=== PATIENT | male | born 1960 | race Caucasian/White ===

== ENCOUNTER → 2019-06-26 16:14 | Outpatient (CLI) | payer BC, SELFPAY ==
[2019-06-26 17:05] VITALS: BMI 50.0
== END ==
PROVIDERS: PCP Family Medicine; Visit Provider Family Medicine
DX: Z71.3 Dietary counseling and surveillance (principal)
CPT/HCPCS: 97802

== ENCOUNTER 2020-01-22 21:07 | Inpatient (IN) | payer BC, SELFPAY ==
--- NOTE | 2020-01-22 20:59 | ECG_ITS ---
APPROVED REPORT Exam: Resting ECG HR:110 bpm ECG Measurements Heart Rate 110 AXES CO 210 P 44 QRSd 88 QRS -19 QT 328 T 45 QTc 443 Conclusion Sinus tachycardia with 1st degree AV block with frequent and consecutive premature ventricular complexes Inferior infarct, age undetermined Anteroseptal infarct, age undetermined Abnormal ECG Electronically signed by : Camilo Lott, 01/24/2020 10:20:58
[2020-01-22 21:05] VITALS: BP 160/115; PULSE 101; PULSE 107; RESP 20; RESP 22; TEMP 37.2; O2SAT 88; O2SAT 92; BMI 47.5
--- NOTE | 2020-01-22 21:11 | XR_ITS ---
PROCEDURE: XR CHEST 2V CLINICAL HISTORY: cough, SOA COMPARISON: No exams were available for comparison FINDINGS: Cardiomegaly with pulmonary venous congestion interstitial edema and thickening of the right minor fissure consistent with congestive heart failure. Increased density in the right perihilar region which may be due to some pulmonary edema. Oxygen tubing overlying the upper chest and neck. No effusions. No acute bony anomalies. IMPRESSION: Congestive heart failure with interstitial and pulmonary edema Dictated by: Cecilio Mcdaniels MD 01/23/2020 05:24 Cecilio Mcdaniels MD in [facility] 01/23/2020 05:24
[2020-01-22 21:27] LABS: ABG HCO3 19.6 mmhg (22.0-26.0); ABG PCO2 31.6 mmhg (35.0-45.0); ABG PH 7.41 mmol/L (7.35-7.45); ABG PO2 58.9 mmhg (80-100)
[2020-01-22 21:30] LABS: Allen's Test Acceptable; Oxygen ROOM AIR %; Source Right Radial
[2020-01-22 21:31] LABS: ABG Base Excess -3.8 mmol/L (-2.4-2.3); ABG Oxygen Saturation 89 % (90-100)
[2020-01-22 21:35] VITALS: BP 139/76; PULSE 62; RESP 20; O2SAT 90
[2020-01-22 21:51] LABS: Lactic Acid 2.3 mmol/L (0.7-2.1)
[2020-01-22 22:28] LABS: Chloride 103 mmol/L (98-107); Sodium 139 mmol/L (136-145)
[2020-01-22 22:29] LABS: Basophils # 0.1 K/mm3 (0-0.2); Basophils % 0.4 % (0.1-2.0); Eosinophils # 0.4 K/mm3 (0.0-0.4); Eosinophils % 2.9 % (0.1-12.0); Hematocrit 49.7 % (42.0-52.0); Hemoglobin 16.5 g/dL (14.1-18.0); Lymphocytes # 2.9 K/mm3 (0.7-4.5); Mean Corpuscular HGB Conc 33.3 g/dL (31.8-35.4); Mean Corpuscular Hemoglobin 27.4 pg (27.0-31.2); Mean Corpuscular Volume 82.3 fl (80-94); Mean Platelet Volume 8.2 fl (7.4-10.4); Monocytes # 0.7 K/mm3 (0.1-1.0); Monocytes % 5.7 % (1.7-9.3); Neutrophils # 8.1 K/mm3 (1.8-7.8); Platelet Count 237 K/mm3 (142-424); Potassium 3.6 mmoL/L (3.5-5.1); Red Blood Count 6.04 M/mm3 (4.60-6.20); Red Cell Distribution Width 14.1 % (11.5-17.5); White Blood Count 12.1 K/mm3 (4.8-10.8)
[2020-01-22 22:30] VITALS: BP 142/93; PULSE 91; O2SAT 91
[2020-01-22 22:31] LABS: Alanine Aminotransferase 41 U/L (12-78); Albumin Level 4.4 g/dl (3.5-5.0); Alkaline Phosphatase 88 U/L (38-126); Anion Gap 15.6 mEq/L (5-15); Aspartate Amino Transferase 37 U/L (17-59); Bilirubin,Direct 0.2 mg/dl (0.0-0.4); Bilirubin,Indirect 0.3 mg/dL (0.0-0.9); Bilirubin,Total 0.5 mg/dl (0.2-1.3); Bilirubin,Unconjugated 0.3 mg/dL (0.0-1.1); Blood Urea Nitrogen 14 mg/dl (9-20); Calcium 9.7 mg/dl (8.4-10.2); Carbon Dioxide 24 mmol/L (22.0-30.0); Creatinine Clearance Estimated 109 mL/min (50-200); Estimated Glomerular Filt Rate 99 ml/min (>60); GFR (African American) 120 ML/MIN (>60); Glucose 206 mg/dl (74-100)
[2020-01-22 22:32] LABS: Total Protein,Serum 7.8 g/dl (6.3-8.2)
[2020-01-22 22:43] LABS: NT Pro Brain Natriuretic Pep. 491 pg/mL (0-125)
[2020-01-22 22:45] LABS: Troponin I 0.05 ng/ml (0.00-0.034)
[2020-01-22 22:50] LABS: Procalcitonin 0.082 ng/mL (0.0-2.0)
--- NOTE | 2020-01-22 22:53 | HMH.EDSOB ---
ED Disposition Clinical Impression: Non-STEMI (non-ST elevated myocardial infarction), Hyperlipidemia associated with type 2 diabetes mellitus Congestive heart failure Qualifiers: Heart failure type: unspecified Heart failure chronicity: acute Qualified Code(s): I50.9 - Heart failure, unspecified Obesity Qualifiers: Obesity type: due to excess calories Obesity classification: adult class 3 (BMI >= 40) Serious obesity comorbidity presence: without serious comorbidity Body mass index: BMI 45.0-49.9 Qualified Code(s): E66.01 - Morbid (severe) obesity due to excess calories Diabetes Qualifiers: Diabetes mellitus type: type 2 Diabetes mellitus jail insulin use: unspecified jail insulin use status Diabetes mellitus complication status: with other specified complication Qualified Code(s): E11.69 - Type 2 diabetes mellitus with other specified complication Disposition: Admitted As Inpatient Condition on Discharge: Good Referrals: Taz Patton MD [Primary Care Provider] - - Critical Care Critical Care Time: No Attestation: On 01/22/20, the high probability of a clinically significant, sudden or life threatening deterioration of the following system(s) required my full and direct attention, intervention and personal management. The time I documented below is in addition to time spent performing reported procedures but includes the following listed in this critical care notation. Medical Decision Making - Medical Records Medical records reviewed: Yes: I reviewed the patient's medical records. - Eliceo Inquiry Pt receiving controlled substance: No Vital Signs: 01/22/20 21:05 01/22/20 21:35 01/22/20 22:30 Temperature 99.0 F Temperature Source Oral Pulse Rate [Left Radial] 107 H 62 91 H Respiratory Rate 20 20 Blood Pressure [Right Arm] 160/115 H 139/76 142/93 H Blood Pressure Mean [Right Arm] 130 97 109 Blood Pressure Source [Right Arm] Automatic Cuff Automatic Cuff Automatic Cuff Blood Pressure Position [Right Arm] Sitting Sitting Supine 02 Sat by Pulse Oximetry 88 L 90 L 91 L Oxygen Delivery Method Room Air Nasal Cannula Nasal Cannula Oxygen Flow Rate (LPM) 2 2 01/22/20 23:00 01/22/20 23:30 01/23/20 00:00 Temperature Temperature Source Pulse Rate [Left Radial] 91 H 91 H 92 H Respiratory Rate Blood Pressure [Right Arm] 142/92 H 131/94 H 132/92 H Blood Pressure Mean [Right Arm] 108 106 105 Blood Pressure Source [Right Arm] Automatic Cuff Automatic Cuff Automatic Cuff Blood Pressure Position [Right Arm] Supine Supine Supine 02 Sat by Pulse Oximetry 91 L 93 L 94 L Oxygen Delivery Method Nasal Cannula Nasal Cannula Nasal Cannula Oxygen Flow Rate (LPM) 2 2 2 01/23/20 00:30 01/23/20 01:00 01/23/20 02:00 Temperature Temperature Source Pulse Rate [Left Radial] 98 H 85 Respiratory Rate 20 22 Blood Pressure [Right Arm] 132/92 H 136/96 H 137/92 H Blood Pressure Mean [Right Arm] 105 109 107 Blood Pressure Source [Right Arm] Automatic Cuff Automatic Cuff Automatic Cuff Blood Pressure Position [Right Arm] Supine Supine Supine 02 Sat by Pulse Oximetry 93 L 94 L Oxygen Delivery Method Nasal Cannula Nasal Cannula Oxygen Flow Rate (LPM) 2 2 01/23/20 02:30 01/23/20 03:00 01/23/20 04:00 Temperature Temperature Source Pulse Rate [Left Radial] 84 83 81 Respiratory Rate 22 Blood Pressure [Right Arm] 131/76 143/89 H 131/87 Blood Pressure Mean [Right Arm] 94 107 101 Blood Pressure Source [Right Arm] Automatic Cuff Automatic Cuff Automatic Cuff Blood Pressure Position [Right Arm] Supine Supine Supine 02 Sat by Pulse Oximetry 94 L 93 L 93 L Oxygen Delivery Method Nasal Cannula Nasal Cannula Nasal Cannula Oxygen Flow Rate (LPM) 2 2 2 01/23/20 05:00 Temperature Temperature Source Pulse Rate [Left Radial] 79 Respiratory Rate Blood Pressure [Right Arm] 125/86 Blood Pressure Mean [Right Arm] 99 Blood Pressure Source [Right Arm] Automatic Cuff Blood Pressure Position [Rig
[2020-01-22 23:00] VITALS: BP 142/92; PULSE 91; O2SAT 91
[2020-01-22 23:01] LABS: Coronavirus 19 IgG Antibody Negative (Negative); Coronavirus 19 IgM Antibody Negative (Negative)
[2020-01-22 23:30] VITALS: BP 131/94; PULSE 91; O2SAT 93
--- NOTE | 2020-01-22 23:49 | PC.NURSE ---
md on phone with dr sanon, covering for ami-discussing admission.
[2020-01-23] VITALS (34 sets, daily range): BP systolic 107–169; BP diastolic 50–96; PULSE 60–689; RESP 15–22; TEMP 36.7–37.2; O2SAT 84–98
--- NOTE | 2020-01-23 | IR_ITS ---
APPROVED REPORT Patient Location: Outpatient PROCEDURES Left heart catheterization Left ventriculogram Selective coronary angiogram INDICATION Flash pulmonary edema, Acute non-ST elevation myocardial infarction Informed consent was obtained prior to the procedure. COMPLICATIONS None Estimated Blood Loss: less than 10ml TECHNIQUE One percent lidocaine used to anesthetize the right anterior aspect of the wrist. The right radial artery was accessed via the Seldinger technique. A 6 Japanese sheath was placed in the right radial artery. 2.5 mg of verapamil, 800 mcg of nitroglycerin, 1mg Lidocaine and 5000 U Heparin were given through the arterial sheath. The trap catheter and 5 Japanese JL 5 catheter were also used to perform left heart catheterization, left ventriculogram and selective coronary angiogram. At the end of the procedure the sheath was removed good hemostasis was achieved using Traclet band, patient was transferred to the postop holding area in stable condition. ANGIOGRAPHIC RESULTS The left main artery Normal The left anterior descending artery Has smooth proximal 10 to 20% stenosis The circumflex artery Is a large-caliber vessel normal The right coronary artery Is a massively large dominant vessel with a mid vessel 30 to 40% concentric stenosis. The BARNEY ventriculogram reveals Severely dilated with severely reduced ejection fraction less than 35% The left ventricular end-diastolic pressure Critically elevated at 50 mmHg IMPRESSION Mild nonflow limiting coronary disease Severely dilated and severely reduced left ventricular function with critically elevated LVEDP PLAN 1. Standard therapy for systolic heart failure which should include Entresto carvedilol 2. Patient will require diuretics in order to decrease filling pressures. Start furosemide and spironolactone 3. Sleep study as soon as possible given sleep apnea as a possible etiology for patient's cardiac condition 4. Formal echocardiogram with possible LifeVest if patient is a body habitus candidate for such device 5. Medical management for coronary disease. 6. Patient's LV dysfunction is nonischemic Electronically signed by : Varinder Jerome, 01/23/2020 12:35:42
--- NOTE | 2020-01-23 00:10 | CT_ITS ---
PROCEDURE: CT ANGIO CHEST CLINCIAL INDICATION: shortness of air COMPARISON: No exams were available for comparison TECHNIQUE: IV Contrast: 70ML Isovue 370 Axial images obtained with sagittal and coronal reformats. All CT scans at the facility use one or more dose reduction, viz: automated exposure control, ma/kV adjustment per patient size (including targeted exams where dose is matched to indication, i.e. head), or iterative reconstruction technique. FINDINGS: HEART AND MEDIASTINAL STRUCTURES: There is cardiomegaly with multi chamber enlargement. No obvious aortic aneurysm. Pulmonary artery opacification is somewhat limited. No central pulmonary embolus is evident. Peripheral pulmonary arteries are not well demonstrated but no obvious embolus apparent. LUNGS AND PLEURAL SPACES: There are trace bilateral pleural effusions with diffuse ground-glass opacification of the lungs. There are also low lung volumes. There is fissural thickening greater on the right. Pulmonary vessels are engorged. There are low lung volumes. BONY STRUCTURES: No acute bony abnormalities apparent. UPPER ABDOMEN: Unremarkable. ADDITIONAL FINDINGS: Cholelithiasis. Splenomegaly at 16 cm. IMPRESSION: Cardiomegaly with diffuse interstitial edema, pulmonary venous engorgement, and trace bilateral effusions consistent with congestive heart failure. No obvious pulmonary embolus. Diffuse ground-glass attenuation of the lungs which may be due to interstitial edema. Pneumonitis is also considered. Cholelithiasis. Splenomegaly Dictated by: Cecilio Mcdaniels MD 01/23/2020 05:41 Cecilio Mcdaniels MD in [facility] 01/23/2020 05:41
[2020-01-23 00:53] LABS: Troponin I 0.28 ng/ml (0.00-0.034)
[2020-01-23 01:35] LABS: Adenovirus,PCR Not Detected (NotDetected); Bordetella Pertussis Not Detected (NotDetected); Chlamydophila Pneumoniae, PCR Not Detected (NotDetected); Coronavirus 19, PCR Not Detected (NotDetected); Coronavirus 229E Not Detected (NotDetected); Coronavirus NL63 Not Detected (NotDetected); Coronavirus OC43 Not Detected (NotDetected); Coronovirus HKU1,PCR Not Detected (NotDetected); Human Metapneumovirus Not Detected (NotDetected); Influenza A, PCR Not Detected (NotDetected); Influenza AH1, 2009 Not Detected (NotDetected); Influenza AH1, PCR Not Detected (NotDetected); Influenza AH3,PCR Not Detected (NotDetected); Influenza B, PCR Not Detected (NotDetected); Mycoplasma Pneumoniae, PCR Not Detected (NotDetected); Parainfluenza 1, PCR Not Detected (NotDetected); Parainfluenza 2, PCR Not Detected (NotDetected); Parainfluenza 3, PCR Not Detected (NotDetected); Parainfluenza 4, PCR Not Detected (NotDetected); Respiratory Syncytial Virus Not Detected (NotDetected); Rhinovirus/Enterovirus Not Detected (NotDetected)
[2020-01-23 01:37] LABS: Reflex Lactic Add Lactic Reflex
[2020-01-23 01:42] LABS: Chol/HDL Ratio 6.6 (1-3.5); Cholesterol 256 mg/dl (140-200); HDL Cholesterol 39 mg/dl (40-60); Triglycerides 274 mg/dl (30-150); VLDL Cholesterol 55 mg/dL (0-40)
--- NOTE | 2020-01-23 01:52 | PC.NURSE ---
Pt put into bariatric bed from the floor and placed on tele monitor in room 5. Pt has no complaints at this time. Urinal emptied.
[2020-01-23 01:53] LABS: Direct LDL Cholesterol 173.53 mg/dL (100-129)
[2020-01-23 02:39] LABS: Hemoglobin A1C 7.7 % (4.0-6.0)
[2020-01-23 02:39] LABS: Lactic Acid Follow Up (RFLX 1) 2.8 mmol/L (0.7-2.1)
--- NOTE | 2020-01-23 03:45 | PC.NURSE ---
notified of critical trop
[2020-01-23 04:09] LABS: Reflex Lactic (2 hrs) Add Lactic Reflex
[2020-01-23 04:22] LABS: Troponin I 0.75 ng/ml (0.00-0.034)
--- NOTE | 2020-01-23 05:38 | PC.NURSE ---
lab at bedside.
[2020-01-23 05:59] LABS: Lactic Acid Follow up (RFLX 2) 2.6 mmol/L (0.7-2.1)
--- NOTE | 2020-01-23 06:18 | CA_ITS ---
APPROVED REPORT EXAM: Comprehensive 2D, Doppler, and color-flow Echocardiogram Pre Sales Network Engineer: Deborah Courtney CRT Ht: 6 ft 0 in Wt: 350lbs BSA: 2.70 BP: 125/86 mmHg Indications: Diabetes, Obesity, Hyperlipidemia, Hypertension/HDD 2D Dimensions Aortic Root 3.53 cm LVOT 2.19 cm (M/F) 1.5-2.5 M-Mode Dimensions RVDd 3.58 cm (0.9-2.6) LA Diam 5.39 cm (1.9-4.0) LVDd 6.49 cm (3.5-5.7) Ao Diam 4.78 cm (2.0-3.7) LVDs 5.08 cm (3.5-5.7) IVSd 1.81 cm (0.6-1.1) PWd 0.96 cm (0.6-1.1) EF (Teich) 43.00% FS 21.70% EDV (Teich) 215.20 mL ESV (Teich) 122.70 mL LV Diastology E Decel Time 237.00 (160-240 msec) E/A Ratio 1.34 MED E' 3.70 (< 7 cm/sec) E'/MED E' Ratio 26.78 (>14) LAT E' 5.20 (<10 cm/sec) E/LAT E' Ratio 19.06 (>14) Aortic Valve AO Peak GR. 7.40 mmHg Mitral Valve MV A Velocity 74.00 (40-130 cm/s) E/A Ratio 1.34 MV Decel. Time 237.00 (160-240 ms) Pulmonary Valve PV Peak Velocity 67.00 (50-150 cm/s) Tricuspid Valve TR P. Velocity 186.00 cm/s RAP Estimate 10.00 mmHg RVSP 23.90 mmHg Left Ventricle Technically difficult study because of the patient factors and poor acoustic windows. Left atrium is mildly enlarged, left ventricle is mildly dilated, visually estimated ejection fraction approximately 45%, left ventricle appears to be mildly globally hypokinetic. Grade 1 diastolic dysfunction seen with tissue Doppler evidence of raise left atrial pressure. Right Ventricle Right atrium and right ventricle mildly enlarged with normal contractility. Aortic Valve Aortic valve is minimally thickened and fibrosed, there is no aortic stenosis or aortic insufficiency. Mitral Valve Mitral valve has mitral calcification, leaflets are minimally thickened with no mitral stenosis, there is mild mitral regurgitation. Tricuspid Valve Tricuspid valve is grossly normal, there is mild tricuspid regurgitation, tricuspid regurgitation jet velocity is inadequate for calculation of the right ventricular systolic pressure. Pulmonic Valve Pulmonic valve is poorly visualized. Great Vessels Aortic root is normal size. Pericardium No significant pericardial effusion noted. Conclusion 1. Biatrial enlargement, mildly dilated left ventricle, mild concentric left ventricular hypertrophy, visually estimated ejection fraction 45%, left ventricle is mildly globally hypokinetic, grade 1 diastolic dysfunction seen with tissue Doppler evidence of raise left atrial pressure. 2. Mildly enlarged right ventricle with normal contractility. 3. Mild mitral and tricuspid regurgitation. 4. No significant pericardial effusion noted. Electronically signed by : Mk Mcclure, 01/23/2020 13:12:24
--- NOTE | 2020-01-23 06:18 | PC.NURSE ---
Davonte Feliz at this time.
--- NOTE | 2020-01-23 06:18 | PC.NURSE ---
called and spoke with krysta, echo ordered
--- NOTE | 2020-01-23 06:19 | PC.NURSE ---
Graham speaking with at this time.
--- NOTE | 2020-01-23 07:21 | PC.NURSE ---
echo leaving bedside at this time.
--- NOTE | 2020-01-23 07:31 | PC.NURSE ---
Dr Stevenson speaking with Dr Patton at this time.
--- NOTE | 2020-01-23 07:46 | PC.NURSE ---
pt glucose 290 fsbs at this time
--- NOTE | 2020-01-23 07:51 | PC.NURSE ---
per low intensity scale order pt given 6 units humalog SQ at this time
[2020-01-23 08:44] LABS: POC Glucose,Bedside 290 (70-110)
--- NOTE | 2020-01-23 08:45 | PC.NURSE ---
Dr Patton at bedside
--- NOTE | 2020-01-23 09:43 | HMH.HP ---
*Admission Date: 01/23/20 <Phuong Dwyer 01/23/20 10:01> *Chief complaint: SOA, cough <Phuong Dwyer 01/23/20 10:01> *History of present illness: Mr. Mendez is a 59yo male with a hx of Type 2 DM, HLP, and HTN who has had 2-3 weeks of congestion and productive cough. He states after walking out of [employer] he had a coughing fit and became SOA. He denies nausea, vomiting, diarrhea, fever, dizziness, sore throat, and [place]. He has had no known covid exposure and denies tobacco use and COPD. He was evaluated in the emergency room and his white blood cell count was found to be slightly elevated. His initial troponin I was 0.05, but then increased to 0.28. His respiratory panel was normal. His lactic acid was also elevated at 2.8. His EKG showed nonspecific ST?T wave changes and sinus tachycardia. He was admitted with an NSTEMI as well as congestive heart failure due to an elevated BNP and a chest x-ray showing CHF with interstitial and pulmonary edema. He had a chest CTA showing cardiomegaly with diffuse interstitial edema. There were trace bilateral effusions consistent with congestive heart failure. There was diffuse groundglass attenuation of the lungs possibly due to interstitial edema or pneumonitis. <Phuong Dwyer 01/23/20 12:03> [facility] History Medical History: Reports:: Diabetes Mellitus Type 2, Hyperlipidemia, Hypertension <Phuong Dwyer 01/23/20 10:46> *Have you ever received a pneumonia vaccine?: No <Phuong Dwyer 01/23/20 10:01> *Have you received a flu vaccine this season?: No <Phuong Dwyer 01/23/20 10:01> Laterality Cases: Bilateral: Tonsillectomy <Phuong Dwyer 01/23/20 10:01> Other Surgeries: Yes: Appendectomy, Other (mole removed, dental procedure) <Phuong Dwyer 01/23/20 10:46> Amputation: No <Phuong Dwyer 01/23/20 10:01> Fractures: No <Phuong Dwyer 01/23/20 10:01> - *Social History Smoking Status: Never smoker <Phuong Dwyer 01/23/20 10:01> Alcohol Intake: current <JosephineTaz [email or web address] 01/23/20 12:26> current <Phuong Dwyer 01/23/20 10:01> Alcohol Intake Frequency:: holidays/special occasions only <Taz Patton 01/23/20 12:26> holidays/special occasions only <Phuong Dwyer 01/23/20 10:01> Substance Use Type: denies use <Taz Patton 01/23/20 12:26> denies use <Phuong Dwyer 01/23/20 10:01> *Occupational Status:: employed <Taz Patton 01/23/20 12:26> *Travel in the last 8 weeks: Inside the [place] <Taz Patton 01/23/20 12:26> Family Hx:: Cancer, Coronary Artery Disease, Heart Attack, Stroke, Other (Alzheimers) <Phuong Dwyer 01/23/20 12:03> Review of Systems - Constitutional Denies chills, Denies fever(s) <Taz Patton 01/23/20 12:22> - Eyes Denies blurry vision <Taz Patton 01/23/20 12:22> - ENT Reports dry mouth <Taz Patton 01/23/20 12:22> - *Respiratory Denies coughing up blood <Taz Patton 01/23/20 12:22> - *Gastrointestinal Denies abdominal pain <Taz Patton 01/23/20 12:22> - *Musculoskeletal Denies joint pain <Taz Patton 01/23/20 12:22> - Integumentary/Breasts Denies rash <Taz Patton 01/23/20 12:22> - *Neurologic Denies headache(s), Denies seizure-like activity <Phuong Dwyer 01/23/20 10:01> - Psychiatric Denies confusion <Taz Patton 01/23/20 12:22> Meds Home Medications Medication Instructions Recorded Confirmed Type lisinopril 10 1 tab PO ONCE 08/02/17 01/22/20 History mg-hydrochlorothiazide 12.5 mg tablet Metformin HCl [Metformin HCl ER] 500 mg PO BID 01/22/20 01/22/20 History <Taz Patton - 01/23/20 12:26> Allergies Allergy/AdvReac Type Severity Reaction Status Date / Time No Known Allergies Allergy Verified 08/21/17 09:34 <Taz Patton - 01/23/20 12:26> Exam Vital signs and Labs for Last 24 Hours: Temp Pu
--- NOTE | 2020-01-23 09:51 | PC.NURSE ---
dairy laboratory technician called about pt status and asked if he would be having a heart cath today. this nurse informed them that we havent been given an answer from cardiology if pt would be having a heart cath yet today and that the pt hasnt had any heart cath meds yet at this time.
--- NOTE | 2020-01-23 10:14 | PC.NURSE ---
cardiology at bedside
--- NOTE | 2020-01-23 10:31 | HMH.CNCARD ---
History of Present Illness Consult date: 01/23/20 Requesting physician: Ahmet Villalta Consult reason: chest pain, shortness of breath Chief complaint: chest pain and soa History of present illness: This is a 59-year-old white gentleman who presented to the emergency department with complaints of shortness of breath. He states that he was at [facility] yesterday and he began to be very short of breath. This was associated with tightness and pressure in his chest. He states that this got worse the more he walked around. He states that he came outside to get in the car but the shortness of breath was so bad that he was unable to sit in the car. He states that the shortness of breath was associated with a cough. He was also clammy and diaphoretic. He denies any nausea. He denies any fever, chills, nausea, vomiting or diarrhea. He states that there was no radiation of the chest pressure and tightness. Upon arrival to the emergency department he was found to have a troponin of 0.05 and his repeat troponin was 0.28 consistent with a non-ST elevation myocardial infarction. He also had a chest x-ray which showed pulmonary edema. He denies a previous history of CAD or an IN. He does have hypertension and diabetes. He denies hyperlipidemia. He denies any tobacco use. He states that his father had triple bypass and his mother had a history of coronary artery disease, IN and stroke. [facility] History I have reviewed the patient's past medical history: Yes Medical History: Reports:: Diabetes Mellitus Type 2, Hypertension *Have you ever received a pneumonia vaccine?: No *Have you received a flu vaccine this season?: No Laterality Cases: Bilateral: Tonsillectomy Other Surgeries: Yes: Appendectomy Amputation: No Fractures: No - *Social History Smoking Status: Never smoker Alcohol Intake: current Alcohol Intake Frequency:: holidays/special occasions only Substance Use Type: denies use *Occupational Status:: employed *Travel in the last 8 weeks: None Family Hx:: No significant family history Meds Home Medications Medication Instructions Recorded Confirmed Type lisinopril 10 1 tab PO ONCE 08/02/17 01/22/20 History mg-hydrochlorothiazide 12.5 mg tablet Metformin HCl [Metformin HCl ER] 500 mg PO BID 01/22/20 01/22/20 History Allergies Allergy/AdvReac Type Severity Reaction Status Date / Time No Known Allergies Allergy Verified 08/21/17 09:34 Exam Vital signs and Labs for Last 24 Hours: Temp Pulse Resp BP Pulse Ox 99.0 F 76 17 127/75 94 L 01/22/20 21:05 01/23/20 10:05 01/23/20 07:20 01/23/20 10:05 01/23/20 10:05 Laboratory Results - last 24 hr 01/22/20 21:00: WBC 12.1 H, RBC 6.04, Hgb 16.5, Hct 49.7, MCV 82.3, MCH 27.4, MCHC 33.3, RDW 14.1, Plt Count 237, MPV 8.2, Neut % (Auto) 67.0, Lymph % (Auto) 24.0, [place] % (Auto) 5.7, Eos % (Auto) 2.9, Baso % (Auto) 0.4, Neut # (Auto) 8.1 H, Lymph # (Auto) 2.9, [place] # (Auto) 0.7, Eos # (Auto) 0.4, Baso # (Auto) 0.1 01/22/20 21:00: Sodium 139, Potassium 3.6, Chloride 103, Carbon Dioxide 24, Anion Gap 15.6 H, BUN 14, Creatinine 0.80, Estimated Creat Clear 109, Estimated GFR 99, Est GFR ( Amer) 120, Glucose 206 H, Calcium 9.7, Total Bilirubin 0.5, Direct Bilirubin 0.2, Conjugated Bilirubin 0.0, Indirect Bilirubin 0.3, Unconjugated Bilirubin 0.3, AST 37, ALT 41, Alkaline Phosphatase 88, Troponin I 0.05 H, Total Protein 7.8, Albumin 4.4, Procalcitonin 0.082 01/22/20 21:00: NT-Pro-B Natriuret Pep 491 H 01/22/20 21:00: SARS-CoV-2 IgG Ab (Rapid) Negative, SARS-CoV-2 IgM Ab (Rapid) Negative 01/22/20 21:20: Lactate 2.3 H 01/22/20 21:23: Specimen Source Right radial, O2 % Room air, ABG pH 7.41, ABG pCO2 31.6 L, ABG pO2 58.9 L, ABG HCO3 19.6 L, ABG Total CO2 Not Reportable, ABG O2 Saturation 89 L, ABG Base Excess -3.8 L, Cecilio Test Acceptable 01/23/20 00:00: Troponin I 0.28 H 01/23/20 00:00: Hemoglobin A1c 7.7 H 01/23/20 00:00: Triglycerides 274 H, Cholesterol 256 H, LDL Cholesterol Di
--- NOTE | 2020-01-23 13:06 | HMH.PHAINT ---
home medication list confirmed using list from clinic pharmacy
--- NOTE | 2020-01-23 13:08 | P.CONPHA_ITS ---
[facility] Pharmacy VTE Monitoring - Patient Demographics Admission date: 01/23/20 Report Date: 01/23/20 Time: 13:08 Allergies/Adverse Reactions: Patient Allergies No Known Allergies Allergy (Verified 08/21/17 09:34) Height: 1.83 m Weight: 158.757 kg Patient Problems: Current Active Problems Congestive heart failure (Acute) Obesity (Chronic) Non-STEMI (non-ST elevated myocardial infarction) (Acute) Diabetes (Chronic) Hyperlipidemia associated with type 2 diabetes mellitus (Acute) SOB (shortness of breath) (Acute) Typical angina (Acute) HTN (hypertension) (Chronic) HLD (hyperlipidemia) (Chronic) Morbid obesity (Chronic) DM type 2 (diabetes mellitus, type 2) (Acute) - VTE Risk Labs: VTE Related Lab Results Hgb 16.5 g/dL (14.1-18.0) 01/22/20 21:00 Hct 49.7 % (42.0-52.0) 01/22/20 21:00 Plt Count 237 K/mm3 (142-424) 01/22/20 21:00 BUN 14 mg/dl (9-20) 01/22/20 21:00 Creatinine 0.80 mg/dl (0.66-1.25) 01/22/20 21:00 Estimated Creat Clear 109 mL/min (50-200) 01/22/20 21:00 Clinical Trial Participant: No - Prophylaxis VTE Prophylaxis Ordered?: Yes Types of VTE Prophylaxis: TEDS Knee High
[2020-01-23 17:14] LABS: POC Glucose,Bedside 244 (70-110)
[2020-01-23 22:42] LABS: POC Glucose,Bedside 163 (70-110)
[2020-01-24] VITALS: BP 143/81; PULSE 66; RESP 20; TEMP 36.6; O2SAT 96
[2020-01-24 03:58] VITALS: PULSE 60
[2020-01-24 04:00] VITALS: BP 128/59; PULSE 67; RESP 18; TEMP 36.4; O2SAT 95
--- NOTE | 2020-01-24 04:23 | PC.NURSE ---
Pt is alert and oriented x4. Tolerated RA well with no c/o SOA. Lungs noted clear t/o upon auscultation. RR noted even and unlabored. Pt rested well with eyes closed this shift. Ambulates independently to and from bathroom. Independent use of urinal. Adequate urine output noted. Urine clear and dark/bright yellow in color. +1 non-pitting edema noted to BLE. slasher operator noted NSR. Cath site noted C/D/I. No s/s of hematoma noted. VSS. Remains safe. Call light within reach. Spouse at bedside t/o shift. Will continue to monitor.
[2020-01-24 05:15] VITALS: BMI 46.7
[2020-01-24 05:49] LABS: POC Glucose,Bedside 170 (70-110)
--- NOTE | 2020-01-24 07:47 | HMH.PNCARD ---
Subjective Date: 01/24/20 Time: 07:47 Principal diagnosis: NSTEMI Interval history: 59-year-old white male in bed in no acute distress. Denies any chest pain, pressure or tightness overnight. Shortness of breath has improved. His weight has dropped at least 5 pounds due to diuretics. Exam Vital signs and Labs for Last 24 Hours: Temp Pulse Resp BP Pulse Ox 97.5 F L 67 18 128/59 L 95 01/24/20 04:00 01/24/20 04:00 01/24/20 04:00 01/24/20 04:00 01/24/20 04:00 Laboratory Results - last 24 hr 01/23/20 07:45: POC Glucose 290 H 01/23/20 16:59: POC Glucose 244 H 01/23/20 21:41: POC Glucose 163 H 01/24/20 05:22: POC Glucose 170 H I & O for Last 24 hours: Intake & Output 01/21/20 01/22/20 01/23/20 01/24/20 11:59 11:59 11:59 11:59 Intake Total 1139 / 1139 Output Total 2450 / 2450 1800 / 1800 Balance -2450 / -2450 -661 / -661 Weight 350 lb 345 lb 4 oz Microbiology Reports for the Last 24 Hours: Microbiology 01/22/20 21:07 Sputum - Expectorated Sputum Gram Stain - Final - Constitutional no acute distress, morbidly obese - *Routine Respiratory Exam Present: CTA bilaterally - *Routine Cardiovascular Exam Present: RRR - *Routine Abdominal Exam Present: soft, normoactive bowel sounds. Absent: tenderness - *Routine Extremities Exam Present: edema. Absent: cyanosis, clubbing - *Routine Neurological Exam Present: alert, oriented X3 Progress Note: A&P (1) Non-STEMI (non-ST elevated myocardial infarction) Status: Acute (2) Typical angina Status: Acute (3) SOB (shortness of breath) Status: Acute (4) Congestive heart failure Status: Acute (5) HLD (hyperlipidemia) Status: Chronic (6) HTN (hypertension) Status: Chronic (7) Morbid obesity Status: Chronic (8) DM type 2 (diabetes mellitus, type 2) Status: Acute Assessment and Plan for All Diagnoses:: 1. Non-ST elevation OR secondary to acute on chronic diastolic congestive heart failure with LVEDP of 50 mmHg on left heart catheterization. Patient has mild nonflow limiting coronary artery disease. Renal functions pending at this time. 2. Obstructive sleep apnea, patient has a BiPAP or CPAP machine at home but will need a part of it changed out due to recent malfunction 3. Morbid obesity 4. Diabetes mellitus 5. Mild cardiomyopathy, now on lisinopril and metoprolol along with Lasix and spironolactone. Home med recommendations Aspirin 81 mg daily Atorvastatin 80 mg daily Lisinopril 10 mg daily Metoprolol succinate XL 25 mg daily Lasix 40 mg twice daily Spironolactone 25 mg twice daily Okay for discharge from cardiology standpoint with follow-up in our office in 1 to 2 weeks.
[2020-01-24 07:50] LABS: Basophils # 0.1 K/mm3 (0-0.2); Basophils % 0.4 % (0.1-2.0); Eosinophils # 0.2 K/mm3 (0.0-0.4); Eosinophils % 1.2 % (0.1-12.0); Hematocrit 43.1 % (42.0-52.0); Hemoglobin 13.9 g/dL (14.1-18.0); Lymphocytes # 2.6 K/mm3 (0.7-4.5); Lymphocytes % 20.6 % (10-50); Mean Corpuscular HGB Conc 32.3 g/dL (31.8-35.4); Mean Corpuscular Hemoglobin 26.6 pg (27.0-31.2); Mean Corpuscular Volume 82.4 fl (80-94); Mean Platelet Volume 7.7 fl (7.4-10.4); Monocytes # 0.7 K/mm3 (0.1-1.0); Monocytes % 5.8 % (1.7-9.3); Neutrophils # 9.1 K/mm3 (1.8-7.8); Neutrophils % 72.1 % (37.0-80.0); Platelet Count 236 K/mm3 (142-424); Red Blood Count 5.23 M/mm3 (4.60-6.20); Red Cell Distribution Width 14.3 % (11.5-17.5); White Blood Count 12.6 K/mm3 (4.8-10.8)
[2020-01-24 07:54] LABS: Chloride 102 mmol/L (98-107); Potassium 3.8 mmoL/L (3.5-5.1); Sodium 137 mmol/L (136-145)
[2020-01-24 07:57] LABS: Anion Gap 10.8 mEq/L (5-15); Blood Urea Nitrogen 24 mg/dl (9-20); Carbon Dioxide 28 mmol/L (22.0-30.0); Creatinine Clearance Estimated 97 mL/min (50-200); Estimated Glomerular Filt Rate 86 ml/min (>60); GFR (African American) 105 ML/MIN (>60); Glucose 166 mg/dl (74-100)
[2020-01-24 08:00] VITALS: BP 137/78; PULSE 64; RESP 22; TEMP 36.4; O2SAT 95
--- NOTE | 2020-01-24 08:48 | HMH.ACPN2 ---
<Phuong Dwyer - Last Filed: 01/24/20 08:48> Internal Medicine - PN: Subj *Date: 01/24/20 *Time: 08:48 Interval history: Patient is feeling much better today. He denies any chest pain or shortness of breath this morning. He has been up moving around his room, slept well, and ate a good breakfast. He is anxious to go home. Exam Vital signs and Labs for Last 24 Hours: Temp Pulse Resp BP Pulse Ox 97.6 F 64 22 137/78 95 01/24/20 08:00 01/24/20 08:00 01/24/20 08:00 01/24/20 08:00 01/24/20 08:00 Laboratory Results - last 24 hr 01/23/20 16:59: POC Glucose 244 H 01/23/20 21:41: POC Glucose 163 H 01/24/20 05:22: POC Glucose 170 H 01/24/20 07:23: WBC 12.6 H, RBC 5.23, Hgb 13.9 L, Hct 43.1, MCV 82.4, MCH 26.6 L, MCHC 32.3, RDW 14.3, Plt Count 236, MPV 7.7, Neut % (Auto) 72.1, Lymph % (Auto) 20.6, Kane % (Auto) 5.8, Eos % (Auto) 1.2, Baso % (Auto) 0.4, Neut # (Auto) 9.1 H, Lymph # (Auto) 2.6, Kane # (Auto) 0.7, Eos # (Auto) 0.2, Baso # (Auto) 0.1 01/24/20 07:23: Sodium 137, Potassium 3.8, Chloride 102, Carbon Dioxide 28, Anion Gap 10.8, BUN 24 H D, Creatinine 0.90, Estimated Creat Clear 97, Estimated GFR 86, Est GFR ( Amer) 105, Glucose 166 H, Calcium 9.0 I & O for Last 24 hours: Intake & Output 01/21/20 01/22/20 01/23/20 01/24/20 11:59 11:59 11:59 11:59 Intake Total 1499 / 1499 Output Total 2450 / 2450 1800 / 1800 Balance -2450 / -2450 -301 / -301 Weight 350 lb 345 lb 4 oz Microbiology Reports for the Last 24 Hours: Microbiology 01/22/20 21:07 Sputum - Expectorated Sputum Gram Stain - Final Radiology Reports for the Last 24 Hours: Heart Cath IMPRESSION Mild nonflow limiting coronary disease Severely dilated and severely reduced left ventricular function with critically elevated LVEDP PLAN 1. Standard therapy for systolic heart failure which should include Entresto carvedilol 2. Patient will require diuretics in order to decrease filling pressures. Start furosemide and spironolactone 3. Sleep study as soon as possible given sleep apnea as a possible etiology for patient's cardiac condition 4. Formal echocardiogram with possible LifeVest if patient is a body habitus candidate for such device 5. Medical management for coronary disease. 6. Patient's LV dysfunction is nonischemic - Constitutional no acute distress - *Routine Respiratory Exam Present: CTA bilaterally - *Routine Cardiovascular Exam Present: RRR - *Routine Abdominal Exam Present: soft, normoactive bowel sounds. Absent: tenderness - *Routine Extremities Exam Present: edema. Absent: cyanosis, clubbing - *Routine Skin Exam Present: warm. Absent: rash - *Routine Neurological Exam Present: alert, oriented X3 Assessment and Plan (1) Non-STEMI (non-ST elevated myocardial infarction) Status: Acute Category: Medical Code(s): I21.4 - Non-ST elevation (NSTEMI) myocardial infarction (2) Typical angina Status: Acute Category: Medical Code(s): I20.9 - Angina pectoris, unspecified (3) SOB (shortness of breath) Status: Acute Category: Medical Code(s): R06.02 - Shortness of breath (4) Congestive heart failure Status: Acute Qualifiers: Heart failure type: unspecified Heart failure chronicity: acute Qualified Code(s): I50.9 - Heart failure, unspecified Category: Medical Code(s): I50.9 - Heart failure, unspecified (5) HLD (hyperlipidemia) Status: Chronic Qualifiers: Hyperlipidemia type: mixed hyperlipidemia Qualified Code(s): E78.2 - Mixed hyperlipidemia Category: Medical Code(s): E78.5 - Hyperlipidemia, unspecified (6) HTN (hypertension) Status: Chronic Qualifiers: Hypertension type: essential hypertension Qualified Code(s): I10 - Essential (primary) hypertension Category: Medical Code(s): I10 - Essential (primary) hypertension (7) Morbid obesity Status: Chronic Category: Medical Code(s): E66.01 - Morbid (severe) obes
--- NOTE | 2020-01-24 12:30 | HMH.DCSUM ---
General - General Admission date:: 01/23/20 <Taz Patton - 01/24/20 18:47> 01/23/20 <Phuong Dwyer - 01/24/20 12:32> Discharge date: 01/24/20 <ReymundoPhuong - 01/24/20 12:32> HPI HPI: Mr. Mendez is a 59yo male with a hx of Type 2 DM, HLP, and HTN who has had 2-3 weeks of congestion and productive cough. He states after walking out of [employer] he had a coughing fit and became SOA. He denies nausea, vomiting, diarrhea, fever, dizziness, sore throat, and COEL[place]. He has had no known covid exposure and denies tobacco use and COPD. He was evaluated in the emergency room and his white blood cell count was found to be slightly elevated. His initial troponin I was 0.05, but then increased to 0.28. His respiratory panel was normal. His lactic acid was also elevated at 2.8. His EKG showed nonspecific ST?T wave changes and sinus tachycardia. He was admitted with an NSTEMI as well as congestive heart failure due to an elevated BNP and a chest x-ray showing CHF with interstitial and pulmonary edema. He had a chest CTA showing cardiomegaly with diffuse interstitial edema. There were trace bilateral effusions consistent with congestive heart failure. There was diffuse groundglass attenuation of the lungs possibly due to interstitial edema or pneumonitis. <ReymundoPhuong - 01/24/20 12:32> Hospital Course Hospital Course: The patient was taken to the [facility]. His heart cath showed mild nonflow limiting coronary artery disease and a severely dilated and reduced left ventricular function with a critically elevated LVEDP. Cardiology recommended starting him on Lasix 40 mg IV twice daily as well as Aldactone 25 mg twice daily. The patient had an echo showing an EF of 45% and a grade 1 diastolic dysfunction with a raised left atrial pressure. By 01/24/2020, the patient was feeling much better. He denies any chest pain or tightness. His shortness of breath improved. He lost 5 pounds due to diuretics. He was stable to be discharged home on aspirin 81 mg, atorvastatin 80 mg, lisinopril 10 mg, metoprolol succinate 25 mg, Lasix 40 mg twice daily, and spironolactone 25 mg twice daily. He will follow-up with cardiology in 1 to 2 weeks. <Phuong Dwyer - 01/24/20 12:32> Objective Vital signs: Temp Pulse Resp BP Pulse Ox 97.6 F 64 22 137/78 95 01/24/20 08:00 01/24/20 08:00 01/24/20 08:00 01/24/20 08:00 01/24/20 08:00 <Taz Patton - 01/24/20 18:47> Temp Pulse Resp BP Pulse Ox 97.6 F 64 22 137/78 95 01/24/20 08:00 01/24/20 08:00 01/24/20 08:00 01/24/20 08:00 01/24/20 08:00 <Phuong Dwyer - 01/24/20 12:32> Narrative: - Constitutional no acute distress - *Routine Respiratory Exam Present: CTA bilaterally - *Routine Cardiovascular Exam Present: RRR - *Routine Abdominal Exam Present: soft, normoactive bowel sounds. Absent: tenderness - *Routine Extremities Exam Present: edema. Absent: cyanosis, clubbing - *Routine Skin Exam Present: warm. Absent: rash - *Routine Neurological Exam Present: alert, oriented X3 <Phuong Dwyer - 01/24/20 12:32> Results Labs on day of discharge: Labs from last 24 hours 01/24/20 01/24/20 01/24/20 07:23 07:23 05:22 WBC 12.6 H RBC 5.23 Hgb 13.9 L Hct 43.1 MCV 82.4 MCH 26.6 L MCHC 32.3 RDW 14.3 Plt Count 236 MPV 7.7 Neut % (Auto) 72.1 Lymph % (Auto) 20.6 [place] % (Auto) 5.8 Eos % (Auto) 1.2 Baso % (Auto) 0.4 Neut # (Auto) 9.1 H Lymph # (Auto) 2.6 [place] # (Auto) 0.7 Eos # (Auto) 0.2 Baso # (Auto) 0.1 Sodium 137 Potassium 3.8 Chloride 102 Carbon Dioxide 28 Anion Gap 10.8 BUN 24 H D Creatinine 0.90 Estimated Creat Clear 97 Estimated GFR 86 Est GFR ( Amer) 105 Glucose 166 H POC Glucose 170 H Calcium 9.0 01/23/20 21:41 WBC RBC Hgb Hct MCV MCH MCHC RDW Plt Count MPV Neut % (Auto)
== END 2020-01-24 10:55 | disposition home or self-care (01) | DRG 280 ==
LOC: ER 01-23 10:14 → CATHLAB 01-23 11:27 → 2ND 01-23 12:29
PROVIDERS: Internal Medicine; Admitting Provider Family Medicine; Emergency Provider Emergency Medicine; PCP Family Medicine; Visit Provider Family Medicine
PROC: 4A023N7 Measurement of Cardiac Sampling and Pressure, Left Heart, Percutaneous Approach (ICD-10-PCS; principal; 2020-01-23 11:15)
DX: I21.4 Non-ST elevation (NSTEMI) myocardial infarction (principal); I50.33 Acute on chronic diastolic (congestive) heart failure; Z68.42 Body mass index [BMI] 45.0-49.9, adult; I42.9 Cardiomyopathy, unspecified; I11.0 Hypertensive heart disease with heart failure; E66.01 Morbid (severe) obesity due to excess calories; I25.118 Atherosclerotic heart disease of native coronary artery with other forms of angina pectoris; E78.5 Hyperlipidemia, unspecified; E11.9 Type 2 diabetes mellitus without complications; Z79.84 Long term (current) use of oral hypoglycemic drugs; Z79.899 Other long term (current) drug therapy; Z82.49 Family history of ischemic heart disease and other diseases of the circulatory system
CPT/HCPCS: 36415; 71046; 71275; 80048; 80061; 80076; 82803; 82962; 83036; 83605; 83880; 84145; 84484; 85025; 86328; 87040; 87070; 87205; 87581; 87633; 87798; 93005; 93306; 93458; 96365; 96372; 99152; 99284; C1725; C1760; C1769; J1644; J1956; Q9967

== ENCOUNTER → 2020-02-04 10:40 | Outpatient (CLI) | payer BC, SELFPAY ==
[2020-02-04 11:51] LABS: Chloride 98 mmol/L (98-107); Potassium 4.6 mmoL/L (3.5-5.1); Sodium 136 mmol/L (136-145)
[2020-02-04 11:54] LABS: Anion Gap 13.6 mEq/L (5-15); Blood Urea Nitrogen 18 mg/dl (9-20); Carbon Dioxide 29 mmol/L (22.0-30.0); Estimated Glomerular Filt Rate 86 ml/min (>60); GFR (African American) 105 ML/MIN (>60)
[2020-02-04 11:55] LABS: Calcium 9.6 mg/dl (8.4-10.2); Glucose 206 mg/dl (74-100)
== END ==
PROVIDERS: Visit Provider Nurse Practitioner Family
DX: R06.02 Shortness of breath (principal); I20.9 Angina pectoris, unspecified; I42.8 Other cardiomyopathies; E11.69 Type 2 diabetes mellitus with other specified complication; E66.9 Obesity, unspecified; E78.5 Hyperlipidemia, unspecified; I10 Essential (primary) hypertension; I50.9 Heart failure, unspecified; Z79.84 Long term (current) use of oral hypoglycemic drugs
CPT/HCPCS: 36415; 80048

== ENCOUNTER → 2020-02-10 11:27 | Outpatient (CLI) | payer BC, SELFPAY | PROVIDERS: PCP Family Medicine; Visit Provider Nurse Practitioner Family | DX: G47.33 Obstructive sleep apnea (adult) (pediatric) (principal); R09.02 Hypoxemia; R06.02 Shortness of breath; I50.9 Heart failure, unspecified; E66.01 Morbid (severe) obesity due to excess calories | CPT/HCPCS: G0399 ==

== ENCOUNTER 2020-09-29 23:13 | Inpatient (IN) | payer BC, SELFPAY ==
[2020-09-29 23:50] VITALS: BP 130/82; PULSE 81; RESP 16; TEMP 36.5; O2SAT 98; BMI 46.0
[2020-09-30] VITALS (12 sets, daily range): BP systolic 113–151; BP diastolic 56–89; PULSE 60–81; RESP 16–18; TEMP 36.3–37.1; O2SAT 95–100; BMI 44.7; BMI 44.8
--- NOTE | 2020-09-30 00:04 | ECG_ITS ---
APPROVED REPORT Exam: Resting ECG HR:81 bpm ECG Measurements Heart Rate 81 AXES CO 218 P 35 QRSd 92 QRS -33 QT 372 T 49 QTc 432 Conclusion Sinus rhythm with 1st degree AV block with occasional premature ventricular complexes Left axis deviation Low voltage QRS Inferior infarct, age undetermined Cannot rule out Anterior infarct, age undetermined Abnormal ECG Electronically signed by : Camilo Lott MD 09/30/2020 08:36:35
--- NOTE | 2020-09-30 00:21 | CT_ITS ---
PROCEDURE INFORMATION: Exam: CT Abdomen And Pelvis Without Contrast Exam date and time: 09/30/2020 12:21 AM Age: 60 years old Clinical indication: Nausea and vomiting; Prior surgery; Surgery type: Appendix; Patient HX: N/v with abd pain above belly button TECHNIQUE: Imaging protocol: Computed tomography of the abdomen and pelvis without contrast. Total images: 383 Radiation optimization: All CT scans at this facility use at least one of these dose optimization techniques: automated exposure control; mA and/or kV adjustment per patient size (includes targeted exams where dose is matched to clinical indication); or iterative reconstruction. COMPARISON: CT ANGIO CHEST 01/23/2020 12:47 AM FINDINGS: Lungs: Patchy scarring or atelectasis in the lung bases. Granulomatous calcifications in the lung bases. Mediastinal space: The visualized distal esophagus is normal. Liver: Normal contour. No mass lesions. No intrahepatic biliary ductal dilatation. Granulomatous calcifications in the liver. Gallbladder and bile ducts: Multiple gallstones in the gallbladder measuring up to 2.9 cm. No gallbladder wall thickening or adjacent stranding to suggest cholecystitis. Nondilated bile ducts. Pancreas: Normal. No inflammatory changes or ductal dilation. Spleen: Splenomegaly measuring 16.6 cm. Scattered granulomatous calcifications in the spleen. Adrenal glands: Normal. No adrenal mass. Kidneys and ureters: Moderate-severe right hydronephrosis with a 2.1 by 1.1 x 1.4 cm right UPJ stone. Additional smaller stones measuring between 2 mm and 7 mm with intermixed calcific sludge/milk of calcium are also seen layering dependently in the right renal pelvis and calices. On the left there is moderate-severe hydronephrosis with a 12 x 7 x 10 mm left UPJ stone. Additional layering small stones versus calcific sludge in the lower pole calyx of the left kidney. No distal ureteral stones. Stomach and bowel: The stomach is unremarkable. Mildly dilated proximal small bowel in the upper abdomen measuring up to 3.5 cm diameter with associated mesenteric edema/stranding. This transitions to nondilated distal small bowel loops in the right lower quadrant and raises concern for early or partial small bowel obstruction. No evidence of perforation or abscess. Consider short-term imaging follow-up or small-bowel follow-through as clinically indicated. Mild diverticulosis involving the distal colon without evidence of acute diverticulitis. Appendix: The appendix is not identified. No secondary signs of appendicitis. Intraperitoneal space: Small volume reactive ascites in the pelvis. No free air. There is 6.4 x 5.3 by 4.9 cm fat density mass in the mid abdominal mesenteric fat most likely representing a lipoma, probably arising from the superficial margin of adjacent bowel loop just superior to this level. This does not appear to be the source of the small bowel obstruction. There is a single internal septation or vessel in the inferior aspect. Consider imaging follow-up in 6-12 months or as clinically indicated to confirm long-term stability Vasculature: Mild cardiomegaly.Mild coronary artery calcification. No acute process. No abdominal aortic aneurysm. Lymph nodes: No adenopathy. Urinary bladder: Unremarkable as visualized. Reproductive: Mildly enlarged prostate. Bones/joints: No acute osseous abnormalities. Soft tissues: Unremarkable. IMPRESSION: 1. There are findings concerning for early or partial small bowel obstruction. The precise transition point is not identified. No evidence of perforation or abscess. Consider short-term imaging follow-up or small-bowel follo
[2020-09-30 00:28] LABS: POC Glucose,Bedside 206 (70-110)
[2020-09-30 00:35] LABS: Basophils # 0.1 K/mm3 (0-0.2); Basophils % 0.6 % (0.1-2.0); Eosinophils # 0.3 K/mm3 (0.0-0.4); Eosinophils % 1.3 % (0.1-12.0); Hematocrit 38.5 % (42.0-52.0); Lymphocytes # 1.9 K/mm3 (0.7-4.5); Mean Corpuscular HGB Conc 33.7 g/dL (31.8-35.4); Mean Corpuscular Hemoglobin 27.6 pg (27.0-31.2); Mean Corpuscular Volume 82.1 fl (80-94); Monocytes # 0.7 K/mm3 (0.1-1.0); Monocytes % 3.6 % (1.7-9.3); Neutrophils % 84.5 % (37.0-80.0); Platelet Count 317 K/mm3 (142-424); Red Blood Count 4.69 M/mm3 (4.60-6.20); Red Cell Distribution Width 13.9 % (11.5-17.5); White Blood Count 18.9 K/mm3 (4.8-10.8)
--- NOTE | 2020-09-30 00:35 | HMH.EDNVD ---
ED Disposition Clinical Impression: SBO (small bowel obstruction), Hyperlipidemia associated with type 2 diabetes mellitus, DAVID (acute kidney injury), Calculus of kidney Obesity Qualifiers: Obesity type: due to excess calories Obesity classification: adult class 3 (BMI >= 40) Serious obesity comorbidity presence: with serious comorbidity Body mass index: BMI 45.0-49.9 Qualified Code(s): E66.01 - Morbid (severe) obesity due to excess calories; Z68.42 - Body mass index [BMI] 45.0-49.9, adult Cholelithiasis Qualifiers: Cholelithiasis location: gallbladder Cholecystitis presence: without cholecystitis Biliary obstruction: without biliary obstruction Qualified Code(s): K80.20 - Calculus of gallbladder without cholecystitis without obstruction Disposition: Admitted As Inpatient Condition on Discharge: Good Referrals: Taz Patton MD [Primary Care Provider] - - Critical Care Critical Care Time: No Attestation: On 09/29/20, the high probability of a clinically significant, sudden or life threatening deterioration of the following system(s) required my full and direct attention, intervention and personal management. The time I documented below is in addition to time spent performing reported procedures but includes the following listed in this critical care notation. Medical Decision Making - Medical Records Medical records reviewed: Yes: I reviewed the patient's medical records. - Eliceo Inquiry Pt receiving controlled substance: No Vital Signs: 09/29/20 23:50 09/30/20 00:25 09/30/20 01:01 Temperature 97.7 F Temperature Source Oral Pulse Rate 73 81 Pulse Rate [Right Brachial] 81 Respiratory Rate 16 Blood Pressure 137/75 129/56 L Blood Pressure [Right Arm] 130/82 Blood Pressure Mean [Right Arm] 98 Blood Pressure Source [Right Arm] Automatic Cuff Blood Pressure Position [Right Arm] Sitting 02 Sat by Pulse Oximetry 98 95 99 Oxygen Delivery Method Room Air 09/30/20 01:29 09/30/20 01:31 Temperature Temperature Source Pulse Rate 71 65 Pulse Rate [Right Brachial] Respiratory Rate Blood Pressure 132/72 130/56 L Blood Pressure [Right Arm] Blood Pressure Mean [Right Arm] Blood Pressure Source [Right Arm] Blood Pressure Position [Right Arm] 02 Sat by Pulse Oximetry 100 96 Oxygen Delivery Method - Lab Data Lab results reviewed: Yes: I reviewed the patient's lab results. Lab Results 09/30/20 00:21: POC Glucose 206 H 09/30/20 00:28: WBC 18.9 H, RBC 4.69, Hgb 13.0 L, Hct 38.5 L, MCV 82.1, MCH 27.6, MCHC 33.7, RDW 13.9, Plt Count 317, MPV 8.0, Neut % (Auto) 84.5 H, Lymph % (Auto) 10.0, [place] % (Auto) 3.6, Eos % (Auto) 1.3, Baso % (Auto) 0.6, Neut # (Auto) 16.0 H, Lymph # (Auto) 1.9, [place] # (Auto) 0.7, Eos # (Auto) 0.3, Baso # (Auto) 0.1, Total Counted 100, Neutrophils % (Manual) 87 H, Lymphocytes % (Manual) 10, Monocytes % (Manual) 2, Basophils % (Manual) 1.0, Platelet Estimate Normal, RBC Morphology Normal, ESR 69 H 09/30/20 00:28: Sodium 143, Potassium 5.1, Chloride 103, Carbon Dioxide 25, Anion Gap 20.1 H, BUN 44 H, Creatinine 3.30 H, Estimated Creat Clear 26, Estimated GFR 19 L*, Est GFR ( Amer) 23 L, Glucose 220 H, Calcium 9.6, Total Bilirubin 0.5, AST 17, ALT 19, Alkaline Phosphatase 102, C-Reactive Protein 21.9 H, Total Protein 8.6 H, Albumin 4.8, Globulin 3.8 H, Albumin/Globulin Ratio 1.3, Amylase 69, Lipase 237, Procalcitonin 0.163 Result diagrams: 09/30/20 00:28 09/30/20 00:28 Orders (Tests/Meds): ED MEDICATIONS Generic Name Dose Route Start Last Admin Trade Name Freq PRN Reason Stop Dose Admin Sodium Chloride 1,000 mls @ 999 mls/hr 09/30/20 00:30 09/30/20 00:23 Sod Chlor 0.9% 1000ml Bag IV 09/30/20 01:30 999 mls/hr .Q1H1M GREGORY Administration Sodium Chloride 1,000 mls @ 999 mls/hr 09/30/20 01:45 Sod Chlor 0.9% 1000ml Bag IV 09/30/20 02:45 .Q1H1M GREGORY Discontinued Medications Generic Name Dose Route Start Last Admin Trade N
[2020-09-30 00:36] LABS: MANUAL DIFFERENTIAL MANUAL DIFFERENTIAL (MANUAL DIFF)
[2020-09-30 00:57] LABS: Alanine Aminotransferase 19 U/L (12-78); Albumin Level 4.8 g/dl (3.5-5.0); Albumin/Globulin Ratio 1.3 (1.1-1.8); Alkaline Phosphatase 102 U/L (38-126); Amylase 69 U/L (30-110); Anion Gap 20.1 mEq/L (5-15); Aspartate Amino Transferase 17 U/L (17-59); Bilirubin,Total 0.5 mg/dl (0.2-1.3); Blood Urea Nitrogen 44 mg/dl (9-20); Calcium 9.6 mg/dl (8.4-10.2); Carbon Dioxide 25 mmol/L (22.0-30.0); Chloride 103 mmol/L (98-107); Creatinine Clearance Estimated 26 mL/min (50-200); Estimated Glomerular Filt Rate 19 ml/min (>60); GFR (African American) 23 ML/MIN (>60); Globulin 3.8 g/dL (1.3-3.2); Glucose 220 mg/dl (74-100); Lipase 237 U/L (23-300); Potassium 5.1 mmoL/L (3.5-5.1); Sodium 143 mmol/L (136-145); Total Protein,Serum 8.6 g/dl (6.3-8.2)
[2020-09-30 01:03] LABS: C-Reactive Protein 21.9 mg/L (0-4)
[2020-09-30 01:06] LABS: Erythrocyte Sedimentation Rate 69 mm/hr (0-20)
[2020-09-30 01:16] LABS: Procalcitonin 0.163 ng/mL (0.0-2.0)
--- NOTE | 2020-09-30 01:20 | PC.NURSE ---
GFR of 18, ct changed to non contrast
[2020-09-30 01:30] LABS: Lymphocytes % 10 % (10-50); Monocytes % 2 % (2-9); Neutrophils % 87 % (42-76); Platelet Estimate Normal; RBC Morphology Normal; Total Cells Counted 100
[2020-09-30 02:25] LABS: Coronavirus 19, PCR Not Detected (NotDetected); Influenza A, PCR Not Detected (NotDetected); Influenza B, PCR Not Detected (NotDetected)
--- NOTE | 2020-09-30 02:30 | PC.NURSE ---
Dr Stevenson speaking with Dr Love for admission
--- NOTE | 2020-09-30 03:18 | PC.NURSE ---
Report given to SONY Cornejo at this time
--- NOTE | 2020-09-30 03:31 | PC.NURSE ---
PT ARRIVED TO FLOOR VIA W/C FROM ED W/STAFF AT 0327
--- NOTE | 2020-09-30 04:39 | PC.NURSE ---
Patient was admitted from the ED this shift. He is alert and oriented x4. Patient had no complaints of N/V or pain when arriving to unit. Patient abdomen is soft, round, and tender. Patient has IV fluids infusing at 100 ml/hr. Vital signs are stable, call light within reach, will continue to monitor.
[2020-09-30 05:29] LABS: POC Glucose,Bedside 141 (70-110)
[2020-09-30 06:27] LABS: Basophils # 0.1 K/mm3 (0-0.2); Basophils % 0.4 % (0.1-2.0); Eosinophils # 0.1 K/mm3 (0.0-0.4); Eosinophils % 0.4 % (0.1-12.0); Hemoglobin 11.9 g/dL (14.1-18.0); Lymphocytes # 1.3 K/mm3 (0.7-4.5); Lymphocytes % 8.7 % (10-50); Mean Corpuscular HGB Conc 33.1 g/dL (31.8-35.4); Mean Corpuscular Hemoglobin 27.2 pg (27.0-31.2); Mean Corpuscular Volume 82.1 fl (80-94); Mean Platelet Volume 7.4 fl (7.4-10.4); Monocytes # 0.6 K/mm3 (0.1-1.0); Monocytes % 4.1 % (1.7-9.3); Neutrophils # 12.9 K/mm3 (1.8-7.8); Neutrophils % 86.4 % (37.0-80.0); Platelet Count 267 K/mm3 (142-424); Red Blood Count 4.39 M/mm3 (4.60-6.20); Red Cell Distribution Width 13.9 % (11.5-17.5); White Blood Count 14.9 K/mm3 (4.8-10.8)
[2020-09-30 06:31] LABS: Chloride 108 mmol/L (98-107)
[2020-09-30 06:32] LABS: Sodium 142 mmol/L (136-145)
[2020-09-30 06:34] LABS: Blood Urea Nitrogen 44 mg/dl (9-20); Creatinine Clearance Estimated 28 mL/min (50-200); Estimated Glomerular Filt Rate 21 ml/min (>60); GFR (African American) 25 ML/MIN (>60)
[2020-09-30 06:35] LABS: Calcium 8.9 mg/dl (8.4-10.2); Carbon Dioxide 23 mmol/L (22.0-30.0); Chol/HDL Ratio 5.4 (1-3.5); Cholesterol 118 mg/dl (140-200); Glucose 149 mg/dl (74-100); HDL Cholesterol 22 mg/dl (40-60); Magnesium 1.8 mg/dl (1.6-2.3); Triglycerides 148 mg/dl (30-150); VLDL Cholesterol 30 mg/dL (0-40)
[2020-09-30 07:17] LABS: Anion Gap 16.8 mEq/L (5-15); Potassium 5.8 mmoL/L (3.5-5.1)
--- NOTE | 2020-09-30 08:00 | US_ITS ---
PROCEDURE: US GALLBLADDER CLINICAL INDICATION: abd pain/abn ct scan Abdominal pain COMPARISON: CT CT ABDOMEN PELVIS WO CON from 09/30/2020 FINDINGS: Pancreas: No obvious pancreatic mass. The pancreas is not well delineated due to overlying bowel gas and patient's body habitus Liver: Unremarkable. There is appropriate direction of blood flow within a non dilated portal vein. Right kidney: There is moderate right-sided hydronephrosis. Milk of calcium present in the right renal collecting system. No perinephric fluid collection. Gallbladder: Multiple gallstones are present. No gallbladder wall thickening or pericholecystic fluid. Common bile duct is normal at 3 mm. IMPRESSION: 1. Cholelithiasis. No gallbladder wall thickening or pericholecystic fluid. Common bile duct normal at 3 mm. 2. Moderate right-sided hydronephrosis with layering echogenic material within the renal pelvis and calyces consistent with milk of calcium. Dictated by: Cecilio Mcdaniels MD 09/30/2020 14:24 Cecilio Mcdaniels MD in [facility] 09/30/2020 14:24
--- NOTE | 2020-09-30 08:25 | HMH.HP ---
*Admission Date: 09/30/20 <Phuong Dwyer 09/30/20 08:37> *Chief complaint: abdominal pain <Phuong Dwyer 09/30/20 08:37> *History of present illness: Mr. Mendez is a 60-year-old male with a history of bilateral kidney stones, cholelithiasis, hypertension, type 2 diabetes, CHF, and sleep apnea who presented to the emergency department last night with abdominal pain. He states he began having a stomachache approximately 1 week ago. He thought maybe he had a virus and was feeling better yesterday. He states he had no pain until he ate [employer] last evening. He then began having bilateral lower upper quadrant abdominal pain, nausea, and vomiting. He states he did have a small bowel movement yesterday but has not had 1 today. He vomited numerous times and therefore presented to the emergency room. CT in the ER showed a possible early small bowel obstruction, moderate to severe bilateral hydronephrosis with large bilateral UPJ stones, cholelithiasis without evidence of cholecystitis, and small volume reactive ascites in the pelvis. He was admitted for further evaluation and treatment. This a.m. he states he feels a little bit better. He has not had any vomiting since he got to the floor. He continues with abdominal pain that comes and goes. <Phuong Dwyer 09/30/20 08:37> [facility] History Medical History: Reports:: Cardiomyopathy, Congestive Heart Failure, Hyperlipidemia, Hypertension, Kidney Stones, Myocardial Infarction (01/22/20) Denies:: Cancer, Diabetes Mellitus Type 1, Diabetes Mellitus Type 2, MRSA <Phuong Dwyer 09/30/20 08:37> *Have you ever received a pneumonia vaccine?: No <Phuong Dwyer 09/30/20 08:37> *Have you received a flu vaccine this season?: No <Phuong Dwyer 09/30/20 08:37> Other Medical History: Reports: Other <Phuong Dwyer 09/30/20 08:37> Laterality Cases: Bilateral: Tonsillectomy <Phuong Dwyer 09/30/20 08:37> Other Surgeries: Yes: Appendectomy, Cardiac Catheterization, Other <Phuong Dwyer 09/30/20 08:37> Amputation: No <Phuong Dwyer 21 08:37> Fractures: No <Phuong Dwyer 09/30/20 08:37> - *Social History Smoking Status: Never smoker <ReymundoPhuong 09/30/20 08:37> Alcohol Intake: never <SerafinmanoloPhuong 09/30/20 08:37> Alcohol Intake Frequency:: holidays/special occasions only <ReymundoPhuong 09/30/20 08:37> Substance Use Type: denies use <ReymundoPhuong 09/30/20 08:37> *Occupational Status:: retired <ReymundoPhuong 09/30/20 08:37> Housing: house <ReymundoPhuong 09/30/20 08:37> Household Members: spouse <ReymundoPhuong 09/30/20 08:37> *Travel in the last 8 weeks: Inside the [facility] <Phuong Dwyer 09/30/20 08:37> Family Hx:: Asthma, Cancer, Heart Attack, Hyperlipidemia, Hypertension, Stroke <ReymundoPhuong 09/30/20 08:37> Review of Systems - Constitutional Reports excessive sweating, Reports fatigue, Denies weakness <ReymundoPhuong 09/30/20 08:37> - Eyes Denies blurry vision, Denies double vision <ReymundoPhuong 09/30/20 08:37> - ENT Reports nasal congestion, Denies sore throat <ReymundoPhuong 09/30/20 08:37> - *Cardiovascular Denies chest pain, Denies shortness of breath <ReymundoPhuong 09/30/20 08:37> - *Respiratory Denies cough, Denies shortness of breath <ReymundoPhuong 09/30/20 08:37> - *Gastrointestinal Reports abdominal pain, Reports nausea, Reports vomiting, Denies constipation, Denies loose stools <ReymundoPhuong 09/30/20 08:37> - *Genitourinary Denies difficulty urinating, Denies painful urination <Phuong Dwyer 09/30/20 08:37> - *Musculoskeletal Denies joint pain, Denies back pain <Phuong Dwyer 09/30/20 08:37> - *Neurologic Reports dizziness, Denies headache(s), Denies seizure-like activity <Phuong Dwyer - 09/30/20 08:37> Meds Home Medications Medication Instructions Recorded Confirmed Type Metformin HCl [Metformin HCl ER] 1,000 mg PO DAILY 01/22/20 09/30/20 History loratadine 10 mg tabl
[2020-09-30 08:35] LABS: Microscopic, Urine URINE MICROSCOPIC (MICROSCOPIC)
[2020-09-30 08:36] LABS: Appearance,Urine CLEAR (Clear); Bilirubin,Urine Negative (Negative); Blood, Urine Negative (Negative); Color,Urine YELLOW (Yellow); Glucose,Urine (UA) Negative (Negative); Ketones,Urine Negative (Negative); Leukocyte Esterase,Urine TRACE (Negative); Nitrate,Urine Negative (Negative); PH,Urine 5.5 (5.0-8.5); Protein,Urine Negative (Negative); Urobilinogen,Urine 0.2 EU/dl (0.2)
--- NOTE | 2020-09-30 08:44 | HMH.PHAVTE ---
[facility] Pharm[facility] VTE Monitoring - Patient Demographics Admission date: 09/30/20 Report Date: 09/30/20 Time: 08:45 Allergies/Adverse Reactions: Patient Allergies No Known Allergies Allergy (Verified 09/30/20 00:10) Height: 1.83 m Weight: 149.884 kg Patient Problems: Current Active Problems SBO (small bowel obstruction) (Acute) Cholelithiasis (Acute) DAVID (acute kidney injury) (Acute) Calculus of kidney (Acute) CAD (coronary artery disease) (Chronic) Congestive heart failure (Chronic) Obesity (Chronic) Hyperlipidemia associated with type 2 diabetes mellitus (Acute) HTN (hypertension) (Chronic) HLD (hyperlipidemia) (Chronic) Morbid obesity (Chronic) DM type 2 (diabetes mellitus, type 2) (Chronic) FIDELINA (obstructive sleep apnea) (Chronic) - VTE Risk Labs: VTE Related Lab Results Hgb 11.9 g/dL (14.1-18.0) L 09/30/20 05:33 Hct 36.0 % (42.0-52.0) L 09/30/20 05:33 Plt Count 267 K/mm3 (142-424) 09/30/20 05:33 BUN 44 mg/dl (9-20) H 09/30/20 05:33 Creatinine 3.10 mg/dl (0.66-1.25) H 09/30/20 05:33 Estimated Creat Clear 28 mL/min (50-200) 09/30/20 05:33 Was VTE Risk Assessment Performed: Yes VTE Score: 4 VTE Risk Level: Low Risk Clinical Trial Participant: No - Prophylaxis VTE Prophylaxis Ordered?: Yes Types of VTE Prophylaxis: TEDS Knee High
--- NOTE | 2020-09-30 09:28 | HMH.PHAINT ---
home medication list clarified using list from [facility]
[2020-09-30 11:38] LABS: POC Glucose,Bedside 158 (70-110)
--- NOTE | 2020-09-30 15:14 | HMH.PHACONS ---
- Pharmacy Consult Date: 09/30/20 Time: 15:14 Referring provider: AUTUMN Reason for Consult:: GENTAMICIN DOSING Allergies and ADEs:: Allergies Allergy/AdvReac Type Severity Reaction Status Date / Time No Known Allergies Allergy Verified 09/30/20 00:10 Home Medications:: Home Medications Medication Instructions Recorded Confirmed Type Metformin HCl [Metformin HCl ER] 1,000 mg PO DAILY 01/22/20 09/30/20 History loratadine 10 mg tablet 10 mg PO DAILY tab 03/04/20 09/30/20 History montelukast 10 mg tablet 10 mg PO DAILY tab 03/04/20 09/30/20 History Aspirin [Low Dose Aspirin EC] 81 mg PO DAILY 09/30/20 09/30/20 History Atorvastatin Calcium [Lipitor 80mg 80 mg PO HS 09/30/20 09/30/20 History Tablet*] Furosemide [Furosemide 40MG tAB*] 40 mg PO BID 09/30/20 09/30/20 History Metoprolol Succinate [Metoprolol 25 mg PO DAILY 09/30/20 09/30/20 History Succinate 25mg Tablet*] Spironolactone [Spironolactone 25 mg PO BID 09/30/20 09/30/20 History 25mg Tablet] lisinopriL [Prinivil 20mg Tablet] 20 mg PO DAILY 09/30/20 09/30/20 History Height: 1.83 m Weight: 150 kg Laboratory Results:: Laboratory Results - last 24 hr 09/30/20 00:21: POC Glucose 206 H 09/30/20 00:28: WBC 18.9 H, RBC 4.69, Hgb 13.0 L, Hct 38.5 L, MCV 82.1, MCH 27.6, MCHC 33.7, RDW 13.9, Plt Count 317, MPV 8.0, Neut % (Auto) 84.5 H, Lymph % (Auto) 10.0, [place]urry % (Auto) 3.6, Eos % (Auto) 1.3, Baso % (Auto) 0.6, Neut # (Auto) 16.0 H, Lymph # (Auto) 1.9, [place] # (Auto) 0.7, Eos # (Auto) 0.3, Baso # (Auto) 0.1, Total Counted 100, Neutrophils % (Manual) 87 H, Lymphocytes % (Manual) 10, Monocytes % (Manual) 2, Basophils % (Manual) 1.0, Platelet Estimate Normal, RBC Morphology Normal, ESR 69 H 09/30/20 00:28: Sodium 143, Potassium 5.1, Chloride 103, Carbon Dioxide 25, Anion Gap 20.1 H, BUN 44 H, Creatinine 3.30 H, Estimated Creat Clear 26, Estimated GFR 19 L*, Est GFR ( Amer) 23 L, Glucose 220 H, Calcium 9.6, Total Bilirubin 0.5, AST 17, ALT 19, Alkaline Phosphatase 102, C-Reactive Protein 21.9 H, Total Protein 8.6 H, Albumin 4.8, Globulin 3.8 H, Albumin/Globulin Ratio 1.3, Amylase 69, Lipase 237, Procalcitonin 0.163 09/30/20 02:22: SARS-CoV-2 (PCR) Not detected, Influenza A Untype (PCR) Not detected, Influenza Type B (PCR) Not detected 09/30/20 05:12: POC Glucose 141 H 09/30/20 05:33: WBC 14.9 H, RBC 4.39 L, Hgb 11.9 L, Hct 36.0 L, MCV 82.1, MCH 27.2, MCHC 33.1, RDW 13.9, Plt Count 267, MPV 7.4, Neut % (Auto) 86.4 H, Lymph % (Auto) 8.7 L, [place] % (Auto) 4.1, Eos % (Auto) 0.4, Baso % (Auto) 0.4, Neut # (Auto) 12.9 H, Lymph # (Auto) 1.3, [place] # (Auto) 0.6, Eos # (Auto) 0.1, Baso # (Auto) 0.1 09/30/20 05:33: Sodium 142, Potassium 5.8 H, Chloride 108 H, Carbon Dioxide 23, Anion Gap 16.8 H, BUN 44 H, Creatinine 3.10 H, Estimated Creat Clear 28, Estimated GFR 21 L, Est GFR ( Amer) 25 L, Glucose 149 H D, Calcium 8.9, Magnesium 1.8, Triglycerides 148, Cholesterol 118 L, LDL Cholesterol Direct 64.00 L, VLDL Cholesterol 30, HDL Cholesterol 22 L, Cholesterol/HDL Ratio 5.4 H 09/30/20 08:30: Urine Color Yellow, Urine Appearance Clear, Urine pH 5.5, Ur Specific Britton 1.020, Urine Protein Negative, Urine Glucose (UA) Negative, Urine Ketones Negative, Urine Blood Negative, Urine Nitrate Negative, Urine Bilirubin Negative, Urine Urobilinogen 0.2, Ur Leukocyte Esterase Trace, Urine RBC None, Urine WBC 3-5, Ur Squamous Epith Cells 3-5, Urine Bacteria None 09/30/20 11:16: POC Glucose 158 H Medical History: Reports:: Cardiomyopathy, Congestive Heart Failure, Hyperlipidemia, Hypertension, Kidney Stones, Myocardial Infarction (01/22/20) Denies:: Cancer, Diabetes Mellitus Type 1, Diabetes Mellitus Type 2, MRSA Assessment and Plan (1) DAVID (acute kidney injury) Status: Acute Category: Medical Code(s): N17.9 - Acute kidney failure, unspecified (2) Calculus of kidney Status: Acute Category: Medical Code(s): N20.0 - Calculus of kidney (3) Cholelithiasis Status: Acute Qual
[2020-09-30 17:14] LABS: POC Glucose,Bedside 131 (70-110)
--- NOTE | 2020-09-30 19:59 | PC.NURSE ---
Pt had x1 episode of yellow and green emesis this shift. 200 mL in total. Some undigested whole food in there as well
[2020-10-01 04:00] VITALS: BP 138/87; PULSE 68; RESP 18; TEMP 36.6; O2SAT 96
[2020-10-01 05:20] VITALS: BMI 45.6
[2020-10-01 05:50] LABS: POC Glucose,Bedside 159 (70-110)
[2020-10-01 05:54] LABS: POC Glucose,Bedside 152 (70-110)
[2020-10-01 06:49] LABS: Basophils # 0.1 K/mm3 (0-0.2); Basophils % 0.4 % (0.1-2.0); Eosinophils # 0.2 K/mm3 (0.0-0.4); Eosinophils % 1.4 % (0.1-12.0); Hematocrit 35.9 % (42.0-52.0); Lymphocytes # 1.2 K/mm3 (0.7-4.5); Lymphocytes % 8.2 % (10-50); Mean Corpuscular HGB Conc 33.3 g/dL (31.8-35.4); Mean Corpuscular Hemoglobin 27.5 pg (27.0-31.2); Mean Corpuscular Volume 82.5 fl (80-94); Mean Platelet Volume 7.2 fl (7.4-10.4); Monocytes # 0.8 K/mm3 (0.1-1.0); Monocytes % 5.4 % (1.7-9.3); Neutrophils # 11.8 K/mm3 (1.8-7.8); Neutrophils % 84.5 % (37.0-80.0); Platelet Count 269 K/mm3 (142-424); Red Blood Count 4.36 M/mm3 (4.60-6.20); Red Cell Distribution Width 14.1 % (11.5-17.5)
[2020-10-01 06:52] LABS: Chloride 109 mmol/L (98-107); Potassium 5.5 mmoL/L (3.5-5.1); Sodium 140 mmol/L (136-145)
[2020-10-01 06:54] LABS: Blood Urea Nitrogen 41 mg/dl (9-20); Creatinine Clearance Estimated 29 mL/min (50-200); Estimated Glomerular Filt Rate 21 ml/min (>60); GFR (African American) 26 ML/MIN (>60)
[2020-10-01 06:55] LABS: Alanine Aminotransferase 15 U/L (12-78); Albumin Level 4.1 g/dl (3.5-5.0); Albumin/Globulin Ratio 1.3 (1.1-1.8); Alkaline Phosphatase 88 U/L (38-126); Anion Gap 15.5 mEq/L (5-15); Aspartate Amino Transferase 17 U/L (17-59); Bilirubin,Total 0.7 mg/dl (0.2-1.3); Calcium 8.6 mg/dl (8.4-10.2); Carbon Dioxide 21 mmol/L (22.0-30.0); Globulin 3.2 g/dL (1.3-3.2); Glucose 163 mg/dl (74-100); Total Protein,Serum 7.3 g/dl (6.3-8.2)
--- NOTE | 2020-10-01 07:39 | PC.NURSE ---
Patient is alert and oriented x4. Patient has rested on and off this shift. He had a emesis episode at approximately 0500 with 400 out. MD was called due to zofran not able to be given. Patient has had some intermitting pain throughout the night. Patient has NS @ 100 infusing in his RAC. Vital signs are stable, call light within reach, will continue to monitor.
[2020-10-01 08:00] VITALS: BP 115/80; PULSE 63; RESP 17; TEMP 37.1; O2SAT 98
--- NOTE | 2020-10-01 08:56 | XR_ITS ---
PROCEDURE: XR ACUTE ABDOMEN SERIES CLINICAL INDICATION: sbo COMPARISON: CR XR CHEST 2V from 01/22/[address] ABDOMEN PELVIS WO CON from 09/30/2020 FINDINGS: Frontal view of the chest shows no acute finding. Upright and supine views of the abdomen shows no evidence of free air. There is layering calcific density along the lower aspect of both kidneys consistent with milk of calcium. Bilateral oval areas of calcification noted 1 to the right L3-L4 measuring 1.9 x 1.2 cm and 1 along the inferior aspect of the left L3 transverse process at 9 mm consistent with filum lateral ureteral calculi. Multiple right renal calculi are present measuring up to 10 mm.. No air-fluid levels are evident within the small bowel. Fluid-filled loops of small bowel as seen on the recent CT scan may not be identifiable Other findings:None. IMPRESSION: Bilateral proximal ureteral calculi with bilateral milk of calcium and right-sided renal calculi. No evidence of free air. No significant air-fluid levels apparent. Diffuse fluid-filled loops of small bowel may not be visible with plain radiography. Dictated by: Cecilio Mcdaniels MD 10/01/2020 10:38 Cecilio Mcdaniels MD in [place] 10/01/2020 10:38
--- NOTE | 2020-10-01 08:57 | HMH.ACPN2 ---
<Phuong Dwyer - Last Filed: 10/01/20 08:57> Internal Medicine - PN: Subj *Date: 10/01/20 *Time: 08:57 Interval history: Patient is feeling a little bit better today. He continues to have upper abdominal pain and now has developed some lower abdominal pain. He states he tried to have a bowel movement 3 times last night but was unable. He has had no vomiting but has had some nausea. He was able to rest better last night. Exam Vital signs and Labs for Last 24 Hours: Temp Pulse Resp BP Pulse Ox 98.8 F 63 17 115/80 98 10/01/20 08:00 10/01/20 08:00 10/01/20 08:00 10/01/20 08:00 10/01/20 08:00 Laboratory Results - last 24 hr 09/30/20 11:16: POC Glucose 158 H 09/30/20 17:08: POC Glucose 131 H 09/30/20 19:41: POC Glucose 152 H 10/01/20 05:40: POC Glucose 159 H 10/01/20 06:17: WBC 14.0 H, RBC 4.36 L, Hgb 12.0 L, Hct 35.9 L, MCV 82.5, MCH 27.5, MCHC 33.3, RDW 14.1, Plt Count 269, MPV 7.2 L, Neut % (Auto) 84.5 H, Lymph % (Auto) 8.2 L, [place] % (Auto) 5.4, Eos % (Auto) 1.4, Baso % (Auto) 0.4, Neut # (Auto) 11.8 H, Lymph # (Auto) 1.2, [place] # (Auto) 0.8, Eos # (Auto) 0.2, Baso # (Auto) 0.1 10/01/20 06:17: Sodium 140, Potassium 5.5 H, Chloride 109 H, Carbon Dioxide 21 L, Anion Gap 15.5 H, BUN 41 H, Creatinine 3.00 H, Estimated Creat Clear 29, Estimated GFR 21 L, Est GFR ( Amer) 26 L, Glucose 163 H, Calcium 8.6, Total Bilirubin 0.7, AST 17, ALT 15, Alkaline Phosphatase 88, Total Protein 7.3, Albumin 4.1 D, Globulin 3.2, Albumin/Globulin Ratio 1.3 I & O for Last 24 hours: Intake & Output 09/28/20 09/29/20 09/30/20 10/01/20 11:59 11:59 11:59 11:59 Intake Total 1999 2789 / 2789 Output Total 550 / 550 1150 / 1150 Balance 1450 / 1450 1639 / 1639 Weight 330 lb 7 oz 337 lb 3 oz - Constitutional no acute distress - *Routine Respiratory Exam Present: CTA bilaterally - *Routine Cardiovascular Exam Present: RRR - *Routine Abdominal Exam Present: soft, normoactive bowel sounds, tenderness (Diffusely tender to palpation but worse in the upper quadrants.) - *Routine Extremities Exam Absent: cyanosis, clubbing, edema - *Routine Skin Exam Present: warm. Absent: rash - *Routine Neurological Exam Present: alert, oriented X3 Assessment and Plan (1) DAVID (acute kidney injury) Status: Acute Category: Medical Code(s): N17.9 - Acute kidney failure, unspecified (2) Calculus of kidney Status: Acute Category: Medical Code(s): N20.0 - Calculus of kidney (3) Cholelithiasis Status: Acute Qualifiers: Cholelithiasis location: gallbladder Cholecystitis presence: without cholecystitis Biliary obstruction: without biliary obstruction Qualified Code(s): K80.20 - Calculus of gallbladder without cholecystitis without obstruction Category: Medical Code(s): K80.20 - Calculus of gallbladder without cholecystitis without obstruction (4) SBO (small bowel obstruction) Status: Acute Category: Medical Code(s): K56.609 - Unspecified intestinal obstruction, unspecified as to partial versus complete obstruction (5) Congestive heart failure Status: Chronic Qualifiers: Heart failure type: diastolic Heart failure chronicity: chronic Qualified Code(s): I50.32 - Chronic diastolic (congestive) heart failure Category: Medical Code(s): I50.9 - Heart failure, unspecified (6) DM type 2 (diabetes mellitus, type 2) Status: Chronic Qualifiers: 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 transplanted heart: [place] heart Associated
[2020-10-01 11:31] LABS: POC Glucose,Bedside 138 (70-110)
--- NOTE | 2020-10-01 14:54 | PC.NURSE ---
No acute changes. Pt has reported some abdominal discomfort/ bubbling in lower quads of abdomen. Pt denies need for pain medication. No c/o nausea thus far. Lungs CTA. Abdomen round, firm w/ active BS in all quads. No BM this shift, states he has felt as though he may need to go but has not been able to. Has ambulated independently in room. Is currently sitting up in chair w/ visitor @ bedside. No needs @ this time. Call kwan w/in reach.
[2020-10-01 16:00] VITALS: BP 161/53; PULSE 59; RESP 16; TEMP 36.4; O2SAT 95
[2020-10-01 16:18] LABS: POC Glucose,Bedside 109 (70-110)
--- NOTE | 2020-10-01 18:39 | PC.NURSE ---
Received call from stewardess supervisor, pt has been accepted @ [facility], pt will be going to [address] # to call report is [phone] Paged Dr Patton @ [phone] to make aware
--- NOTE | 2020-10-01 19:48 | PC.NURSE ---
173 - Report called to Jessy Mcnair [facility] 174 - [facility] made aware of transfer.
[2020-10-01 20:00] VITALS: BP 145/72; PULSE 63; RESP 16; TEMP 37.1; O2SAT 98
--- NOTE | 2020-10-04 15:47 | HMH.DCSUM ---
General - General Admission date:: 09/30/20 Discharge date: 10/01/20 HPI HPI: Mr. Mendez is a 60-year-old male with a history of bilateral kidney stones, cholelithiasis, hypertension, type 2 diabetes, CHF, and sleep apnea who presented to the emergency department last night with abdominal pain. He states he began having a stomachache approximately 1 week ago. He thought maybe he had a virus and was feeling better yesterday. He states he had no pain until he ate [employer] last evening. He then began having bilateral lower upper quadrant abdominal pain, nausea, and vomiting. He states he did have a small bowel movement yesterday but has not had 1 today. He vomited numerous times and therefore presented to the emergency room. CT in the ER showed a possible early small bowel obstruction, moderate to severe bilateral hydronephrosis with large bilateral UPJ stones, cholelithiasis without evidence of cholecystitis, and small volume reactive ascites in the pelvis. He was admitted for further evaluation and treatment. This a.m. he states he feels a little bit better. He has not had any vomiting since he got to the floor. He continues with abdominal pain that comes and goes. Hospital Course Hospital Course: His renal function was elevated much above his baseline. He was started on morphine, Zofran, and IV fluids. A gallbladder ultrasound was ordered. It showed cholelithiasis but no gallbladder wall thickening or pericholecystic fluid. It also showed moderate right-sided hydronephrosis with layering echogenic material within the renal pelvis and calyces consistent with milk of calcium. By 10/01/2020, the patient felt slightly better. He continued to have upper abdominal pain and had also developed some lower abdominal pain. He was still unable to have a bowel movement. His vomiting had subsided but he continued with nausea. His renal function remained elevated although his white blood cell count did improve slightly. An abdominal x-ray was ordered due to the findings of a possible small bowel obstruction on CT. The x-ray showed bilateral proximal ureteral calculi with bilateral milk of calcium and right-sided renal calculi. There was no evidence of free air or significant air-fluid levels apparent. Dr. Sarkar was unavailable for consultation. Dr. Patton spoke with Dr. Whyte who recommended the patient be transferred to [place] for further urologic evaluation. Arrangements were made and the patient was transferred. Objective Vital signs: Temp Pulse Resp BP Pulse Ox 98.7 F 63 16 145/72 H 98 10/01/20 20:00 10/01/20 20:00 10/01/20 20:00 10/01/20 20:00 10/01/20 20:00 Narrative: - Constitutional no acute distress - *Routine Respiratory Exam Present: CTA bilaterally - *Routine Cardiovascular Exam Present: RRR - *Routine Abdominal Exam Present: soft, normoactive bowel sounds, tenderness (Diffusely tender to palpation but worse in the upper quadrants.) - *Routine Extremities Exam Absent: cyanosis, clubbing, edema - *Routine Skin Exam Present: warm. Absent: rash - *Routine Neurological Exam Present: alert, oriented X3 Results Labs on day of discharge: Preliminary micro results at discharge 09/30/20 15:25 Blood Culture - Preliminary Blood NO GROWTH AFTER 48 HOURS 09/30/20 15:25 Blood Culture - Preliminary Blood NO GROWTH AFTER 48 HOURS DS: Diagnosis - Discharge Diagnosis (1) DAIVD (acute kidney injury) Status: Acute (2) Calculus of kidney Status: Acute (3) Cholelithiasis Status: Acute (4) SBO (small bowel obstruction) Status: Acute (5) Congestive heart failure Status: Chronic (6) DM type 2 (diabetes mellitus, type 2) Status: Chronic (7) CAD (coronary artery disease) Status: Chronic (8) HLD (hyperlipidemia) Status: Chronic (9) HTN (hypertension) Status: Chronic (10) Morbid obesity Status: Chronic (11) FIDELINA (o
--- NOTE | 2020-11-12 06:57 | PC.NURSE ---
Records sent to [place]
== END 2020-10-01 21:39 | disposition short-term general hospital (02) | DRG 389 ==
LOC: ER 09-30 01:02 → 2ND 09-30 02:50
PROVIDERS: Admitting Provider Family Medicine; Emergency Provider Emergency Medicine; PCP Family Medicine; Visit Provider Family Medicine
DX: K56.609 Unspecified intestinal obstruction, unspecified as to partial versus complete obstruction (principal); I50.32 Chronic diastolic (congestive) heart failure; I42.9 Cardiomyopathy, unspecified; Z68.42 Body mass index [BMI] 45.0-49.9, adult; N17.9 Acute kidney failure, unspecified; N13.30 Unspecified hydronephrosis; Z20.822 Contact with and (suspected) exposure to COVID-19; I11.0 Hypertensive heart disease with heart failure; N20.0 Calculus of kidney; K80.20 Calculus of gallbladder without cholecystitis without obstruction; E66.01 Morbid (severe) obesity due to excess calories; G47.33 Obstructive sleep apnea (adult) (pediatric); E78.5 Hyperlipidemia, unspecified; I25.2 Old myocardial infarction; E11.69 Type 2 diabetes mellitus with other specified complication
CPT/HCPCS: 36415; 74021; 74176; 76705; 80048; 80053; 80061; 81001; 82150; 82962; 83690; 83735; 84145; 85007; 85025; 85651; 86140; 87040; 93005; 96365; 96366; 96375; 99284; J2405; U0003

== ENCOUNTER 2020-10-26 17:46 | Emergency (ER) | payer BC, SELFPAY ==
--- NOTE | 2020-10-26 18:01 | HMH.EDSKAF ---
ED Disposition Clinical Impression: Cellulitis Qualifiers: Site of cellulitis: trunk Site of cellulitis of trunk: abdominal wall Qualified Code(s): L03.311 - Cellulitis of abdominal wall Disposition: Home, Self-Care Condition on Discharge: Good Instructions: Cellulitis Additional Instructions: Keep your telemedicine follow-up appointment tomorrow morning as scheduled. Inform your doctor of your visit to the emergency department today and the medication that was prescribed to you today. Turn to the emergency department if you feel worse in any way and or develop a fever. Prescriptions: cephALEXin [Cephalexin 500mg Tab] 500 mg PO Q6H #28 tab Transmission Status: Sent to [facility] Referrals: Taz Patton MD [Primary Care Provider] - - Critical Care Critical Care Time: No Attestation: On 10/26/20, the high probability of a clinically significant, sudden or life threatening deterioration of the following system(s) required my full and direct attention, intervention and personal management. The time I documented below is in addition to time spent performing reported procedures but includes the following listed in this critical care notation. Medical Decision Making - Medical Records Medical records reviewed: Yes: I reviewed the patient's medical records. - Eliceo Inquiry Pt receiving controlled substance: No Vital Signs: 10/26/20 18:07 Temperature 98.7 F Temperature Source Oral Pulse Rate [Right Radial] 69 Respiratory Rate 18 Blood Pressure [Right Arm] 129/75 Blood Pressure Mean [Right Arm] 93 Blood Pressure Source [Right Arm] Automatic Cuff Blood Pressure Position [Right Arm] Sitting 02 Sat by Pulse Oximetry 97 Oxygen Delivery Method Room Air Orders (Tests/Meds): ED MEDICATIONS Discontinued Medications Generic Name Dose Route Start Last Admin Trade Name Aria PRN Reason Stop Dose Admin Cefazolin Sodium 1 gm 10/26/20 18:08 10/26/20 18:26 Cefazolin 1gm Vial IM 10/26/20 18:09 1 gm ONCE ONE Administration Medical Decision Narrative: The patient presents to the emergency department complaining of drainage and erythema surrounding his abdominal surgical site. On physical examination there is some serosanguineous drainage with some mild surrounding erythema. There is no evidence of abscess. The patient does not have a fever. He denies any pain. I feel that the patient has some mild cellulitis without abscess formation. The patient will be discharged after receiving Ancef in the emergency department and I will write him a prescription for Keflex to be started tomorrow. The patient states that he has a telemedicine follow-up appointment with his surgeon tomorrow at about 9 AM. I told him to keep that appointment and to tell him about his visit to the emergency department today as well as the antibiotics I am prescribing him. Skin/Abscess/FB HPI - General Chief complaint: Skin/Abscess/Foreign Body Stated complaint: possible infection of surgical site Time Seen by Provider: 10/26/20 18:01 Mode of Arrival: Ambulatory Source of Information: Patient - History of Present Illness HPI narrative: Patient presents to the emergency department complaining of an infection of his surgical wound from approximately 1 week ago. He had a small bowel obstruction for which he under went celiotomy. The patient symptoms started today. Has some mild drainage but denies any pain. - Related Data Home Medications Medication Instructions Recorded Confirmed Metformin HCl [Metformin HCl ER] 1,000 mg PO DAILY 01/22/20 09/30/20 loratadine 10 mg tablet 10 mg PO DAILY tab 03/04/20 09/30/20 montelukast 10 mg tablet 10 mg PO DAILY tab 03/04/20 09/30/20 Aspirin [Low Dose Aspirin EC] 81 mg PO DAILY 09/30/20 09/30/20 Atorvastatin Calcium [Lipitor 80mg 80 mg PO HS 09/30/20 09/30/20 Tablet*] Furosemide [Furosemide 40MG tAB*] 40 mg PO BID 09/30/20 09/30/20 Metoprolol Succinate [Metoprolol
[2020-10-26 18:07] VITALS: BP 129/75; PULSE 69; RESP 18; TEMP 37.1; O2SAT 97; BMI 43.4
[2020-10-26 18:41] VITALS: BP 132/74; PULSE 79; RESP 16; TEMP 36.9; O2SAT 98
== END 2020-10-26 18:42 | disposition home or self-care (01) ==
LOC: UTC 17:50 → ER 17:58
PROVIDERS: Emergency Provider Emergency Medicine; PCP Family Medicine
DX: L03.311 Cellulitis of abdominal wall (principal); E11.9 Type 2 diabetes mellitus without complications; I50.9 Heart failure, unspecified; E78.5 Hyperlipidemia, unspecified; I10 Essential (primary) hypertension; I25.2 Old myocardial infarction; Z87.442 Personal history of urinary calculi; Z79.84 Long term (current) use of oral hypoglycemic drugs
CPT/HCPCS: 96372; 99281

== ENCOUNTER → 2020-11-10 14:38 | Outpatient (CLI) | payer BC, SELFPAY | PROVIDERS: PCP Family Medicine; Visit Provider Nurse Practitioner | DX: Z20.822 Contact with and (suspected) exposure to COVID-19 (principal) | CPT/HCPCS: C9803; U0003; U0005 ==

== ENCOUNTER → 2020-11-13 12:33 | Outpatient (CLI) | payer BC, SELFPAY ==
[2020-11-13 12:36] LABS: Microscopic, Urine URINE MICROSCOPIC (MICROSCOPIC)
[2020-11-13 13:03] LABS: Basophils # 0.1 K/mm3 (0-0.2); Basophils % 0.4 % (0.1-2.0); Eosinophils # 0.3 K/mm3 (0.0-0.4); Eosinophils % 2.2 % (0.1-12.0); Hematocrit 36.8 % (42.0-52.0); Hemoglobin 11.3 g/dL (14.1-18.0); Lymphocytes # 2.5 K/mm3 (0.7-4.5); Lymphocytes % 21.4 % (10-50); Mean Corpuscular HGB Conc 30.7 g/dL (31.8-35.4); Mean Corpuscular Hemoglobin 26.6 pg (27.0-31.2); Mean Corpuscular Volume 86.7 fl (80-94); Mean Platelet Volume 7.3 fl (7.4-10.4); Monocytes # 0.9 K/mm3 (0.1-1.0); Neutrophils # 7.9 K/mm3 (1.8-7.8); Neutrophils % 67.9 % (37.0-80.0); Platelet Count 253 K/mm3 (142-424); Red Blood Count 4.24 M/mm3 (4.60-6.20); Red Cell Distribution Width 14.7 % (11.5-17.5); White Blood Count 11.7 K/mm3 (4.8-10.8)
[2020-11-13 13:17] LABS: Appearance,Urine CLEAR (Clear); Blood, Urine 3+ (Negative); Color,Urine YELLOW (Yellow); Glucose,Urine (UA) Negative (Negative); Ketones,Urine Negative (Negative); Leukocyte Esterase,Urine 1+ (Negative); Nitrate,Urine POSITIVE (Negative); PH,Urine 5.5 (5.0-8.5); Protein,Urine 2+ (Negative); Specific Gravity, Urine 1.025 (1.005-1.030); Urobilinogen,Urine 0.2 EU/dl (0.2)
[2020-11-13 13:18] LABS: Bilirubin,Urine 1+ (Negative)
[2020-11-13 13:24] LABS: Creatinine,Urine Random 220 mg/dL (Not Estab.)
[2020-11-13 13:25] LABS: Bacteria,Urine 1+ /lpf
[2020-11-13 13:42] LABS: Albumin Level 3.9 g/dl (3.5-5.0); Chloride 103 mmol/L (98-107); Potassium 4.5 mmoL/L (3.5-5.1); Sodium 140 mmol/L (136-145)
[2020-11-13 13:45] LABS: Anion Gap 14.5 mEq/L (5-15); Blood Urea Nitrogen 22 mg/dl (9-20); Calcium 9.2 mg/dl (8.4-10.2); Carbon Dioxide 27 mmol/L (22.0-30.0); Estimated Glomerular Filt Rate 31 ml/min (>60); GFR (African American) 37 ML/MIN (>60); Glucose 111 mg/dl (74-100); Phosphorous 4.1 mg/dl (2.5-4.5)
== END ==
DX: I10 Essential (primary) hypertension (principal)
CPT/HCPCS: 36415; 80069; 81001; 82570; 84155; 85025; 87086

== ENCOUNTER 2021-04-27 12:17 | Emergency (ER) | payer BC, SELFPAY ==
[2021-04-27 13:47] VITALS: BP 137/92; PULSE 62; RESP 18; TEMP 36.6; O2SAT 96; BMI 43.4
--- NOTE | 2021-04-27 14:04 | HMH.EDUTC ---
[facility] Disposition Clinical Impression: Sinusitis Qualifiers: Sinusitis location: unspecified location Chronicity: acute Recurrence: non-recurrent Qualified Code(s): J01.90 - Acute sinusitis, unspecified Disposition: Home, Self-Care Condition on Discharge: Good Instructions: DI for Sinusitis Additional Instructions: Drink plenty of fluids. Take tylenol or ibuprofen for pain or fever. Take the medications as directed. Follow up with your regular doctor. GO TO THE ER FOR ANY WORSENING SYMPTOMS Don't start the oral steroids until tomorrow, since you had the shot here today. Prescriptions: Promethazine/Dextromethorphan [Promethazine-Dm Syrup] 5 ml PO Q6HP PRN #240 ml PRN Reason: Cough Transmission Status: Received by [facility] methylPREDNISolone [Medrol] 4 mg PO DIRECTED 6 Days #21 packet Transmission Status: Received by [facility] Azithromycin [Z-Demarcus 250mg Tab*] 250 mg PO UD DOSE PK #6 tab Transmission Status: [facility] Referrals: Taz Patton MD [Primary Care Provider] - Time of Disposition: 14:22 Medical Decision Making - Medical Records Medical records reviewed: No: I reviewed the patient's medical records. - Eliceo Inquiry Pt receiving controlled substance: No Vital Signs: 04/27/21 13:47 04/27/21 14:24 Temperature 98 F 98 F Temperature Source Oral Oral Pulse Rate 60 Pulse Rate [Left] 62 Respiratory Rate 18 18 Blood Pressure 137/90 Blood Pressure [Right Arm] 137/92 H Blood Pressure Mean [Right Arm] 107 Blood Pressure Source Automatic Cuff Blood Pressure Position Sitting 02 Sat by Pulse Oximetry 96 Oxygen Delivery Method Room Air - Lab Data Lab results reviewed: Yes: I reviewed the patient's lab results. Orders (Tests/Meds): ED MEDICATIONS Discontinued Medications Generic Name Dose Route Start Last Admin Trade Name Freq PRN Reason Stop Dose Admin Ceftriaxone Sodium 1 gm 04/27/21 14:10 04/27/21 14:19 Ceftriaxone 1gm Vial IM 04/27/21 14:11 1 gm ONCE ONE Administration Lidocaine HCl 0 ml 04/27/21 14:10 04/27/21 14:19 Lidocaine 1% 5ml Pf Vial IM 04/27/21 14:11 2 ml ONCE ONE Administration Methylprednisolone Sodium Succinate 125 mg 04/27/21 14:10 04/27/21 14:19 Methylprednisolone Sod Succ 125mg Vial IM 04/27/21 14:11 125 mg ONCE ONE Administration Medical Decision Narrative: He refused a covid-19 test today. [facility] HPI - General Stated complaint: left ear ache, sore thrpat, cough, congestion Time Seen by Provider: 04/27/21 14:04 Mode of Arrival: Ambulatory Source of Information: Patient Limitations: No Limitations Description of Symptoms (Recalled from Triage Doc. by RN): pt c/o sinus pressure/pain and bilateral ear aches with the L being the worst. HEENT Symptoms (Recalled from RN notes): Yes Resp Symptoms (Recalled from RN notes): No Skin Symptoms (Recalled from RN notes): No MS Symptoms (Recalled from RN notes): No Functional Status (Recalled from RN notes): wnl - History of Present Illness Provider Complaint: He started having sinus congestion and right ear pain for the past 1 week. - Related Data Home Medications Medication Instructions Recorded Confirmed montelukast 10 mg tablet 10 mg PO DAILY tab 03/04/20 11/11/20 Furosemide [Furosemide 40MG tAB*] 40 mg PO BID 09/30/20 11/11/20 lisinopriL [Prinivil 20mg Tablet] 20 mg PO DAILY 09/30/20 11/11/20 hydralazine 25 mg tablet 25 mg PO BID tab 11/11/20 11/11/20 metformin 500 mg tablet,extended 500 mg PO BID tab 11/11/20 11/11/20 release 24 hr Previous Rx's Medication Instructions Recorded aspirin 81 mg tablet,delayed See Rx Instructions .ROUTE 02/11/21 release .COMPLEX #30 tablet atorvastatin 80 mg tablet See Rx Instructions .ROUTE 03/17/21 .COMPLEX #30 tablet metoprolol succinate 25 mg See Rx Instructions .ROUTE 03/17/21 tablet,extended release 24 hr .COMPLEX #30 tablet Azithromycin [Z-
[2021-04-27 14:24] VITALS: BP 137/90; PULSE 60; RESP 18; TEMP 36.6; O2SAT 97
== END 2021-04-27 14:34 | disposition home or self-care (01) ==
PROVIDERS: Emergency Provider Nurse Practitioner Family; PCP Family Medicine
DX: J01.90 Acute sinusitis, unspecified (principal)
CPT/HCPCS: 96372; 99212; G0463; J0696

== ENCOUNTER 2021-09-25 12:01 | Emergency (ER) | payer BC, SELFPAY ==
[2021-09-25] VITALS (7 sets, daily range): BP systolic 158–184; BP diastolic 84–94; PULSE 57–78; RESP 16–20; TEMP 36.6–37.2; O2SAT 98–99; BMI 44.7
--- NOTE | 2021-09-25 12:36 | HMH.EDUTC ---
[facility] [place] Clinical Impression: Urination decrease Disposition: Still a Patient Condition on Discharge: Good Referrals: Taz Patton MD [Primary Care Provider] - Time of Disposition: 12:57 (sent to ed for eval) Medical Decision Making - Eliceo Inquiry Pt receiving controlled substance: No Vital Signs: 09/25/21 12:10 Temperature 98.2 F Temperature Source Oral Pulse Rate [Right Brachial] 60 Respiratory Rate 20 Blood Pressure [Right Arm] 175/93 H Blood Pressure Mean [Right Arm] 120 Blood Pressure Source [Right Arm] Automatic Cuff Blood Pressure Position [Right Arm] Sitting 02 Sat by Pulse Oximetry 98 Oxygen Delivery Method Room Air [facility] - General Chief complaint: Urgent [facility] Stated complaint: not urinated in 2 days Time Seen by Provider: 09/25/21 12:36 Mode of Arrival: Ambulatory Source of Information: Patient Limitations: No Limitations Description of Symptoms (Recalled from Triage Doc. by RN): PATIENT REPORTS HE HAS NOT URINATED SINCE MONDAY MORNING. C/O PAIN TO RIGHT FLANK AND LLQ. REPORTS NORMAL BM TODAY. REPORTS A HISTORY OF KIDNEY STONES AND A BOWEL RESECTION APPROX 1 YEAR AGO HEENT Symptoms (Recalled from RN notes): No Resp Symptoms (Recalled from RN notes): No Skin Symptoms (Recalled from RN notes): No MS Symptoms (Recalled from RN notes): No Functional Status (Recalled from RN notes): WNL - History of Present Illness Provider Complaint: 61 yr old male presents for harjeet low back pain, left lower quad pain,and unable to make urine for 2 days. pt states he was able to get 2 drops out this am. Pt states hx of kidney stones - Related Data Home Medications Medication Instructions Recorded Confirmed loratadine 10 mg tablet 10 mg PO DAILY tab 07/13/21 09/25/21 Aspirin [Low Dose Aspirin EC] 81 mg PO DAILY 09/25/21 09/25/21 Atorvastatin Calcium [Lipitor 80mg 80 mg PO DAILY 09/25/21 09/25/21 Tablet*] Metoprolol Succinate [Metoprolol 1 tab PO DAILY 09/25/21 09/25/21 Succinate 25mg Tablet*] Allergies Allergy/AdvReac Type Severity Reaction Status Date / Time No Known Allergies Allergy Verified 07/13/21 13:19 - Worker's Comp Is this a Worker's Comp case?: No [facility] History - Hepatitis A Screen Attestation statement:: This patient has been screened for Hepatitis A risk factors. I have reviewed the patient's past medical history: Yes Medical History: Reports:: Cardiomyopathy, Congestive Heart Failure, Diabetes Mellitus Type 2, Hyperlipidemia, Hypertension, Kidney Stones, Myocardial Infarction Denies:: Cancer, Diabetes Mellitus Type 1, MRSA Other Medical History: Reports: Other Laterality Cases: Bilateral: Tonsillectomy Other Surgeries: Yes: Appendectomy, Cardiac Catheterization, Colon Resection, Other Amputation: No Fractures: No - Social History Smoking Status: Never smoker Alcohol Intake: current Alcohol Intake Frequency:: holidays/special occasions only Substance Use Type: denies use Occupational Status: other Housing: house Household Members: spouse Family Hx:: Cancer, Coronary Artery Disease, Heart Attack, Stroke ROS Obtained: Yes Systems reviewed as appropriate & no additional complaints - Constitutional Constitutional: Reports system reviewed and no additional complaints, except as docu, Denies fever(s) - Eyes Eyes: Reports system reviewed and no additional complaints, except as docu, Denies dry eyes - ENT Ears, Nose, Mouth, and Throat: Reports system reviewed and no additional complaints, except as docu, Denies lip swelling - Cardiovascular Cardiovascular: Reports system reviewed and no additional complaints, except as docu, Denies chest pain - Respiratory Respiratory: Reports system reviewed and no additional complaints, except as docu, Denies chest congestion - Gastrointestinal Gastrointestingal: Reports: system reviewed and no additional complaints, except as docu. Denies: abdominal pain - Genitourinary Male Genitourinary: R
--- NOTE | 2021-09-25 12:50 | PC.NURSE ---
INSERTED [facility] CATH TO CHECK FOR RESIDUAL AT THIS TIME USING STERILE TECHNIQUE. NO URINE NOTED IN CATHETER TUBE. AFTER CATHETER WAS REMOVED, APPROX LESS THAN 1 CC OF RED, CLOUDY URINE NOTED IN TIP OF CATHETER.
--- NOTE | 2021-09-25 12:59 | PC.NURSE ---
PATIENT SENT TO ER PER Nathan LINARES APRN FOR FURTHER EVALUATION. REPORT GIVEN TO Denis GLEZ RN BY Nathan LINARES APRN
--- NOTE | 2021-09-25 13:13 | PC.NURSE ---
Karmen in room to obtain IV access
[2021-09-25 13:29] LABS: Basophils % 0.4 % (0.1-2.0); Eosinophils # 0.2 K/mm3 (0.0-0.4); Hematocrit 42.2 % (42.0-52.0); Hemoglobin 13.4 g/dL (14.1-18.0); Lymphocytes # 1.5 K/mm3 (0.7-4.5); Lymphocytes % 13.6 % (10-50); Mean Corpuscular HGB Conc 31.8 g/dL (31.8-35.4); Mean Corpuscular Hemoglobin 26.4 pg (27.0-31.2); Mean Corpuscular Volume 83.1 fl (80-94); Monocytes # 0.6 K/mm3 (0.1-1.0); Monocytes % 5.1 % (1.7-9.3); Neutrophils # 8.6 K/mm3 (1.8-7.8); Platelet Count 178 K/mm3 (142-424); Red Blood Count 5.08 M/mm3 (4.60-6.20); Red Cell Distribution Width 14.8 % (11.5-17.5); White Blood Count 10.9 K/mm3 (4.8-10.8)
--- NOTE | 2021-09-25 13:35 | PC.NURSE ---
bladder scanner with 0ml noted in bladder
[2021-09-25 13:36] LABS: Alanine Aminotransferase 16 U/L (12-78); Albumin Level 4.1 g/dl (3.5-5.0); Albumin/Globulin Ratio 1.2 (1.1-1.8); Alkaline Phosphatase 122 U/L (38-126); Anion Gap 15.7 mEq/L (5-15); Aspartate Amino Transferase 17 U/L (17-59); Blood Urea Nitrogen 53 mg/dl (9-20); Calcium 8.3 mg/dl (8.4-10.2); Carbon Dioxide 22 mmol/L (22.0-30.0); Chloride 104 mmol/L (98-107); Creatinine Clearance Estimated 10 mL/min (50-200); Estimated Glomerular Filt Rate 6 ml/min (>60); GFR (African American) 8 ML/MIN (>60); Globulin 3.3 g/dL (1.3-3.2); Glucose 118 mg/dl (74-100); Potassium 4.7 mmoL/L (3.5-5.1); Sodium 137 mmol/L (136-145); Total Protein,Serum 7.4 g/dl (6.3-8.2)
--- NOTE | 2021-09-25 13:39 | CT_ITS ---
PROCEDURE INFORMATION: Exam: CT Abdomen And Pelvis Without Contrast Exam date and time: 09/25/2021 1:42 PM Age: 61 years old Clinical indication: Abdominal pain; Flank; Other: Bilateral; Additional info: Flank pain TECHNIQUE: Imaging protocol: Computed tomography of the abdomen and pelvis without contrast. Radiation optimization: All CT scans at this facility use at least one of these dose optimization techniques: automated exposure control; mA and/or kV adjustment per patient size (includes targeted exams where dose is matched to clinical indication); or iterative reconstruction. COMPARISON: CT ABDOMEN PELVIS WO CON 09/30/2020 1:17 AM FINDINGS: Liver: Normal. No mass. Gallbladder and bile ducts: Cholelithiasis. Pancreas: Normal. No ductal dilation. Spleen: Normal. No splenomegaly. Adrenal glands: Normal. No mass. Kidneys and ureters: Bilateral perinephric stranding. Findings nonspecific and may reflect acute versus chronic inflammatory change. Marked bilateral hydronephrosis and hydroureter. Bilateral partially obstructing ureteral calculi. Right ureteral calculus present at the level of L4-L5. This measures 10 x 5 mm in maximum dimensions. Left ureteral calculus at the level of L3-L4 measuring 12 x 8 mm. Persistent regions of calcific sludge/milk of calcium again demonstrated layering in the dependent position of the right renal pelvis and lower pole calices as well as the left lower pole calyx. Two additional distal right ureteral calculi at the level of the pelvis measuring 6 x 5 mm in maximum dimensions. The more inferior calculus measures 10 x 9 mm in maximum dimensions (series 3, image number 99) . Stomach and bowel: Colonic diverticulosis. No evidence of diverticulitis. Appendix: No evidence of appendicitis. Intraperitoneal space: Previously demonstrated fat density mass in the mid abdomen is not present on the current study. Vasculature: Unremarkable. No abdominal aortic aneurysm. Lymph nodes: Unremarkable. No enlarged lymph nodes. Urinary bladder: Unremarkable as visualized. Reproductive: Unremarkable as visualized. Bones/joints: Unremarkable. No acute fracture. Soft tissues: Persistent fat filled inguinal hernia. This is increased in size. A 3.4 cm defect is now demonstrated. Small bilateral fat filled inguinal hernias. Other findings: Evidence of prior granulomatous disease. IMPRESSION: 1. Marked bilateral hydronephrosis and hydroureter. Demonstration of 10 x 5 mm partially obstructing right ureteral calculus at the level of L4-L5. Two additional right distal ureteral calculi measuring up to 10 mm in maximum dimensions at the level of the pelvis. 2. 12 x 8 mm left ureteral calculus at the level of L3-L4. 3. Please see above report for discussion of nonacute findings.
--- NOTE | 2021-09-25 13:45 | HMH.EDGENADL ---
ED Disposition Clinical Impression: Obstructive uropathy, Ureterolithiasis Acute renal failure Qualifiers: Acute renal failure type: unspecified Qualified Code(s): N17.9 - Acute kidney failure, unspecified Disposition: Xfer Short-Term Hosp Condition on Discharge: Serious Additional Instructions: Do not eat or drink anything. Go straight to [facility] for admission and treatment by urologist. Referrals: Taz Patton MD [Primary Care Provider] - Forms: Transfer Record - ED - Critical Care Critical Care Time: No Attestation: On 09/25/21, the high probability of a clinically significant, sudden or life threatening deterioration of the following system(s) required my full and direct attention, intervention and personal management. The time I documented below is in addition to time spent performing reported procedures but includes the following listed in this critical care notation. Medical Decision Making - Eliceo Inquiry Pt receiving controlled substance: No Vital Signs: 09/25/21 12:10 09/25/21 13:06 09/25/21 14:05 Temperature 98.2 F 98.9 F Temperature Source Oral Oral Pulse Rate 59 L Pulse Rate [Right Brachial] 60 59 L Respiratory Rate 20 16 16 Blood Pressure 184/90 H Blood Pressure [Right Arm] 175/93 H 158/94 H Blood Pressure Mean 121 Blood Pressure Mean [Right Arm] 120 115 Blood Pressure Source [Right Arm] Automatic Cuff Blood Pressure Position [Right Arm] Sitting Sitting 02 Sat by Pulse Oximetry 98 98 98 Oxygen Delivery Method Room Air Room Air Room Air 09/25/21 14:31 09/25/21 15:01 Temperature Temperature Source Pulse Rate 57 L 61 Pulse Rate [Right Brachial] Respiratory Rate 16 Blood Pressure 166/84 H 182/86 H Blood Pressure [Right Arm] Blood Pressure Mean 111 118 Blood Pressure Mean [Right Arm] Blood Pressure Source [Right Arm] Blood Pressure Position [Right Arm] 02 Sat by Pulse Oximetry 98 99 Oxygen Delivery Method Room Air Room Air - Lab Data Lab Results 09/25/21 13:20: WBC 10.9 H, RBC 5.08, Hgb 13.4 L, Hct 42.2, MCV 83.1, MCH 26.4 L, MCHC 31.8, RDW 14.8, Plt Count 178, MPV 8.0, Neut % (Auto) 79.0, Lymph % (Auto) 13.6, [place] % (Auto) 5.1, Eos % (Auto) 2.0, Baso % (Auto) 0.4, Neut # (Auto) 8.6 H, Lymph # (Auto) 1.5, [place] # (Auto) 0.6, Eos # (Auto) 0.2, Baso # (Auto) 0.0 09/25/21 13:20: Sodium 137, Potassium 4.7, Chloride 104, Carbon Dioxide 22, Anion Gap 15.7 H, BUN 53 H, Creatinine 8.50 H, Estimated Creat Clear 10, Estimated GFR 6 L*, Est GFR ( Amer) 8 L*, Glucose 118 H, Calcium 8.3 L, Total Bilirubin 1.0, AST 17, ALT 16, Alkaline Phosphatase 122, Total Protein 7.4, Albumin 4.1, Globulin 3.3 H, Albumin/Globulin Ratio 1.2 09/25/21 14:17: SARS-CoV-2 (PCR) Not detected, Influenza A Untype (PCR) Not detected, Influenza Type B (PCR) Not detected Result diagrams: 09/25/21 13:20 09/25/21 13:20 Orders (Tests/Meds): ORDERS Category Date Time Status Urinalysis and Microscopic Stat Lab 09/25/21 13:07 Ordered - CT Data CT Scan: Abdomen, Pelvis Time Received: 14:[address] Reviewed: Yes: I have viewed the radiologist's interpretation Findings Narrative: PROCEDURE INFORMATION: Exam: CT Abdomen And Pelvis Without Contrast Exam date and time: 09/25/2021 1:42 PM Age: 61 years old Clinical indication: Abdominal pain; Flank; Other: Bilateral; Additional info: Flank pain TECHNIQUE: Imaging protocol: Computed tomography of the abdomen and pelvis without contrast. Radiation optimization: All CT scans at this facility use at least one of these dose optimization techniques: automated exposure control; mA and/or kV adjustment per patient size (includes targeted exams where dose is matched to clinical indication); or iterative reconstruction. COMPARISON: CT ABDOMEN PELVIS WO CON 09/30/2020 1:17 AM FINDINGS: Liver: Normal. No mass. Gallbladder and bile ducts: Cholelithiasis. Pancreas: Normal. No ductal dilation.
[2021-09-25 14:37] LABS: Coronavirus 19, PCR Not Detected (NotDetected); Influenza A, PCR Not Detected (NotDetected); Influenza B, PCR Not Detected (NotDetected)
--- NOTE | 2021-09-25 14:41 | PC.NURSE ---
called [facility] transfer @ [id number] for transfer and to paged instructional technology specialist UROLOGY DR MOSQUERA
--- NOTE | 2021-09-25 15:12 | PC.NURSE ---
on the phone with urology from [facility]
--- NOTE | 2021-09-25 15:25 | PC.NURSE ---
speaking to accepting physician at [facility]
--- NOTE | 2021-09-25 15:47 | PC.NURSE ---
attempted to call report to [facility]. nurse unable to take report they will call back
--- NOTE | 2021-09-25 15:48 | PC.NURSE ---
pt is calling daughter to take him to [facility]
--- NOTE | 2021-09-25 15:52 | PC.NURSE ---
attempted mulitple times to fax facesheet to [facility], all no send finally took to registration to fax
--- NOTE | 2021-09-25 16:02 | PC.NURSE ---
report called to [facility]
== END 2021-09-25 16:28 | disposition short-term general hospital (02) ==
LOC: UTC 12:57 → ER 12:59
PROVIDERS: Emergency Provider Emergency Medicine; PCP Family Medicine
DX: R10.32 Left lower quadrant pain (principal); M54.50 Low back pain, unspecified; R33.9 Retention of urine, unspecified; R06.00 Dyspnea, unspecified; Z20.822 Contact with and (suspected) exposure to COVID-19; I11.0 Hypertensive heart disease with heart failure; I50.9 Heart failure, unspecified; N17.9 Acute kidney failure, unspecified; N13.9 Obstructive and reflux uropathy, unspecified; I25.2 Old myocardial infarction; I42.9 Cardiomyopathy, unspecified; E78.5 Hyperlipidemia, unspecified; Z87.442 Personal history of urinary calculi; Z82.49 Family history of ischemic heart disease and other diseases of the circulatory system; Z80.9 Family history of malignant neoplasm, unspecified
CPT/HCPCS: 74176; 80053; 85025; 96374; 96375; 96376; 99284; C9803; U0003; U0005

== ENCOUNTER 2021-10-18 09:40 | Emergency (ER) | payer BC, SELFPAY ==
[2021-10-18 11:30] VITALS: BP 144/76; PULSE 76; RESP 19; TEMP 36.8; O2SAT 98; BMI 34.4
--- NOTE | 2021-10-18 11:47 | EXP.UTC ---
Discharge Plan Disposition Patient Disposition: Home, Self-Care Condition: Good Prescriptions Prescriptions: New clindamycin HCl 300 mg capsule 300 mg PO Q8H 7 Days Qty: 21 0RF No Action loratadine 10 mg tablet 10 mg PO DAILY atorvastatin 80 MG tablet 80 mg PO DAILY Rx Instructions: TAKE ONE TABLET BY MOUTH EVERY DAY AT BEDTIME metoprolol succinate 25 MG tablet extended release 24 hr 1 tab PO DAILY Rx Instructions: TAKE ONE TABLET BY MOUTH EVERY DAY Referrals Follow up/Referrals: Taz Patton MD [Primary Care Provider] - See instructions Activity Restrictions/Add. Instructions Additional Instructions/Restrictions: Make sure to follow up in the next 48 hours to see if your wound culture is back Follow up with your Doctor that did your surgery and let them known about the drainage Return if needed Straight to ER if any life threatening symptoms Clinical Impressions Clinical Impression: Drainage from wound Discharge ED Provider: Jessy Gaspar [facility] General Stated complaint: nafrostaby tube has discharge Mode of Arrival: Ambulatory Source of Information: Patient Limitations: No Limitations Time Seen by Provider: 10/18/21 11:45 Description of Symptoms (Recalled from Triage Doc. by RN): PATIENT STATES HIS NEPHROSTOMY TUBE WAS REMOVED 1 WEEK AGO AND HE THINKS IT LOOKS INFECTED HEENT Symptoms (Recalled from RN notes): No Resp Symptoms (Recalled from RN notes): No Skin Symptoms (Recalled from RN notes): Yes MS Symptoms (Recalled from RN notes): No Functional Status (Recalled from RN notes): WNL History of Present Illness Provider Complaint: Patient states that he has a NEPHROSTOMY tube removed last week States that it has been doing good but he noticed last night he was having some drainage from the site State that it is not red or anything but was worried about infection so he wanted to have it checked Related Data Home Medications Medication Instructions Recorded Confirmed loratadine 10 mg tablet 10 mg PO DAILY Allergy symptoms 07/13/21 10/13/21 atorvastatin 80 mg tablet 80 mg PO DAILY Cholesterol 09/25/21 10/13/21 metoprolol succinate 25 mg 1 tab PO DAILY Hypertension 09/25/21 10/13/21 tablet,extended release 24 hr Previous Rx's Medication Instructions Recorded clindamycin HCl 300 mg capsule 300 mg PO Q8H 7 days #21 caps 10/18/21 Allergies Allergy/AdvReac Type Severity Reaction Status Date / Time No Known Allergies Allergy Verified 10/13/21 13:45 Worker's Comp Is this a Worker's Comp case?: No PFSH PFS Medical History (Updated 10/18/21 @ 11:58 by Jessy Gaspar APRN) Acute renal failure Cellulitis AHUJA (dyspnea on exertion) History of chest pain History of heart attack Hyperlipidemia Hypertension Kidney stone Obstructive uropathy Sinusitis Surgical History (Updated 10/18/21 @ 11:43 by Vanessa Mcnally RN) History of appendectomy Social History (Updated 10/18/21 @ 11:43 by Vanessa Mcnally RN) Smoking Status: Never smoker alcohol intake: current substance use type: denies use current occupational status: other Travel in the last 8 weeks: None household members: spouse housing: house caffeine: Yes ROS Obtained: Yes All systems reviewed & no additional complaints except as documented and Yes Systems reviewed as appropriate & no additional complaints except as documented Constitutional Constitutional: Reports system reviewed and no additional complaints, except as documented, Reports as per HPI and Denies fever(s) Cardiovascular Cardiovascular: Reports system reviewed and no additional complaints, except as documented and Reports as per HPI Respiratory Respiratory: Reports system reviewed and no additional complaints, except as documented and Reports as per HPI Gastrointestinal Gastrointestingal: Reports system reviewed and no additional complaints, except as documented and as per HPI Musculoskeletal M
[2021-10-18 12:02] VITALS: BP 144/76; PULSE 76; RESP 19; TEMP 36.8; O2SAT 98
== END 2021-10-18 12:08 | disposition home or self-care (01) ==
PROVIDERS: Emergency Provider Nurse Practitioner; PCP Family Medicine
DX: T83.512D Infection and inflammatory reaction due to nephrostomy catheter, subsequent encounter (principal); B95.7 Other staphylococcus as the cause of diseases classified elsewhere; Z16.11 Resistance to penicillins; Z16.29 Resistance to other single specified antibiotic; Z16.39 Resistance to other specified antimicrobial drug
CPT/HCPCS: 87070; 87077; 87186; 87205; 99213; G0463

== ENCOUNTER 2022-02-28 15:42 | Emergency (ER) | payer BC, SELFPAY ==
--- NOTE | 2022-02-28 16:08 | EXP.UTC ---
Discharge Plan Disposition Patient Disposition: Home, Self-Care Condition: Good Prescriptions Prescriptions: No Action loratadine 10 mg tablet 10 mg PO DAILY clindamycin HCl 300 mg capsule 300 mg PO Q8H 7 Days Qty: 21 0RF atorvastatin 80 MG tablet 80 mg PO DAILY Rx Instructions: TAKE ONE TABLET BY MOUTH EVERY DAY AT BEDTIME metoprolol succinate 25 MG tablet extended release 24 hr 1 tab PO DAILY Rx Instructions: TAKE ONE TABLET BY MOUTH EVERY DAY Referrals Follow up/Referrals: Taz Patton MD [Primary Care Provider] - See instructions Activity Restrictions/Add. Instructions Additional Instructions/Restrictions: Drink plenty of fluids. Take tylenol for pain or fever. Return if you begin to have difficulty breathing. Follow up with your regular doctor. GO TO THE ER FOR ANY WORSENING SYMPTOMS Clinical Impressions Clinical Impression: Exposure to 2019 novel coronavirus Instructions Patient Instructions: Coronavirus Disease 2019, Preventing the Spread of Coronavirus Discharge Instructions Discharge ED Provider: Mike Allen [facility] General Stated complaint: covid exposure, covid test Time Seen by Provider: 02/28/22 16:08 History of Present Illness Provider Complaint: He states that he was exposed to covid-19 5 days ago. He denies any symptoms so far, but he is around his grand children a lot and he does not want to make them sick. So he came in to have a covid-19 test. He has had 2 covid-19 vaccines last year, but he has not had any boosters since then. Related Data Home Medications Medication Instructions Recorded Confirmed loratadine 10 mg tablet 10 mg PO DAILY Allergy symptoms 07/13/21 10/13/21 atorvastatin 80 mg tablet 80 mg PO DAILY Cholesterol 09/25/21 10/13/21 metoprolol succinate 25 mg 1 tab PO DAILY Hypertension 09/25/21 10/13/21 tablet,extended release 24 hr Previous Rx's Medication Instructions Recorded clindamycin HCl 300 mg capsule 300 mg PO Q8H 7 days #21 caps 10/18/21 Allergies Allergy/AdvReac Type Severity Reaction Status Date / Time No Known Allergies Allergy Verified 02/28/22 16:[address] [facility] Disclaimer: The information contained in this section may have been updated after the patient was seen, as this information can be updated by other users. Medical History Acute renal failure Cellulitis AHUJA (dyspnea on exertion) History of chest pain History of heart attack Hyperlipidemia Hypertension Kidney stone Obstructive uropathy Sinusitis Surgical History History of appendectomy Social History Smoking Status: Never smoker alcohol intake: current substance use type: denies use current occupational status: other Travel in the last 8 weeks: None household members: spouse housing: house caffeine: Yes ROS Obtained: Yes All systems reviewed & no additional complaints except as documented Constitutional Constitutional: Denies chills and Denies fever(s) Eyes Eyes: Denies eye discharge ENT Ears, Nose, Mouth, and Throat: Denies dizziness, Denies otalgia and Denies sore throat Cardiovascular Cardiovascular: Denies chest pain Respiratory Respiratory: Denies shortness of breath, Denies chest congestion, Denies cough, Denies stridor and Denies wheezing Gastrointestinal Gastrointestingal: Denies nausea or vomiting Musculoskeletal Musculoskeletal: Reports system reviewed and no additional complaints, except as documented and Denies arthralgias Integumentary/Breasts Skin/Breast: Denies rash Neurologic Neurologic: Denies dizziness and Denies paresthesias Allergic/Immunologic Allergic/Immunologic: Denies wheezing Physical Exam General General appearance: alert and in no apparent distress Head Head exam: atraumatic, normocephalic and normal inspec
[2022-02-28 16:15] VITALS: BP 168/92; PULSE 65; RESP 19; TEMP 36.9; O2SAT 97; BMI 47.5
[2022-02-28 17:01] VITALS: BP 168/92; PULSE 65; RESP 20; TEMP 36.9; O2SAT 97
== END 2022-02-28 17:01 | disposition home or self-care (01) ==
PROVIDERS: Emergency Provider Nurse Practitioner Family; PCP Family Medicine
DX: Z20.822 Contact with and (suspected) exposure to COVID-19 (principal)
CPT/HCPCS: 99212; C9803; G0463; U0003; U0005

== ENCOUNTER → 2022-05-23 14:30 | Outpatient (CLI) | payer BC, SELFPAY ==
[2022-05-23 16:25] LABS: Basophils # 0.1 K/mm3 (0-0.2); Basophils % 0.8 % (0.1-2.0); Eosinophils # 0.3 K/mm3 (0.0-0.4); Eosinophils % 2.9 % (0.1-12.0); Hematocrit 46.8 % (42.0-52.0); Hemoglobin 14.6 g/dL (14.1-18.0); Lymphocytes # 1.8 K/mm3 (0.7-4.5); Lymphocytes % 20.4 % (10-50); Mean Corpuscular HGB Conc 31.1 g/dL (31.8-35.4); Mean Corpuscular Hemoglobin 26.2 pg (27.0-31.2); Mean Corpuscular Volume 84.2 fl (80-94); Mean Platelet Volume 7.8 fl (7.4-10.4); Monocytes # 0.5 K/mm3 (0.1-1.0); Monocytes % 5.7 % (1.7-9.3); Neutrophils # 6.2 K/mm3 (1.8-7.8); Neutrophils % 70.2 % (37.0-80.0); Platelet Count 211 K/mm3 (142-424); Red Blood Count 5.56 M/mm3 (4.60-6.20); Red Cell Distribution Width 15.3 % (11.5-17.5); White Blood Count 8.8 K/mm3 (4.8-10.8)
[2022-05-23 17:25] LABS: Alanine Aminotransferase 59 U/L (12-78); Albumin Level 4.6 g/dl (3.5-5.0); Alkaline Phosphatase 101 U/L (38-126); Anion Gap 13.4 mEq/L (5-15); Aspartate Amino Transferase 58 U/L (17-59); Calcium 9.3 mg/dl (8.4-10.2); Carbon Dioxide 30 mmol/L (22.0-30.0); Chloride 100 mmol/L (98-107); Chol/HDL Ratio 4.8 (1-3.5); Cholesterol 129 mg/dl (140-200); Glucose 126 mg/dl (74-100); HDL Cholesterol 27 mg/dl (40-60); Magnesium 2.1 mg/dl (1.6-2.3); Potassium 5.4 mmoL/L (3.5-5.1); Sodium 138 mmol/L (136-145); Total Protein,Serum 7.2 g/dl (6.3-8.2); Triglycerides 320 mg/dl (30-150); VLDL Cholesterol 64 mg/dL (0-40)
[2022-05-23 17:29] LABS: Blood Urea Nitrogen 20 mg/dl (9-20)
[2022-05-23 17:36] LABS: Direct LDL Cholesterol 59.13 mg/dL (100-129)
[2022-05-23 17:40] LABS: Free T4 (Free Thyroxine) 1.08 ng/dl (0.78-2.19)
[2022-05-23 17:54] LABS: Thyroid Stimulating Hormone 2.06 uIU/mL (0.465-4.68)
[2022-05-23 21:15] LABS: Estimated Glomerular Filt Rate 56 ml/min (>60); GFR (African American) 68 ML/MIN (>60)
== END ==
PROVIDERS: PCP Family Medicine; Visit Provider Nurse Practitioner Family
DX: I25.10 Atherosclerotic heart disease of native coronary artery without angina pectoris (principal); I42.8 Other cardiomyopathies; I11.0 Hypertensive heart disease with heart failure; I50.32 Chronic diastolic (congestive) heart failure; E78.2 Mixed hyperlipidemia
CPT/HCPCS: 36415; 80048; 80061; 80076; 83735; 84439; 84443; 85025; 93306

== ENCOUNTER 2022-12-05 13:54 | Emergency (ER) | payer BC, SELFPAY ==
[2022-12-05 14:15] VITALS: BP 193/94; PULSE 57; RESP 20; TEMP 36.8; O2SAT 98; BMI 46.0
--- NOTE | 2022-12-05 14:17 | EXP.UTC ---
Discharge Plan Disposition Patient Disposition: Home, Self-Care Condition: Good Prescriptions Prescriptions: New benzonatate [benzonatate] 100 mg capsule 100 mg PO TIDP PRN (Reason: Cough) Qty: 30 0RF methylprednisolone 4 mg Tablets,Dose Pack 4 mg PO DIRECTED Qty: 21 0RF amoxicillin-pot clavulanate 875-125 mg Tablet 1 tab PO Q12H Qty: 20 0RF No Action aspirin 81 mg tablet,delayed release (DR/EC) 81 mg PO DAILY allopurinol 300 mg tablet 300 mg PO DAILY potassium citrate 15 mEq tablet extended release 15 meq PO BID atorvastatin 80 MG tablet 80 mg PO DAILY Rx Instructions: TAKE ONE TABLET BY MOUTH EVERY DAY AT BEDTIME metoprolol succinate 25 MG tablet extended release 24 hr 1 tab PO DAILY Rx Instructions: TAKE ONE TABLET BY MOUTH EVERY DAY Referrals Follow up/Referrals: Taz Patton MD [Primary Care Provider] - See instructions Activity Restrictions/Add. Instructions Additional Instructions/Restrictions: Drink plenty of fluids. Take tylenol or ibuprofen for pain or fever. Take the medications as directed. Follow up with your regular doctor. GO TO THE ER FOR ANY WORSENING SYMPTOMS Clinical Impressions Clinical Impression: Sinusitis Instructions Patient Instructions: Sinusitis, DI for Sinusitis Discharge ED Provider: Mike Allen [facility] [place] General Stated complaint: congestion, cough runny nose Time Seen by Provider: 12/05/22 14:16 History of Present Illness Provider Complaint: He states that for the past 1 week he has had sore throat, chills, and low grade fever. He has sinus congestion also. Related Data Home Medications Medication Instructions Recorded Confirmed atorvastatin 80 mg tablet 80 mg PO DAILY Cholesterol 09/25/21 11/21/22 metoprolol succinate 25 mg 1 tab PO DAILY Hypertension 09/25/21 11/21/22 tablet,extended release 24 hr allopurinol 300 mg tablet 300 mg PO DAILY 03/02/22 11/21/22 aspirin 81 mg tablet,delayed 81 mg PO DAILY 03/02/22 11/21/22 release potassium citrate 15 mEq (1,620 15 meq PO BID 03/02/22 11/21/22 mg) tablet,extended release Previous Rx's Medication Instructions Recorded amoxicillin 875 mg-potassium 1 tab PO Q12H #20 tabs 12/05/22 clavulanate 125 mg tablet benzonatate 100 mg capsule 100 mg PO TIDP PRN Cough #30 caps 12/05/22 methylprednisolone 4 mg tablets in 4 mg PO DIRECTED #21 tabs 12/05/22 a dose pack Allergies Allergy/AdvReac Type Severity Reaction Status Date / Time No Known Allergies Allergy Verified 11/21/22 13:17 [facility] Disclaimer: The information contained in this section may have been updated after the patient was seen, as this information can be updated by other users. Medical History Acute renal failure Cellulitis AHUJA (dyspnea on exertion) History of chest pain History of heart attack Hyperlipidemia Hypertension Kidney stone Obstructive uropathy Sinusitis Surgical History History of appendectomy Social History Smoking Status: Never smoker alcohol intake: current substance use type: denies use current occupational status: other Travel in the last 8 weeks: None household members: spouse housing: house caffeine: Yes ROS Obtained: Yes All systems reviewed & no additional complaints except as documented Constitutional Constitutional: Reports chills and Reports fever(s) Eyes Eyes: Denies eye discharge ENT Ears, Nose, Mouth, and Throat: Reports as per HPI Cardiovascular Cardiovascular: Denies chest pain Respiratory Respiratory: Denies chest congestion and Reports cough Gastrointestinal Gastrointestingal: Reports nausea; Denies abdominal pain, constipation, cramping, diarrhea or vomiting Musculoskeletal Musculoskeletal: Denies arthralgias Integumentary/Marlen
[2022-12-05 14:44] VITALS: BP 193/94; PULSE 57; RESP 20; TEMP 36.8; O2SAT 98
== END 2022-12-05 14:49 | disposition home or self-care (01) ==
PROVIDERS: Emergency Provider Nurse Practitioner Family; PCP Family Medicine
DX: J01.90 Acute sinusitis, unspecified (principal); I10 Essential (primary) hypertension; E78.5 Hyperlipidemia, unspecified; Z87.442 Personal history of urinary calculi; Z86.79 Personal history of other diseases of the circulatory system
CPT/HCPCS: 99212; 99214; G0463

== ENCOUNTER 2023-12-15 06:30 | Inpatient (IN) | payer BC, SELFPAY ==
[2023-12-15] VITALS (43 sets, daily range): BP systolic 104–177; BP diastolic 61–116; PULSE 54–102; RESP 15–22; TEMP 36.6–37.1; O2SAT 90–100; BMI 33.9; BMI 44.7; BMI 45.7
--- NOTE | 2023-12-15 | IR_ITS ---
APPROVED REPORT Patient Location: Inpatient PROCEDURES Left heart catheterization Left ventriculogram Selective coronary angiogram INDICATION Non-ST elevation myocardial infarction, Worsening cardiomyopathy Informed consent was obtained prior to the procedure. COMPLICATIONS None Estimated Blood Loss: Less than 10 mls TECHNIQUE One percent lidocaine used to anesthetize the right anterior aspect of the wrist. The right radial artery was accessed via the Seldinger technique. A 6 [place] sheath was placed in the right radial artery. 2.5 mg of Verapamil, 800 mcg of nitroglycerin, 1mg Lidocaine and 5000 U Heparin were given through the arterial sheath. The 6 [place] JL 3 catheter was also used to perform left heart catheterization, left ventriculogram and selective coronary angiogram. At the end of the procedure the sheath was removed good hemostasis was achieved using Traclet band, patient was transferred to the postop holding area in stable condition. ANGIOGRAPHIC RESULTS The left main artery Normal The left anterior descending artery Is proximally normal and then has a concentric 40% stenosis immediately after the first septal black pickler and first diagonal artery. NATHAN II flow was present down the LAD. There are additional 40% mid vessel and distal stenosis The circumflex artery Is dominant and has diffuse mild 10% luminal regularities The right coronary artery Is nondominant yet still large and has mid vessel concentric 40 to 50% stenosis The BARNEY ventriculogram reveals Severe left ventricular dilatation with global hypokinesis estimated ejection fraction 25% The left ventricular end-diastolic pressure Critically elevated at 50 mmHg IMPRESSION Coronary artery disease as described above which is unlikely to be ischemic however the degree of decompensated heart failure is to critical to appropriately assess for ischemic heart disease New onset severely reduced ejection fraction Critically elevated LVEDP PLAN 1. Patient is critically ill with severely elevated LVEDP. He requires IV diuresis over the weekend. I would like to repeat the echocardiogram on Monday. In the setting of an LVEDP of 50 ejection fraction is not going to be accurate. Previously his ejection fraction was nearly normal and this may improve with additional diuresis. 2. If ejection fraction remains severely depressed on Monday after large-volume diuresis then consideration should be given to place a LifeVest. 3. Standard therapy for systolic heart failure 4. After patient is in a euvolemic state we may need to reconsider evaluating the LAD and right coronary artery lesion for ischemia. Currently the LVEDP is too elevated to appropriately and accurately assess with FFR 5. LDL less than 55 to achieve that high intensity statin Electronically signed by : Varinder Jerome MD 12/15/2023 14:13:08
--- NOTE | 2023-12-15 06:29 | ECG_ITS ---
APPROVED REPORT Exam: Resting ECG HR:110 bpm ECG Measurements Heart Rate 110 AXES [place] 160 P 3 QRSd 100 QRS -56 QT 314 T 70 QTc 379 Conclusion SINUS TACHYCARDIA WITH FREQUENT VENTRICULAR PREMATURE COMPLEXES LEFT ANTERIOR FASCICULAR BLOCK [QRS AXIS <= -45, QR IN I, RS IN II] ANTERIOR MYOCARDIAL INFARCTION , OF INDETERMINATE AGE [40+ ms Q WAVE AND/OR ST/T ABNORMALITY IN V3/V4] INFERIOR MYOCARDIAL INFARCTION , OF INDETERMINATE AGE [40+ ms Q WAVE AND/OR ST/T ABNORMALITY IN II/aVF] No STEMI, artifact does complicate interpretation, see repeat ECG Electronically signed by : NATALI VILLAGRAN, 12/16/2023 07:49:24
--- NOTE | 2023-12-15 06:32 | XR_ITS ---
PROCEDURE INFORMATION: Exam: XR Chest Exam date and time: 12/15/2023 6:44 AM Age: 63 years old Clinical indication: Dyspnea and shortness of breath; Additional info: SOA, hypoxia, dsypnea TECHNIQUE: Imaging protocol: Radiologic exam of the chest. Views: 1 view. COMPARISON: CT ANGIO CHEST 01/23/2020 12:47 AM FINDINGS: Lungs: No focal consolidation. Increased interstitial and vascular prominence. Pleural spaces: No pneumothorax or pleural effusion. Heart/Mediastinum: Heart is enlarged. Mediastinal contours unremarkable.. Bones/joints: No acute osseous or soft tissue abnormality. IMPRESSION: 1. Pulmonary edema/CHF. 2. Cardiomegaly.
[2023-12-15] MEDS: IPRATROPIUM/ALBUTEROL 3 ML NEB 9 ML IH (06:42)
[2023-12-15 06:43] LABS: VBG Base Excess -4.6 mmol/L (-2.4-2.3); VBG HCO3 21.7 mmol/L (23-30); VBG Oxygen Saturation 81.3 % (50-70); VBG PCO2 44.6 mmol/L (35-51); VBG PH 7.31 mmol/L (7.31-7.41); VBG Total CO2 23.1 mmol/L (23-27)
[2023-12-15 06:44] LABS: Lactate Venous 3.4 mmol/L (0.4-2.0)
[2023-12-15] MEDS: FUROSEMIDE 40MG/4ML VIAL 40 MG IV (06:44)
[2023-12-15] MEDS: NITROGLYCERIN IN 5 % DEXTROSE 250 ML 1.5 MG IV (06:45)
[2023-12-15 06:46] LABS: Basophils # 0.2 K/mm3 (0-0.2); Basophils % 1.4 % (0.1-2.0); Eosinophils # 0.4 K/mm3 (0.0-0.4); Eosinophils % 3.3 % (0.1-12.0); Hematocrit 51.7 % (42.0-52.0); Hemoglobin 16.5 g/dL (14.1-18.0); Lymphocytes # 3.6 K/mm3 (0.7-4.5); Lymphocytes % 29.1 % (10-50); Mean Corpuscular Hemoglobin 26.3 pg (27.0-31.2); Mean Corpuscular Volume 82.4 fl (80-94); Mean Platelet Volume 8.3 fl (7.4-10.4); Monocytes # 0.7 K/mm3 (0.1-1.0); Monocytes % 5.5 % (1.7-9.3); Neutrophils # 7.4 K/mm3 (1.8-7.8); Neutrophils % 60.7 % (37.0-80.0); Platelet Count 202 K/mm3 (142-424); Red Blood Count 6.27 M/mm3 (4.60-6.20); Red Cell Distribution Width 15.4 % (11.5-17.5); White Blood Count 12.2 K/mm3 (4.8-10.8)
--- NOTE | 2023-12-15 06:48 | [facility].EDCP ---
Discharge Plan Disposition Patient Disposition: Admitted Condition: Good Clinical Impressions Clinical Impression: Flash pulmonary edema, Severe hypertension, Acute hypoxic respiratory failure Discharge ED Provider: Blas Moses <Blas Moses MD - Last Filed: 12/15/23 07:13> General Chief Complaint: Shortness of Breath/Dyspnea Stated Complaint: SOA, dyspnea Time Seen by Provider: 12/15/23 06:37 History of Present Illness HPI narrative: 63-year-old male with history of CAD, CHF, hypertension, hyperlipidemia, diabetes presents to the ER with acute onset shortness of breath. Patient reports 1 hour ago he suddenly started feeling very short of breath. He also got sweaty. He stated his symptoms felt like his last heart attack, family brought him to the ER. Patient admits he has had a lot going on in his personal life and has missed multiple doses of his home medications including his Lasix and blood pressure medications. Patient reports he has not had fevers, chills, he does not report chest pain, he denies nausea, vomiting, abdominal pain, he does report increased swelling in the legs. He denies a history of COPD, does not smoke. No headache or dizziness. ROS otherwise negative. Related Data Home Medications ?Medication ?Instructions ?Recorded ?Confirmed atorvastatin 80 mg tablet 80 mg PO HS 09/25/21 12/15/23 metoprolol succinate 25 mg 1 tab PO DAILY 09/25/21 12/15/23 tablet,extended release 24 hr allopurinol 300 mg tablet 300 mg PO DAILY 03/02/22 12/15/23 aspirin 81 mg tablet,delayed 81 mg PO DAILY 03/02/22 12/15/23 release potassium citrate 15 mEq (1,620 15 meq PO BID 03/02/22 12/15/23 mg) tablet,extended release empagliflozin 25 mg tablet 25 mg PO DAILY 05/22/23 12/15/23 (Jardiance) Allergies Allergy/AdvReac Type Severity Reaction Status Date / Time No Known Allergies Allergy Verified 05/22/23 13:19 PFSH <Blas Moses MD - Last Filed: 12/15/23 07:13> [facility] Disclaimer: The information contained in this section may have been updated after the patient was seen, as this information can be updated by other users. Medical History (Updated 12/15/23 @ 13:15 by Nidia Devine APRN) PVCs (premature ventricular contractions) Hyperkalemia HFrEF (heart failure with reduced ejection fraction) Atypical angina Acute on chronic heart failure with preserved ejection fraction (HFpEF) History of left heart catheterization Congestive heart failure DM type 2 (diabetes mellitus, type 2) Non-STEMI (non-ST elevated myocardial infarction) Kidney stone History of chest pain History of heart attack Hyperlipidemia Hypertension Obstructive uropathy Acute renal failure Sinusitis Cellulitis AHUJA (dyspnea on exertion) Surgical History History of bowel resection History of lithotripsy History of tonsillectomy History of appendectomy Family History Other Alcoholism Cancer Coronary artery disease Diabetes Heart attack Hyperlipidemia Hypertension Stroke Social History (Updated 12/15/23 @ 12:37 by Anabel Xiao RN) Smoking Status: Never smoker alcohol intake: current alcohol intake frequency: holidays/special occasions only substance use type: denies use current occupational status: other Travel in the last 8 weeks: None adopted: No caregiver/support person: No household members: spouse, family and children housing: house lives independently: No marital status: number of children: 4 number of grandchildren: 13 education level: high school service: Yes ([employer]) status: retired branch: [employer] custodial: No current occupational exposures/hazards: No pets and animals: No diet: low salt well-balanced diet: about half the time caffeine: Yes high-fat food intake: 0-1 times daily daily servings fruits/ve-4 daily servings of milk/calcium: 0-1 eating out: 1-3 times/week reads food labels: seldom or never special maggie needs: No agree to transfusion: Yes helmet use: Yes helmet use: always drive intox or ride w/ intox trailer driver: No water heater temp set < 120 deg: Yes working smoke detector in home: Yes fire extinguisher in home: Yes carbon monox detector in home: Yes firearms in home: Yes firearms unloaded and locked: Yes do you feel safe at home: Yes victim of physical abuse: No victim of sexual abuse: No Other Medical History Have you received the Flu Vaccine for this season: No Have you received the Pneumonia Vaccine: No <Blas Moses MD - Last Filed: 12/15/23 07:13> ROS Obtained: Yes All systems reviewed & no additional complaints except as documented Positive ROS per HPI Physical Exam <Blas Moses MD - Last Filed: 12/15/23 07:13> General General appearance: alert, in distress and obese Comment: Diaphoretic, in extremis, respiratory distress Head Head exam: atraumatic and normocephalic Eye Eye exam: Present PERRL and EOMI ENT ENT exam: Present mucous membranes moist Neck Neck exam: Present normal inspection and full ROM Chest Chest inspection: Present symmetric chest wall rise Respiratory Respiratory exam: Present respiratory distress and wheezes; Absent normal lung sounds bilaterally (Diminished breath sounds throughout with wheezing, no rhonchi or rales appreciated) or stridor Cardiovascular Cardiovascular exam: Present normal rhythm and tachycardia Abdominal Exam Abdominal exam: Present soft; Absent distention or tenderness Extremities Exam Extremities exam: Present full ROM and edema (+2 bilateral lower extremity pitting edema) Neurological Exam Neurological exam: Present alert and oriented X3; Absent motor sensory deficit Psychiatric Psychiatric exam: Present normal affect and normal mood Skin Skin exam: Present warm and diaphoresis HEART Score <Blas Moses MD - Last Filed: 12/15/23 07:13> HEART Score HEART Score assessment performed?: No <Ayad Weinberg MD - Last Filed: 12/15/23 16:08> HEART Score HEART Score assessment performed?: Yes History (anamnesis): Moderately suspicious ECG: Non-specific disturbance Age: 45-65 years Risk factors: 3 or more risk factors Troponin: 1-3x normal limit HEART Score: 6 Procedures <Blas Moses MD - Last Filed: 12/15/23 07:13> Miscellaneous Procedure Procedure Performed: Limited Cardiac Ultrasound Indication: Shortness of breath Identified cardiac views: Parasternal long axis, parasternal short axis, apical four-chamber Findings: Cardiac activity present with poor wall motion of the left ventricle throughout, no pericardial effusion, no right heart strain Impression: -Poor wall motion of the left ventricle, decreased EF, no pericardial effusion, no right heart strain Images were saved to permanent archive The study was technically adequate CPT: 73950 This study was performed by me, and I personally interpreted all images/videos. Based on my clinical judgement, these images were adequate and did not necessitate further imaging. Limited lung ultrasound A focused ultrasound exam of the pleural spaces was performed to evaluate for pneumothorax, pulmonary edema, pleural effusion and/or consolidation. The ultrasound was performed with the following indications, as noted in the H&P: Shortness of breath, hypoxia Identified structures: Bilateral thoracic cavities were examined. Findings: Lung sliding: -Present bilaterally B-lines: Present in anterior and lateral lung gutierrez bilaterally Pleural effusion: -Not appreciated bilaterally Consolidation: No consolidation appreciated bilaterally Impression: - Pneumothorax bilaterally absent - Pleural effusion bilaterally absent - B-lines bilaterally present throughout all imaged lung gutierrez - Consolidation bilaterally absent Images were saved to permanent archive The study was technically adequate CPT 85409-43 This study was performed by me, and I personally interpreted all images/videos. Based on my clinical judgement, these images were adequate and did not necessitate further imaging. Critical Care <Blas Moses MD - Last Filed: 12/15/23 07:13> Critical Care Time Critical Care Time: Yes Attestation: On 12/15/23, the high probability of a clinically significant, sudden or life threatening deterioration of the following system(s) (respiratory, cardiac) required my full and direct attention, intervention and personal management. The time I documented below is in addition to time spent performing reported procedures but includes the following listed in this critical care notation. Total Time Total Critical Care Time: 35 Medical Decision Making <Blas Moses MD - Last Filed: 12/15/23 07:13> Medical Records Medical records reviewed: Yes I reviewed the patient's medical records. MR Comment: Most recent cardiology progress note from May 2023 was reviewed. At that time plan was to obtain outpatient labs and have the patient return to clinic in 6 months. Echo performed in 2022 demonstrated EF 50 to 55%, no effusion, normal left ventricular thickness and mass. [place] Inquiry Pt receiving controlled substance: No Vital Signs Vital Signs: 12/15/23 06:31 12/15/23 06:45 12/15/23 06:45 Temperature 97.8 F Temperature Source Axillary Pulse Rate 94 H Pulse Rate [Apical] 102 H Respiratory Rate 18 Blood Pressure Blood Pressure [Right Arm] 177/116 H Blood Pressure Mean Blood Pressure Mean [Right Arm] 136 Blood Pressure Source Blood Pressure Source [Right Arm] Automatic Cuff Blood Pressure Position Blood Pressure Position [Right Arm] Sitting 02 Sat by Pulse Oximetry 99 Oxygen Delivery Method CPAP Oxygen Flow Rate (LPM) 30 12/15/23 06:45 12/15/23 06:51 12/15/23 07:01 Temperature Temperature Source Pulse Rate 96 H 92 H 87 Pulse Rate [Apical] Respiratory Rate 19 19 Blood Pressure 148/102 H 142/88 H Blood Pressure [Right Arm] Blood Pressure Mean Blood Pressure Mean [Right Arm] Blood Pressure Source Blood Pressure Source [Right Arm] Blood Pressure Position Blood Pressure Position [Right Arm] 02 Sat by Pulse Oximetry 98 97 Oxygen Delivery Method Oxygen Flow Rate (LPM) 12/15/23 07:08 12/15/23 07:11 12/15/23 07:21 Temperature Temperature Source Pulse Rate 83 83 84 Pulse Rate [Apical] Respiratory Rate Blood Pressure 142/72 H 143/94 H 137/82 Blood Pressure [Right Arm] Blood Pressure Mean 95 110 100 Blood Pressure Mean [Right Arm] Blood Pressure Source Blood Pressure Source [Right Arm] Blood Pressure Position Blood Pressure Position [Right Arm] 02 Sat by Pulse Oximetry 97 97 96 Oxygen Delivery Method BiPAP BiPAP BiPAP Oxygen Flow Rate (LPM) 12/15/23 07:31 12/15/23 07:41 12/15/23 07:51 Temperature Temperature Source Pulse Rate 82 82 Pulse Rate [Apical] Respiratory Rate 19 15 Blood Pressure 128/82 130/82 133/75 Blood Pressure [Right Arm] Blood Pressure Mean 96 90 86 Blood Pressure Mean [Right Arm] Blood Pressure Source Blood Pressure Source [Right Arm] Blood Pressure Position Blood Pressure Position [Right Arm] 02 Sat by Pulse Oximetry 98 98 98 Oxygen Delivery Method CPAP CPAP CPAP Oxygen Flow Rate (LPM) 12/15/23 08:01 12/15/23 08:10 12/15/23 08:20 Temperature Temperature Source Pulse Rate Pulse Rate [Apical] Respiratory Rate 19 19 20 Blood Pressure 109/75 L 104/66 L 108/70 L Blood Pressure [Right Arm] Blood Pressure Mean 82 76 76 Blood Pressure Mean [Right Arm] Blood Pressure Source Blood Pressure Source [Right Arm] Blood Pressure Position Blood Pressure Position [Right Arm] 02 Sat by Pulse Oximetry 98 98 Oxygen Delivery Method CPAP CPAP BiPAP Oxygen Flow Rate (LPM) 12/15/23 08:30 12/15/23 08:40 12/15/23 09:03 Temperature 98.0 F Temperature Source Oral Pulse Rate 82 Pulse Rate [Apical] Respiratory Rate 20 20 18 Blood Pressure 117/74 114/75 114/75 Blood Pressure [Right Arm] Blood Pressure Mean 84 82 Blood Pressure Mean [Right Arm] Blood Pressure Source Automatic Cuff Blood Pressure Source [Right Arm] Blood Pressure Position Sitting Blood Pressure Position [Right Arm] 02 Sat by Pulse Oximetry Oxygen Delivery Method CPAP CPAP CPAP Oxygen Flow Rate (LPM) Lab Data Labs: Lab Results 12/15/23 06:32: VBG pH 7.31, VBG pCO2 44.6, VBG pO2 50.0 H, VBG HCO3 21.7 L, VBG Total CO2 23.1, VBG O2 Saturation 81.3 H, VBG Base Excess -4.6 L, VBG Lactic Acid 3.4 H 12/15/23 06:35: WBC 12.2 H, RBC 6.27 H, Hgb 16.5, Hct 51.7, MCV 82.4, MCH 26.3 L, MCHC 32.0, RDW 15.4, Plt Count 202, MPV 8.3, Neut % (Auto) 60.7, Lymph % (Auto) 29.1, [place] % (Auto) 5.5, Eos % (Auto) 3.3, Baso % (Auto) 1.4, Neut # (Auto) 7.4, Lymph # (Auto) 3.6, [place] # (Auto) 0.7, Eos # (Auto) 0.4, Baso # (Auto) 0.2, PT 10.5, INR 0.93, D-Dimer 0.49, Sodium 137, Potassium 5.9 H, Chloride 107, Carbon Dioxide 19 L, Anion Gap 16.9 H, BUN 27 H, Creatinine 1.20, Estimated Creat Clear 69, Estimated GFR 61, Est GFR ( Amer) 74, Glucose 213 H, Calcium 9.1, Magnesium 1.6, Total Bilirubin 1.1, AST 52, ALT 38, Alkaline Phosphatase 80, Troponin I 0.04 H, NT-Pro-B Natriuret Pep 1050 H, Total Protein 7.7, Albumin 4.6, Globulin 3.1, Albumin/Globulin Ratio 1.5 12/15/23 07:15: HIV 1&2 Antibody Rapid Nonreactive 12/15/23 06:35 12/15/23 06:35 Response Orders (Tests/Meds): ED MEDICATIONS Generic Name Dose Route Start Last Admin Trade Name Freq PRN Reason Stop Dose Admin Aspirin 81 mg 12/15/23 13:15 12/15/23 13:18 Aspirin Ec 81mg Tablet PO 01/14/24 13:14 81 mg DAILY GREGORY Administration Atorvastatin Calcium 80 mg 12/15/23 21:00 Atorvastatin 40mg Tablet PO 01/14/24 20:59 HS GREGORY Empagliflozin 10 mg 12/15/23 13:15 12/15/23 13:18 Empagliflozin 10mg Tablet PO 01/14/24 13:14 10 mg DAILY GREGORY Administration Famotidine 20 mg 12/15/23 21:00 Famotidine 20mg Tablet PO 01/14/24 20:59 BID GREGORY Fentanyl Citrate 50 mcg 12/15/23 12:36 12/15/23 13:51 Fentanyl 100mcg/2ml Vial IV 12/16/23 00:36 75 mcg Q3MINP PRN Administration Sedation Fentanyl Citrate 25 mcg 12/15/23 12:36 Fentanyl 100mcg/2ml Vial IV 12/16/23 00:36 Q3MINP PRN Sedation Flumazenil 0.2 mg 12/15/23 12:36 Flumazenil 0.1mg/Ml 5ml Vial IV 12/16/23 00:36 NEEDED PRN Sedation Furosemide 80 mg 12/15/23 14:15 12/15/23 15:42 Furosemide 100mg/10ml Vial IV 01/14/24 14:14 Not Given Q8 [facility] Heparin Sodium (Porcine) 10,000 unit 12/15/23 12:36 Heparin 1,000 Units/Ml 10ml Vial (Storage [employer]arf[employer] Clerk) IV 12/15/23 16:36 NEEDED PRN [employer] T[employer] Hydralazine HCl 20 mg 12/15/23 12:36 Hydralazine 20mg/Ml Vial IV 12/15/23 16:36 ONCE PRN sbp>160 Nitroglycerin/Dextrose 250 mls @ 1.5 mls/hr 12/15/23 06:45 12/15/23 07:32 Nitroglycerin 50mg/250ml D5w IV 01/14/24 06:44 0 mcg/min .Q24H GREGORY 0 mls/hr Titration Protocol 5 MCG/MIN Adenosine 180 mg/ Sodium 90 mls @ 826.519 mls/hr 12/15/23 12:36 Chloride IV 12/15/23 16:36 ONCE PRN fractional flow reserve 180 MCG/KG/MIN Adenosine 90 mg/ Sodium 90 mls @ 1,653.037 mls/hr 12/15/23 12:36 Chloride IV 12/15/23 16:36 ONCE PRN fractional flow reserve 180 MCG/KG/MIN Sodium Chloride 1,000 mls @ 25 mls/hr 12/15/23 12:45 12/15/23 14:59 Sod Chloride 0.9% 500ml Bag IV 12/16/23 12:36 Not Given .Q25H GREGORY Labetalol HCl 20 mg 12/15/23 12:36 Labetalol 20mg/4ml Syringe IV 12/15/23 16:36 ONCE PRN sbp>160 Metoprolol Succinate 25 mg 12/15/23 13:15 12/15/23 13:18 Metoprolol Succinate Xl 25mg Tablet PO 01/14/24 13:14 25 mg DAILY GREGORY Administration Midazolam HCl 1 mg 12/15/23 12:36 Midazolam 2mg/2ml Vial IV 12/16/23 00:36 Q3MINP PRN Sedation Midazolam HCl 1 mg 12/15/23 12:36 12/15/23 13:50 Midazolam Hcl 1mg/Ml 5ml Vial IV 12/16/23 00:36 3 mg Q3MINP PRN Administration Sedation Naloxone HCl 0.4 mg 12/15/23 12:36 Naloxone 0.4mg/Ml Vial IV 12/16/23 00:36 Q5MINP PRN Decreased Respirations Nitroglycerin 800 mcg 12/15/23 12:36 Nitroglycerin 800mcg/8ml Syr (Storage [employer]arfage Clerk) IA 12/15/23 16:36 NEEDED PRN [employer] Protamine Sulfate 50 mg 12/15/23 12:36 Protamine Sulfate 50mg/5ml Vial (Storage [employer]age Clerk) IV 12/15/23 16:36 ONCE PRN act>200 Sodium Chloride 10 ml 12/15/23 12:36 Sodium Chloride 0.9% 10ml Flush Syringe IV 01/14/24 12:35 NEEDED PRN Maintain IV Site Discontinued Medications Generic Name Dose Route Start Last Admin Trade Name Freq PRN Reason Stop Dose Admin Albuterol/Ipratropium 9 ml 12/15/23 06:35 12/15/23 06:42 Ipratropium/Albuterol 3 Ml Neb IH 12/15/23 06:36 9 ml ONCE ONE Administration Diphenhydramine HCl 50 mg 12/15/23 12:01 12/15/23 14:58 Diphenhydramine 50mg/Ml Vial IV 12/15/23 12:02 Not Given ONCE ONE Furosemide 40 mg 12/15/23 06:35 12/15/23 06:44 Furosemide 40mg/4ml Vial IV 12/15/23 06:36 40 mg ONCE ONE Administration Furosemide 40 mg 12/15/23 16:00 Furosemide 40mg/4ml Vial IV 01/14/24 15:59 BIDL GREGORY Heparin Sodium/Sodium Chloride 3,000 unit 12/15/23 12:36 12/15/23 13:37 Heparin 1,000 Units/500ml Ns (Storage [employer] Clerk) IV 12/15/23 12:37 3,000 unit ONCE ONE Administration Iopamidol 50 ml 12/15/23 14:53 12/15/23 14:53 Iopamidol-370 (76%);100ml Bottle IV 12/15/23 14:54 50 ml ONCE ONE Administration Lidocaine HCl 20 ml 12/15/23 12:36 12/15/23 13:36 Lidocaine 1% 10ml Mdv IJ 12/15/23 12:37 10 ml ONCE ONE Administration Lidocaine HCl 20 ml 12/15/23 12:36 12/15/23 14:58 Lidocaine 1% 5ml Pf Vial IJ 12/15/23 12:37 Not Given ONCE ONE Verapamil HCl 2.5 mg 12/15/23 12:36 12/15/23 14:59 Verapamil 2.5mg/Ml 2ml Vial IV 12/15/23 12:37 Not Given ONCE ONE ORDERS Category Date Time Status XR chest portable Stat Exams 12/15/23 06:32 Completed Complete Blood Count Auto Diff Stat Lab 12/15/23 06:35 Completed Comprehensive Metabolic Panel Stat Lab 12/15/23 06:35 Completed D-Dimer Stat Lab 12/15/23 06:35 Completed HIV (1&2) Antibody Rapid Stat Lab 12/15/23 07:15 Completed Hep C Ab with Reflex to RNA Stat Lab 12/15/23 07:15 Received Magnesium Stat Lab 12/15/23 06:35 Completed NT Pro Brain Natriuretic Pep. Stat Lab 12/15/23 06:35 Completed PT/INR [Prothrombin Time INR] Stat Lab 12/15/23 06:35 Completed Troponin I Q3H Lab 12/15/23 09:50 Completed Troponin I Q3H Lab 12/15/23 13:00 Completed Troponin I Stat Lab 12/15/23 06:35 Completed Venous Blood Gas Stat RT 12/15/23 06:32 Completed MDM Narrative Medical Decision Narrative: In summary, this 63-year-old male with comorbidities as described in HPI presents to the emergency department today with acute onset shortness of breath. On initial evaluation patient is hypertensive, tachycardic, diaphoretic, ill-appearing, patient was obviously in respiratory distress with diminished breath sounds throughout as well as wheezing, no rhonchi or rales were appreciated, patient is obese and has obvious peripheral edema. He admits to poor compliance with his medications recently.. Differential diagnosis includes but is not limited to ACS, PE, flash pulmonary edema, medication noncompliance, fluid overload, electrolyte abnormality, kidney dysfunction. Based on these concerns, I ordered serum labs, cardiac workup, D-dimer, I performed [id number] bedside ultrasound. [id number] ultrasound demonstrated B-lines throughout the lung gutierrez as well as diminished left ventricular function, EF appears reduced but was not measured. Due to findings on initial vitals, exam, ultrasound, patient was started on furosemide, nitro drip, NIPPV. ECG personally interpreted demonstrates sinus tachycardia, frequent PVCs, rate 110, normal [place] and QTc, there is significant artifact however there does not appear to be STEMI, ECG will be repeated. Repeat ECG 30 minutes later demonstrates sinus rhythm with frequent PVCs, rate 90, normal axis, normal [place] and QTc, artifact is improved on this ECG and there does not appear to be STEMI. Labs personally reviewed demonstrate leukocytosis with WBC 12.2, no anemia, VBG with pH 7.31, no hypercarbia, patient does have elevated VBG lactic at 3.4, additional labs pending at the time of physician handoff. Chest x-ray personally interpreted does demonstrate findings concerning for pulmonary edema. Radiology read pending. Patient handed off to Dr. Weinberg for further management and disposition pending additional labs and radiology results. <Ayad Weinberg MD - Last Filed: 12/15/23 16:08> Vital Signs Vital Signs: 12/15/23 06:31 12/15/23 06:45 12/15/23 06:45 Temperature 97.8 F Temperature Source Axillary Pulse Rate 94 H Pulse Rate [Apical] 102 H Respiratory Rate 18 Blood Pressure Blood Pressure [Right Arm] 177/116 H Blood Pressure Mean Blood Pressure Mean [Right Arm] 136 Blood Pressure Source Blood Pressure Source [Right Arm] Automatic Cuff Blood Pressure Position Blood Pressure Position [Right Arm] Sitting 02 Sat by Pulse Oximetry 99 Oxygen Delivery Method CPAP Oxygen Flow Rate (LPM) 30 12/15/23 06:45 12/15/23 06:51 12/15/23 07:01 Temperature Temperature Source Pulse Rate 96 H 92 H 87 Pulse Rate [Apical] Respiratory Rate 19 19 Blood Pressure 148/102 H 142/88 H Blood Pressure [Right Arm] Blood Pressure Mean Blood Pressure Mean [Right Arm] Blood Pressure Source Blood Pressure Source [Right Arm] Blood Pressure Position Blood Pressure Position [Right Arm] 02 Sat by Pulse Oximetry 98 97 Oxygen Delivery Method Oxygen Flow Rate (LPM) 12/15/23 07:08 12/15/23 07:11 12/15/23 07:21 Temperature Temperature Source Pulse Rate 83 83 84 Pulse Rate [Apical] Respiratory Rate Blood Pressure 142/72 H 143/94 H 137/82 Blood Pressure [Right Arm] Blood Pressure Mean 95 110 100 Blood Pressure Mean [Right Arm] Blood Pressure Source Blood Pressure Source [Right Arm] Blood Pressure Position Blood Pressure Position [Right Arm] 02 Sat by Pulse Oximetry 97 97 96 Oxygen Delivery Method BiPAP BiPAP BiPAP Oxygen Flow Rate (LPM) 12/15/23 07:31 12/15/23 07:41 12/15/23 07:51 Temperature Temperature Source Pulse Rate 82 82 Pulse Rate [Apical] Respiratory Rate 19 15 Blood Pressure 128/82 130/82 133/75 Blood Pressure [Right Arm] Blood Pressure Mean 96 90 86 Blood Pressure Mean [Right Arm] Blood Pressure Source Blood Pressure Source [Right Arm] Blood Pressure Position Blood Pressure Position [Right Arm] 02 Sat by Pulse Oximetry 98 98 98 Oxygen Delivery Method CPAP CPAP CPAP Oxygen Flow Rate (LPM) 12/15/23 08:01 12/15/23 08:10 12/15/23 08:20 Temperature Temperature Source Pulse Rate Pulse Rate [Apical] Respiratory Rate 19 19 20 Blood Pressure 109/75 L 104/66 L 108/70 L Blood Pressure [Right Arm] Blood Pressure Mean 82 76 76 Blood Pressure Mean [Right Arm] Blood Pressure Source Blood Pressure Source [Right Arm] Blood Pressure Position Blood Pressure Position [Right Arm] 02 Sat by Pulse Oximetry 98 98 Oxygen Delivery Method CPAP CPAP BiPAP Oxygen Flow Rate (LPM) 12/15/23 08:30 12/15/23 08:40 12/15/23 09:03 Temperature 98.0 F Temperature Source Oral Pulse Rate 82 Pulse Rate [Apical] Respiratory Rate 20 20 18 Blood Pressure 117/74 114/75 114/75 Blood Pressure [Right Arm] Blood Pressure Mean 84 82 Blood Pressure Mean [Right Arm] Blood Pressure Source Automatic Cuff Blood Pressure Source [Right Arm] Blood Pressure Position Sitting Blood Pressure Position [Right Arm] 02 Sat by Pulse Oximetry Oxygen Delivery Method CPAP CPAP CPAP Oxygen Flow Rate (LPM) Lab Data Labs: Lab Results 12/15/23 06:32: VBG pH 7.31, VBG pCO2 44.6, VBG pO2 50.0 H, VBG HCO3 21.7 L, VBG Total CO2 23.1, VBG O2 Saturation 81.3 H, VBG Base Excess -4.6 L, VBG Lactic Acid 3.4 H 12/15/23 06:35: WBC 12.2 H, RBC 6.27 H, Hgb 16.5, Hct 51.7, MCV 82.4, MCH 26.3 L, MCHC 32.0, RDW 15.4, Plt Count 202, MPV 8.3, Neut % (Auto) 60.7, Lymph % (Auto) 29.1, [place] % (Auto) 5.5, Eos % (Auto) 3.3, Baso % (Auto) 1.4, Neut # (Auto) 7.4, Lymph # (Auto) 3.6, [place] # (Auto) 0.7, Eos # (Auto) 0.4, Baso # (Auto) 0.2, PT 10.5, INR 0.93, D-Dimer 0.49, Sodium 137, Potassium 5.9 H, Chloride 107, Carbon Dioxide 19 L, Anion Gap 16.9 H, BUN 27 H, Creatinine 1.20, Estimated Creat Clear 69, Estimated GFR 61, Est GFR ( Amer) 74, Glucose 213 H, Calcium 9.1, Magnesium 1.6, Total Bilirubin 1.1, AST 52, ALT 38, Alkaline Phosphatase 80, Troponin I 0.04 H, NT-Pro-B Natriuret Pep 1050 H, Total Protein 7.7, Albumin 4.6, Globulin 3.1, Albumin/Globulin Ratio 1.5 12/15/23 07:15: HIV 1&2 Antibody Rapid Nonreactive Response Orders (Tests/Meds): ED MEDICATIONS Generic Name Dose Route Start Last Admin Trade Name Freq PRN Reason Stop Dose Admin Aspirin 81 mg 12/15/23 13:15 12/15/23 13:18 Aspirin Ec 81mg Tablet PO 01/14/24 13:14 81 mg DAILY GREGORY Administration Atorvastatin Calcium 80 mg 12/15/23 21:00 Atorvastatin 40mg Tablet PO 01/14/24 20:59 HS GREGORY Empagliflozin 10 mg 12/15/23 13:15 12/15/23 13:18 Empagliflozin 10mg Tablet PO 01/14/24 13:14 10 mg DAILY GREGORY Administration Famotidine 20 mg 12/15/23 21:00 Famotidine 20mg Tablet PO 01/14/24 20:59 BID GREGORY Fentanyl Citrate 50 mcg 12/15/23 12:36 12/15/23 13:51 Fentanyl 100mcg/2ml Vial IV 12/16/23 00:36 75 mcg Q3MINP PRN Administration Sedation Fentanyl Citrate 25 mcg 12/15/23 12:36 Fentanyl 100mcg/2ml Vial IV 12/16/23 00:36 Q3MINP PRN Sedation Flumazenil 0.2 mg 12/15/23 12:36 Flumazenil 0.1mg/Ml 5ml Vial IV 12/16/23 00:36 NEEDED PRN Sedation Furosemide 80 mg 12/15/23 14:15 12/15/23 15:42 Furosemide 100mg/10ml Vial IV 01/14/24 14:14 Not Given Q8 [facility] Heparin Sodium (Porcine) 10,000 unit 12/15/23 12:36 Heparin 1,000 Units/Ml 10ml Vial (Storage Wharfage Clerk) IV 12/15/23 16:36 NEEDED PRN Emergency [employer] Grey Cloth Tender Hydralazine HCl 20 mg 12/15/23 12:36 Hydralazine 20mg/Ml Vial IV 12/15/23 16:36 ONCE PRN sbp>160 Nitroglycerin/Dextrose 250 mls @ 1.5 mls/hr 12/15/23 06:45 12/15/23 07:32 Nitroglycerin 50mg/250ml D5w IV 01/14/24 06:44 0 mcg/min .Q24H GREGORY 0 mls/hr Titration Protocol 5 MCG/MIN Adenosine 180 mg/ Sodium 90 mls @ 826.519 mls/hr 12/15/23 12:36 Chloride IV 12/15/23 16:36 ONCE PRN fractional flow reserve 180 MCG/KG/MIN Adenosine 90 mg/ Sodium 90 mls @ 1,653.037 mls/hr 12/15/23 12:36 Chloride IV 12/15/23 16:36 ONCE PRN fractional flow reserve 180 MCG/KG/MIN Sodium Chloride 1,000 mls @ 25 mls/hr 12/15/23 12:45 12/15/23 14:59 Sod Chloride 0.9% 500ml Bag IV 12/16/23 12:36 Not Given .Q25H GREGORY Labetalol HCl 20 mg 12/15/23 12:36 Labetalol 20mg/4ml Syringe IV 12/15/23 16:36 ONCE PRN sbp>160 Metoprolol Succinate 25 mg 12/15/23 13:15 12/15/23 13:18 Metoprolol Succinate Xl 25mg Tablet PO 01/14/24 13:14 25 mg DAILY GREGORY Administration Midazolam HCl 1 mg 12/15/23 12:36 Midazolam 2mg/2ml Vial IV 12/16/23 00:36 Q3MINP PRN Sedation Midazolam HCl 1 mg 12/15/23 12:36 12/15/23 13:50 Midazolam Hcl 1mg/Ml 5ml Vial IV 12/16/23 00:36 3 mg Q3MINP PRN Administration Sedation Naloxone HCl 0.4 mg 12/15/23 12:36 Naloxone 0.4mg/Ml Vial IV 12/16/23 00:36 Q5MINP PRN Decreased Respirations Nitroglycerin 800 mcg 12/15/23 12:36 Nitroglycerin 800mcg/8ml Syr (Storage Wharfage Clerk) IA 12/15/23 16:36 NEEDED PRN Emergency [employer]ing [employer] Tender Protamine Sulfate 50 mg 12/15/23 12:36 Protamine Sulfate 50mg/5ml Vial (Storage Wharfage Clerk) IV 12/15/23 16:36 ONCE PRN act>200 Sodium Chloride 10 ml 12/15/23 12:36 Sodium Chloride 0.9% 10ml Flush Syringe IV 01/14/24 12:35 NEEDED PRN Maintain IV Site Discontinued Medications Generic Name Dose Route Start Last Admin Trade Name Aria PRN Reason Stop Dose Admin Albuterol/Ipratropium 9 ml 12/15/23 06:35 12/15/23 06:42 Ipratropium/Albuterol 3 Ml Neb IH 12/15/23 06:36 9 ml ONCE ONE Administration Diphenhydramine HCl 50 mg 12/15/23 12:01 12/15/23 14:58 Diphenhydramine 50mg/Ml Vial IV 12/15/23 12:02 Not Given ONCE ONE Furosemide 40 mg 12/15/23 06:35 12/15/23 06:44 Furosemide 40mg/4ml Vial IV 12/15/23 06:36 40 mg ONCE ONE Administration Furosemide 40 mg 12/15/23 16:00 Furosemide 40mg/4ml Vial IV 01/14/24 15:59 BIDL GREGORY Heparin Sodium/Sodium Chloride 3,000 unit 12/15/23 12:36 12/15/23 13:37 Heparin 1,000 Units/500ml Ns (Storage Wharfage Clerk) IV 12/15/23 12:37 3,000 unit ONCE ONE Administration Iopamidol 50 ml 12/15/23 14:53 12/15/23 14:53 Iopamidol-370 (76%);100ml Bottle IV 12/15/23 14:54 50 ml ONCE ONE Administration Lidocaine HCl 20 ml 12/15/23 12:36 12/15/23 13:36 Lidocaine 1% 10ml Mdv IJ 12/15/23 12:37 10 ml ONCE ONE Administration Lidocaine HCl 20 ml 12/15/23 12:36 12/15/23 14:58 Lidocaine 1% 5ml Pf Vial IJ 12/15/23 12:37 Not Given ONCE ONE Verapamil HCl 2.5 mg 12/15/23 12:36 12/15/23 14:59 Verapamil 2.5mg/Ml 2ml Vial IV 12/15/23 12:37 Not Given ONCE ONE ORDERS Category Date Time Status XR chest portable Stat Exams 12/15/23 06:32 Completed Complete Blood Count Auto Diff Stat Lab 12/15/23 06:35 Completed Comprehensive Metabolic Panel Stat Lab 12/15/23 06:35 Completed D-Dimer Stat Lab 12/15/23 06:35 Completed HIV (1&2) Antibody Rapid Stat Lab 12/15/23 07:15 Completed Hep C Ab with Reflex to RNA Stat Lab 12/15/23 07:15 Received Magnesium Stat Lab 12/15/23 06:35 Completed NT Pro Brain Natriuretic Pep. Stat Lab 12/15/23 06:35 Completed PT/INR [Prothrombin Time INR] Stat Lab 12/15/23 06:35 Completed Troponin I Q3H Lab 12/15/23 09:50 Completed Troponin I Q3H Lab 12/15/23 13:00 Completed Troponin I Stat Lab 12/15/23 06:35 Completed Venous Blood Gas Stat RT 12/15/23 06:32 Completed MDM Narrative Medical Decision Narrative: In summary, this 63-year-old male with comorbidities as described in HPI presents to the emergency department today with acute onset shortness of breath. On initial evaluation patient is hypertensive, tachycardic, diaphoretic, ill-appearing, patient was obviously in respiratory distress with diminished breath sounds throughout as well as wheezing, no rhonchi or rales were appreciated, patient is obese and has obvious peripheral edema. He admits to poor compliance with his medications recently.. Differential diagnosis includes but is not limited to ACS, PE, flash pulmonary edema, medication noncompliance, fluid overload, electrolyte abnormality, kidney dysfunction. Based on these concerns, I ordered serum labs, cardiac workup, D-dimer, I performed [id number] bedside ultrasound. [id number] ultrasound demonstrated B-lines throughout the lung gutierrez as well as diminished left ventricular function, EF appears reduced but was not measured. Due to findings on initial vitals, exam, ultrasound, patient was started on furosemide, nitro drip, NIPPV. ECG personally interpreted demonstrates sinus tachycardia, frequent PVCs, rate 110, normal [place] and QTc, there is significant artifact however there does not appear to be STEMI, ECG will be repeated. Repeat ECG 30 minutes later demonstrates sinus rhythm with frequent PVCs, rate 90, normal axis, normal [place] and QTc, artifact is improved on this ECG and there does not appear to be STEMI. Labs personally reviewed demonstrate leukocytosis with WBC 12.2, no anemia, VBG with pH 7.31, no hypercarbia, patient does have elevated VBG lactic at 3.4, additional labs pending at the time of physician handoff. Chest x-ray personally interpreted does demonstrate findings concerning for pulmonary edema. Radiology read pending. Patient handed off to Dr. Weinberg for further management and disposition pending additional labs and radiology results. Dr. Weinberg's portion Upon my assumption of care, patient's D-dimer, troponin and BNP were pending. Patient's troponin resulted and was 0.04, BNP elevated at 1050, D-dimer negative. Patient was able to be weaned off of his nitroglycerin drip but continued to remain on CPAP. Blood pressure normalized. Patient had over 800 mL of urine output after 40 mg of IV Lasix. Agree with plan as above for admission as patient likely has acutely decompensation of his CHF and would benefit from a formal echocardiogram and continued diuresis. Discussions were had with Dr. Patton and they recommended admitting the patient to the stepdown unit as well as discussing the patient's case with cardiology. Patient sees Dr. Jerome. Spoke with Dr. Jerome who also agreed to evaluate the patient upon admission. At this time, patient was subsequently admitted and was in stable condition.
--- NOTE | 2023-12-15 07:00 | ECG_ITS ---
APPROVED REPORT Exam: Resting ECG HR:90 bpm ECG Measurements Heart Rate 90 AXES ID 158 P -11 QRSd 114 QRS -55 QT 373 T 78 QTc 421 Conclusion SINUS RHYTHM WITH FREQUENT VENTRICULAR PREMATURE COMPLEXES INFERIOR MYOCARDIAL INFARCTION , OF INDETERMINATE AGE [40+ ms Q WAVE AND/OR ST/T ABNORMALITY IN II/aVF] ANTEROLATERAL MYOCARDIAL INFARCTION , OF INDETERMINATE AGE [40+ ms Q WAVE IN I/aVL/V3-V6] No STEMI. Electronically signed by : NATALI VILLAGRAN, 12/16/2023 07:52:07
[2023-12-15 07:06] LABS: INR 0.93 (0.9-1.1); Prothrombin Time 10.5 seconds (10.1-12.5)
[2023-12-15 07:22] LABS: D-Dimer 0.49 ug/mL (0.0-0.5)
[2023-12-15 07:35] LABS: Albumin Level 4.6 g/dl (3.5-5.0); Chloride 107 mmol/L (98-107); Potassium 5.9 mmoL/L (3.5-5.1); Sodium 137 mmol/L (136-145)
[2023-12-15 07:37] LABS: Blood Urea Nitrogen 27 mg/dl (9-20); Creatinine Clearance Estimated 69 mL/min (50-200); Estimated Glomerular Filt Rate 61 ml/min (>60); GFR (African American) 74 ML/MIN (>60)
[2023-12-15 07:38] LABS: Alanine Aminotransferase 38 U/L (12-78); Albumin/Globulin Ratio 1.5 (1.1-1.8); Alkaline Phosphatase 80 U/L (38-126); Anion Gap 16.9 mEq/L (5-15); Aspartate Amino Transferase 52 U/L (17-59); Bilirubin,Total 1.1 mg/dl (0.2-1.3); Calcium 9.1 mg/dl (8.4-10.2); Carbon Dioxide 19 mmol/L (22.0-30.0); Globulin 3.1 g/dL (1.3-3.2); Glucose 213 mg/dl (74-100); Total Protein,Serum 7.7 g/dl (6.3-8.2)
[2023-12-15 07:39] LABS: Magnesium 1.6 mg/dl (1.6-2.3)
[2023-12-15 07:48] LABS: NT Pro Brain Natriuretic Pep. 1050 pg/mL (0-125)
[2023-12-15 07:50] LABS: Troponin I 0.04 ng/ml (0.00-0.034)
--- NOTE | 2023-12-15 08:00 | PC.NURSE ---
speaking to Dr. Patton
--- NOTE | 2023-12-15 08:00 | PC.NURSE ---
Had Dr Patton paged per Dr Weinberg to spek with him about this pt.
--- NOTE | 2023-12-15 08:01 | PC.NURSE ---
Dr Patton called back and is speaking with Dr Weinberg now
--- NOTE | 2023-12-15 08:05 | PC.NURSE ---
Had Cardiology paged per Dr Weinberg
--- NOTE | 2023-12-15 08:05 | PC.NURSE ---
notified house of the need for an admission bed
--- NOTE | 2023-12-15 08:21 | PC.NURSE ---
Report called to Sobia CARDOZA
--- NOTE | 2023-12-15 08:33 | HMH.PHAINT1 ---
Pharmacy Intervention Comments: MEDICATION RECONCILIATION COMPLETED ON PATIENT USING EXTERNAL FILL HISTORY FROM PHARMACY AND LIST FROM NEUROLOGY OFFICE. PER ED NOTE, PATIENT HAS MISSED MULTIPLE DOSES OF HOME MEDICATIONS. -OJRGE JOHNSOND
--- NOTE | 2023-12-15 08:51 | P.HP_ITS ---
History of Present Illness *Admission Date: 12/15/23 *Reason for visit:: SOA *History of present illness: 63-year-old male with history of CAD, CHF, hypertension, hyperlipidemia, diabetes presents to the ER with acute onset shortness of breath. Patient reports 1 hour ago he suddenly started feeling very short of breath. He also got sweaty. He stated his symptoms felt like his last heart attack, family brought him to the ER. Patient admits he has had a lot going on in his personal life and has missed multiple doses of his home medications including his Lasix and blood pressure medications. Patient reports he has not had fevers, chills, he does not report chest pain, he denies nausea, vomiting, abdominal pain, he does report increased swelling in the legs. He denies a history of COPD, does not smoke. No headache or dizziness. ROS otherwise negative. (above as per ER physician) The patient was evaluated in the ER and found to have CHF. He was started on Lasix and a nitro drip.. His chest x-ray showed pulmonary edema. His BNP was elevated. He was able to be weaned off of his nitroglycerin drip but did have to be placed on CPAP. He had significant diuresis with the IV Lasix. He was admitted for cardiology consult, further diuresis, and an echocardiogram. Of n ote, he states he has been off of his medications for over a month. [facility] Disclaimer: The information contained in this section may have been updated after the patient was seen, as this information can be updated by other users. Medical History (Updated 12/15/23 @ 11:22 by Taz Patton MD) History of left heart catheterization Congestive heart failure DM type 2 (diabetes mellitus, type 2) Non-STEMI (non-ST elevated myocardial infarction) Kidney stone History of chest pain History of heart attack Hyperlipidemia Hypertension Obstructive uropathy Acute renal failure Sinusitis Cellulitis AHUJA (dyspnea on exertion) Surgical History (Updated 12/15/23 @ 08:59 by CRYSTAL Yates) History of bowel resection History of lithotripsy History of tonsillectomy History of appendectomy Family History (Updated 10/26/23 @ 13:59 by Sara Jo) Other Alcoholism Cancer Coronary artery disease Diabetes Heart attack Hyperlipidemia Hypertension Stroke Social History Smoking Status: Never smoker alcohol intake: current alcohol intake frequency: holidays/special occasions only substance use type: denies use current occupational status: other Travel in the last 8 weeks: None household members: spouse housing: house caffeine: Yes Other Medical History Have you received the Flu Vaccine for this season: No Have you received the Pneumonia Vaccine: No Review of Systems Constitutional Constitutional: Denies body ache(s), Denies chills, Reports fatigue, Denies fever(s), Reports headache(s) and Reports weakness Eyes Eyes: Denies blurry vision and Denies diplopia ENT Ears, Nose, Mouth, and Throat: Reports headache(s), Denies nasal congestion and Reports vertigo *Cardiovascular Cardiovascular: Denies chest pain, Reports dyspnea, Reports leg edema and Reports pedal edema *Respiratory Respiratory: Reports cough, Reports dyspnea and Denies wheezing *Gastrointestinal Gastrointestinal: Denies loose stools, Denies nausea and Denies vomiting *Genitourinary Genitourinary: Denies difficulty urinating and Denies dysuria *Musculoskeletal Musculoskeletal: Denies arthralgias and Denies myalgias *Neurologic Neurologic: Reports headache(s), Reports vertigo and Reports weakness Endocrine Endocrine: Reports fatigue Allergic/Immunologic Allergic/Immunologic: Denies wheezing Meds Home Medications and Allergies Home Medications ?Medication ?Instructions ?Recorded ?Confirmed ?Type atorvastatin 80 mg tablet 80 mg PO HS 09/25/21 12/15/23 History metoprolol succinate 25 mg 1 tab PO DAILY 09/25/21 12/15/23 History tablet,extended release 24 hr allopurinol 300 mg tablet 300 mg PO DAILY 03/02/22 12/15/23 History aspirin 81 mg tablet,delayed 81 mg PO DAILY 03/02/22 12/15/23 History release potassium citrate 15 mEq (1,620 15 meq PO BID 03/02/22 12/15/23 History mg) tablet,extended release empagliflozin 25 mg tablet 25 mg PO DAILY 05/22/23 12/15/23 History (Jardiance) New Prescriptions to Start Prescriptions: Allergies Allergy/AdvReac Type Severity Reaction Status Date / Time No Known Allergies Allergy Verified 05/22/23 13:19 Exam Data for Last 24 hours Vital signs and Labs for Last 24 Hours: Temp Pulse Resp BP Pulse Ox O2 Del Method O2 Flow Rate 97.8 F 82 20 114/75 98 CPAP 30 12/15/23 06:31 12/15/23 07:41 12/15/23 08:40 12/15/23 08:40 12/15/23 08:10 12/15/23 08:40 12/15/23 06:45 FiO2 30 12/15/23 06:46 Laboratory Results - last 24 hr 12/15/23 06:32: VBG pH 7.31, VBG pCO2 44.6, VBG pO2 50.0 H, VBG HCO3 21.7 L, VBG Total CO2 23.1, VBG O2 Saturation 81.3 H, VBG Base Excess -4.6 L, VBG Lactic Acid 3.4 H 12/15/23 06:35: WBC 12.2 H, RBC 6.27 H, Hgb 16.5, Hct 51.7, MCV 82.4, MCH 26.3 L , MCHC 32.0, RDW 15.4, Plt Count 202, MPV 8.3, Neut % (Auto) 60.7, Lymph % (Auto) 29.1, [place] % (Auto) 5.5, Eos % (Auto) 3.3, Baso % (Auto) 1.4, Neut # (Auto) 7.4, Lymph # (Auto) 3.6, [place] # (Auto) 0.7, Eos # (Auto) 0.4, Baso # (Auto) 0.2, PT 10.5, INR 0.93, D-Dimer 0.49, Sodium 137, Potassium 5.9 H, Chloride 107, Carbon Dioxide 19 L, Anion Gap 16.9 H, BUN 27 H, Creatinine 1.20, Estimated Creat Clear 69, Estimated GFR 61, Est GFR ( Amer) 74, Glucose 213 H, Calcium 9.1, Magnesium 1.6, Total Bilirubin 1.1, AST 52, ALT 38, Alkaline Phosphatase 80, Troponin I 0.04 H, NT-Pro-B Natriuret Pep 1050 H, Total Protein 7.7, Albumin 4.6, Globulin 3.1, Albumin/Globulin Ratio 1.5 I & O for Last 24 hours: Intake & Output 12/12/23 12/13/23 12/14/23 12/15/23 11:59 11:59 11:59 11:59 Intake Total 1.125 / 1.125 Balance 1.125 / 1.125 Weight 330 lb Constitutional Constitutional: no acute distress *Routine HEENT Exam Head: Present normocephalic and atraumatic Eye: Present EOMI and PERRL ENT: Present mucous membranes dry *Routine Neck Exam Neck: Present supple and full ROM *Routine Respiratory Exam Respiratory: Present decreased breath sounds and CTA bilaterally (CPAP in place) *Routine Cardiovascular Exam Cardiovascular: Present RRR *Routine Abdominal Exam Abdominal: Present soft, normoactive bowel sounds and distended; Absent tenderne ss *Routine Rectal Exam Rectal:: deferred *Routine Genitalia Exam Genitalia:: deferred *Routine Extremities Exam Extremities: Present edema (2-3+ bilateral LE edema); Absent cyanosis or clubbing *Routine Skin Exam Skin: Present intact; Absent erythema *Routine Neurological Exam Neurological: Present alert and oriented X3 H&P: Result Impressions CXR 1. Pulmonary edema/CHF. 2. Cardiomegaly. Echo- pending Assessment and Plan *Assessment and plan (1) Acute hypoxic respiratory failure: Status: Acute Category: Medical Code(s): J96.01 - Acute respiratory failure with hypoxia (2) Severe hypertension: Status: Acute Category: Medical Code(s): I10 - Essential (primary) hypertension (3) Flash pulmonary edema: Status: Acute Category: Medical Code(s): J81.0 - Acute pulmonary edema (4) Obstructive sleep apnea hypopnea, severe: Problem Comment: Severe FIDELINA currently doing well on AutoPap 8/12 cm, ICodeConnect, Goldy, DME, nasal pillow mask Status: Chronic Category: Medical Code(s): G47.33 - Obstructive sleep apnea (adult) (pediatric) (5) Congestive heart failure: Status: Chronic Qualifiers: Heart failure chronicity: chronic Heart failure type: diastolic Qualified Code(s): I50.32 - Chronic diastolic (congestive) heart failure Category: Medical Code(s): I50.9 - Heart failure, unspecified (6) HTN (hypertension): Status: Chronic Qualifiers: Hypertension type: essential hypertension Qualified Code(s): I10 - Essential (primary) hypertension Category: Medical Code(s): I10 - Essential (primary) hypertension (7) HLD (hyperlipidemia): Status: Chronic Qualifiers: Hyperlipidemia type: mixed hyperlipidemia Qualified Code(s): E78.2 - Mixed hyperlipidemia Category: Medical Code(s): E78.5 - Hyperlipidemia, unspecified (8) DM type 2 (diabetes mellitus, type 2): Status: Chronic Qualifiers: Diabetes mellitus complication status: with other specified complication Diabetes mellitus termite treater helper insulin use: unspecified termite treater helper insulin use status Qualified Code(s): E11.69 - Type 2 diabetes mellitus with other specified complication Category: Medical Code(s): E11.9 - Type 2 diabetes mellitus without complications (9) Morbid obesity: Status: Chronic Category: Medical Code(s): E66.01 - Morbid (severe) obesity due to excess calories (10) CAD (coronary artery disease): Problem Comment: Non-STEMI Status: Chronic Qualifiers: Associated angina: without angina Coronary Disease-Associated Artery/Lesion type: habematolel artery [place] vs. transplanted heart: habematolel heart Qualified Code(s): I25.10 - Atherosclerotic heart disease of habematolel coronary artery without angina pectoris Category: Medical Code(s): I25.10 - Atherosclerotic heart disease of habematolel coronary artery without angina pectoris (11) Elevated troponin: Status: Acute Category: Medical Code(s): R79.89 - Other specified abnormal findings of blood chemistry (12) Non compliance w medication regimen: Status: Acute Category: Medical Code(s): Z91.148 - Patient's other noncompliance with medication regimen for other reason Plan The patient has been started on lasix and a CPAP. He is diuresing well. Cardiology has been consulted. Awaiting echo report. Will discuss further care with Dr. Patton. Dr. Patton entry - Saw patient, agree with above note. He has been weaned down to [place] oxygen, continue diuresis, BP has improved, check Echo, consult cardiology due to elevated troponin and history of CAD
--- NOTE | 2023-12-15 08:58 | PC.NURSE ---
arrived my stretcher from ED
[2023-12-15 10:18] LABS: Troponin I 0.13 ng/ml (0.00-0.034)
[2023-12-15 10:45] LABS: Reflex Lactic Add Lactic Reflex
--- NOTE | 2023-12-15 11:12 | CA_ITS ---
APPROVED REPORT EXAM: Comprehensive 2D, Doppler, and color-flow Echocardiogram Farm Contractor: PIEDAD Suh, RVS Ht: 6 ft 0 in Wt: 337lbs BSA: 2.66 BP: 114/75 mmHg Rhythm: PVC's Indications: Dyspnea, Volume overload, CHF, Flash pulmonary edema, CAD old AR, DM, HTN, HLD 2D Dimensions IVSd 1.34 cm M: 0.6-1.2 LVEF (Visual) 39.60 % PWd 1.22 cm M: 0.6 - 1.2 LVEF (Moe's) 36.90 % M: 52 - 72 LVDd 6.20 cm M: 4.2 - 5.9 LV Volume 259.70 mL M: 62 - 150 LVDs 4.98 cm M: 2.5 - 4.0 LV Volume Index 97.427608 mL/m2 M: 34 - 74 Aortic Root 3.49 cm M: 3.1 - 3.7 LA Volume 131.60 mL Left Atrium 4.95 cm M: 3.0 - 4.0 LA Volume Index 49.278768 mL/m2 (M/F) 16-34 RVID Base (AP4) 4.29 cm (M/F) 2.5-4.1 EF AP4 44.50 % LVOT 2.14 cm (M/F) 1.5-2.5 EF AP2 27.5 % EF BP 36.9 % GL Strain -14.0 % M-Mode Dimensions RVDd 2.66 cm (0.9-2.6) LVDd 6.20 cm (3.5-5.7) Ao Diam 4.47 cm (2.0-3.7) LVDs 4.69 cm (3.5-5.7) IVSd 1.38 cm (0.6-1.1) PWd 1.22 cm (0.6-1.1) EF (Teich) 51.80% EPSs 1.70 cm FS 24.70% EDV (Teich) 211.50 mL TAPSE 2.31 (<1.7) ESV (Teich) 101.90 mL LV Diastology E Decel Time 172 (160-240 msec) E/A Ratio 1.17 MED E' 5.0 (>= 7 cm/sec) MED A' 9.20 cm/s E'/MED E' Ratio 21.66 (<= 14) LAT E' 7.7 (>= 10 cm/sec) LAT A' 9.40 cm/s E/LAT E' Ratio 14.06 (<= 14) Aortic Valve LVOT Max 82.0 (70-110 cm/s) SCOTT Index 0.55 cm2/m2 LVOT VTI 14.73 cm AoV Peak Hans. 190.0 (50-130 cm/s) AO Peak GR. 13.00 mmHg AO Mean GR. 7.50 (<5 mmHg) AO VTI 36.0 (18-25 cm) SCOTT (VTI) 1.47 (2.5-4.5 cm2) Mitral Valve MV E Max Hans. 108.0 (40-130 cm/s) MV A Velocity 92.0 (40-130 cm/s) E/A Ratio 1.17 MV Decel. Time 172 (160-240 ms) MV Mean Gr. 1.50 (<2mmHg) Tricuspid Valve TR P. Velocity 190.00 cm/s RAP Estimate 10.00 mmHg RVSP 24.40 mmHg Left Ventricle The left ventricle is normal size. Left ventricular systolic function is moderate to severely decreased. There is increased LV wall thickness. There is severe hypokinesis of the basal septal, inferoseptal, and anteroseptal LV saunders. Diastolic function is indeterminate. LVEF is 30%. Right Ventricle The right ventricle is normal size. The right ventricular systolic function is normal. Atria Left atrium is moderately dilated. Right atrium is mildly dilated. There is no Doppler evidence of interatrial shunt. Aortic Valve The aortic valve is mildly thickened. There is no aortic valvular stenosis. Trace aortic regurgitation. Mitral Valve The mitral valve leaflets are mildly thickened. No evidence of mitral valve stenosis. Mild to moderate mitral regurgitation. Tricuspid Valve The tricuspid valve leaflets are thin and pliable. Trace tricuspid regurgitation. There is insufficient TR jet to estimate RVSP. Pulmonic Valve The pulmonary valve is normal in structure. Trace pulmonic regurgitation. The ascending aorta is not well-visualized. Great Vessels The aortic root is normal in size. IVC is normal in size and collapses >50% with inspiration. Pericardium There is no pericardial effusion. Other Information Study Quality: Technically Difficult Conclusion Technically difficult study due to poor acoustic windows. Moderate to severe reduction in LV systolic function (LVEF 30%). Severe hypokinesis of the basal septal, inferoseptal, and anteroseptal LV saunders. Biatrial dilation. Mild to moderate MR. In the setting of technically difficult study and difficulty visualizing the LV endocardial borders, future TTE evaluations are suggested with administration of ultrasound enhancing agent. Electronically signed by : Sonia Gutierrez MD 12/16/2023 22:32:42
[2023-12-15 11:34] LABS: HIV (1&2) Antibody Rapid NONREACTIVE (NONREACTIVE)
[2023-12-15 11:58] LABS: Lactic Acid Follow Up (RFLX 1) 2.1 mmol/L (0.7-2.1)
--- NOTE | 2023-12-15 13:06 | EXP.CARD.CON ---
History of Present Illness History of Present Illness Consult date: 12/15/23 Requesting physician: Taz Patton Consult reason: shortness of breath Chief complaint: SOA History of present illness: This is a 63-year-old white gentleman who presented to the emergency department complaints of shortness of breath. The patient has a past medical history of coronary artery disease, HFpEF, hypertension, hyperlipidemia and diabetes. The patient states that he woke up suddenly around 5 or 5:30 AM this morning with acute sudden onset of shortness of breath. He states that he got extremely diaphoretic as well. He states that these were the same symptoms he had last time when he had a heart attack which brought him to the emergency department. He denies any chest pain or pressure. He denies any lower extremity edema. He denies any fever, chills, nausea, vomiting or diarrhea. He denies any PND or orthopnea. He denies an associated cough with the shortness of breath. He states that it is worse with exertion and improves with rest. He does report that when he was given the IV Lasix in the emergency department his shortness of breath got better. It is still present even at rest but it is not as severe as it was when he first woke up this morning. The patient states that he has been having a lot of personal life issues and has not had any of his medications for approximately 1 month. [facility] Disclaimer: The information contained in this section may have been updated after the patient was seen, as this information can be updated by other users. Medical History (Updated 12/15/23 @ 13:15 by Nidia Devine APRN) PVCs (premature ventricular contractions) Hyperkalemia HFrEF (heart failure with reduced ejection fraction) Atypical angina Acute on chronic heart failure with preserved ejection fraction (HFpEF) History of left heart catheterization Congestive heart failure DM type 2 (diabetes mellitus, type 2) Non-STEMI (non-ST elevated myocardial infarction) Kidney stone History of chest pain History of heart attack Hyperlipidemia Hypertension Obstructive uropathy Acute renal failure Sinusitis Cellulitis AHUJA (dyspnea on exertion) Surgical History History of bowel resection History of lithotripsy History of tonsillectomy History of appendectomy Family History Other Alcoholism Cancer Coronary artery disease Diabetes Heart attack Hyperlipidemia Hypertension Stroke Social History (Updated 12/15/23 @ 12:37 by Anabel Xiao RN) Smoking Status: Never smoker alcohol intake: current alcohol intake frequency: holidays/special occasions only substance use type: denies use current occupational status: other Travel in the last 8 weeks: None adopted: No caregiver/support person: No household members: spouse, family and children housing: house lives independently: No marital status: number of children: 4 number of grandchildren: 13 education level: high school service: Yes ([employer]) status: retired branch: [employer] assisted: No current occupational exposures/hazards: No pets and animals: No diet: low salt well-balanced diet: about half the time caffeine: Yes high-fat food intake: 0-1 times daily daily servings fruits/ve-4 daily servings of milk/calcium: 0-1 eating out: 1-3 times/week reads food labels: seldom or never special maggie needs: No agree to transfusion: Yes helmet use: Yes helmet use: always drive intox or ride w/ intox 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 water heater temp set < 120 deg: Yes working smoke detector in home: Yes fire extinguisher in home: Yes carbon monox detector in home: Yes firearms in home: Yes firearms unloaded and locked: Yes do you feel safe at home: Yes victim of physical abuse: No victim of sexual abuse: No Review of Systems Review of Systems Review of systems:: pertinent systems reviewed and negative unless documented below Constitutional Constitutional: Reports headache(s) and Reports weakness Eyes Eyes: Reports system reviewed and no additional complaints, except as documented ENT Ears, Nose, Mouth, and Throat: Reports system reviewed and no additional complaints, except as documented, Reports headache(s) and Reports vertigo *Cardiovascular Cardiovascular: Reports system reviewed and no additional complaints, except as documented, Denies chest pain, Reports diaphoresis, Reports dyspnea, Reports dyspnea on exertion and Reports paroxysmal nocturnal dyspnea *Respiratory Respiratory: Reports system reviewed and no additional complaints, except as documented, Denies cough, Reports dyspnea and Reports dyspnea on exertion *Gastrointestinal Gastrointestinal: Reports system reviewed and no additional complaints, except as documented *Genitourinary Genitourinary: Reports system reviewed and no additional complaints, except as documented *Musculoskeletal Musculoskeletal: Reports system reviewed and no additional complaints, except as documented Integumentary/Breasts Skin/Breast: Reports system reviewed and no additional complaints, except as documented *Neurologic Neurologic: Reports headache(s), Reports vertigo and Reports weakness Psychiatric Psychiatric: Reports system reviewed and no additional complaints, except as documented Endocrine Endocrine: Reports system reviewed and no additional complaints, except as documented Hematologic/Lymphatic Hematologic/Lymphatic: Reports system reviewed and no additional complaints, except as documented Allergic/Immunologic Allergic/Immunologic: Reports system reviewed and no additional complaints, except as documented Exam Data for Last 24 hours Vital signs and Labs for Last 24 Hours: Temp Pulse Resp BP Pulse Ox O2 Del Method O2 Flow Rate 98.8 F 75 19 114/75 97 Nasal Cannula 3 12/15/23 09:11 12/15/23 09:11 12/15/23 09:11 12/15/23 09:11 12/15/23 09:11 12/15/23 11:00 12/15/23 11:00 FiO2 30 12/15/23 06:46 Laboratory Results - last 24 hr 12/15/23 06:32: VBG pH 7.31, VBG pCO2 44.6, VBG pO2 50.0 H, VBG HCO3 21.7 L, VBG Total CO2 23.1, VBG O2 Saturation 81.3 H, VBG Base Excess -4.6 L, VBG Lactic Acid 3.4 H 12/15/23 06:35: WBC 12.2 H, RBC 6.27 H, Hgb 16.5, Hct 51.7, MCV 82.4, MCH 26.3 L, MCHC 32.0, RDW 15.4, Plt Count 202, MPV 8.3, Neut % (Auto) 60.7, Lymph % (Auto) 29.1, [place] % (Auto) 5.5, Eos % (Auto) 3.3, Baso % (Auto) 1.4, Neut # (Auto) 7.4, Lymph # (Auto) 3.6, [place] # (Auto) 0.7, Eos # (Auto) 0.4, Baso # (Auto) 0.2, PT 10.5, INR 0.93, D-Dimer 0.49, Sodium 137, Potassium 5.9 H, Chloride 107, Carbon Dioxide 19 L, Anion Gap 16.9 H, BUN 27 H, Creatinine 1.20, Estimated Creat Clear 69, Estimated GFR 61, Est GFR ( Amer) 74, Glucose 213 H, Calcium 9.1, Magnesium 1.6, Total Bilirubin 1.1, AST 52, ALT 38, Alkaline Phosphatase 80, Troponin I 0.04 H, NT-Pro-B Natriuret Pep 1050 H, Total Protein 7.7, Albumin 4.6, Globulin 3.1, Albumin/Globulin Ratio 1.5 12/15/23 07:15: HIV 1&2 Antibody Rapid Nonreactive 12/15/23 09:50: Troponin I 0.13 H 12/15/23 11:23: Lactate 2.1 I & O for Last 24 hours: Intake & Output 12/12/23 12/13/23 12/14/23 12/15/23 23:59 23:59 23:59 23:59 Intake Total 1.125 / 1.125 Output Total 725 / 725 Balance -723.875 / -723.875 Weight 337 lb 7 oz Narrative: EKG is sinus rhythm with frequent PVCs and inferior MO pattern and anterior lateral MO pattern. Constitutional Constitutional: no acute distress and morbidly obese *Routine HEENT Exam Head: Present normocephalic and atraumatic ENT: Present mucous membranes moist *Routine Neck Exam Neck: Present supple, full ROM and normal carotid upstroke; Absent JVD, carotid bruit or lymphadenopathy *Routine Respiratory Exam Respiratory: Present CTA bilaterally, normal respiratory effort, able to speak in complete sentences and symmetric chest movement *Routine Cardiovascular Exam Cardiovascular: Present RRR, Normal S1 and Normal S2; Absent murmur or gallop *Routine Abdominal Exam Abdominal: Present soft and normoactive bowel sounds; Absent tenderness, distended or organomegaly *Routine Extremities Exam Extremities: Present full ROM, pulses intact and normal capillary refill; Absent cyanosis, clubbing or edema *Routine Skin Exam Skin: Present intact and warm; Absent erythema *Routine Neurological Exam Neurological: Present alert, oriented X3 and CN II-XII intact; Absent sensory deficit or motor deficit Routine Psychiatric Exam Psychiatric: Present normal affect Meds Home Medications and Allergies Home Medications ?Medication ?Instructions ?Recorded ?Confirmed ?Type atorvastatin 80 mg tablet 80 mg PO HS 09/25/21 12/15/23 History metoprolol succinate 25 mg 1 tab PO DAILY 09/25/21 12/15/23 History tablet,extended release 24 hr allopurinol 300 mg tablet 300 mg PO DAILY 03/02/22 12/15/23 History aspirin 81 mg tablet,delayed 81 mg PO DAILY 03/02/22 12/15/23 History release potassium citrate 15 mEq (1,620 15 meq PO BID 03/02/22 12/15/23 History mg) tablet,extended release empagliflozin 25 mg tablet 25 mg PO DAILY 05/22/23 12/15/23 History (Jardiance) New Prescriptions to Start Prescriptions: Allergies Allergy/AdvReac Type Severity Reaction Status Date / Time No Known Allergies Allergy Verified 05/22/23 13:19 Assessment and Plan *Assessment and plan (1) Non-STEMI (non-ST elevated myocardial infarction): Status: Resolved Category: Medical Code(s): I21.4 - Non-ST elevation (NSTEMI) myocardial infarction (2) HFrEF (heart failure with reduced ejection fraction): Status: Acute Category: Medical Code(s): I50.20 - Unspecified systolic (congestive) heart failure (3) CAD (coronary artery disease): Status: Chronic Qualifiers: Associated angina: with other forms of angina Coronary Disease-Associated Artery/Lesion type: [place] artery [place] vs. 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 insulin use: unspecified longterm insulin use status Qualified Code(s): E11.69 - Type 2 diabetes mellitus with other specified complication Category: Medical Code(s): E11.9 - Type 2 diabetes mellitus without complications (5) HTN (hypertension): Status: Chronic Qualifiers: Hypertension type: essential hypertension Qualified Code(s): I10 - Essential (primary) hypertension Category: Medical Code(s): I10 - Essential (primary) hypertension (6) HLD (hyperlipidemia): Status: Chronic Qualifiers: Hyperlipidemia type: mixed hyperlipidemia Qualified Code(s): E78.2 - Mixed hyperlipidemia Category: Medical Code(s): E78.5 - Hyperlipidemia, unspecified (7) Morbid obesity: Status: Chronic Category: Medical Code(s): E66.01 - Morbid (severe) obesity due to excess calories (8) Non compliance w medication regimen: Status: Acute Category: Medical Code(s): Z91.148 - Patient's other noncompliance with medication regimen for other reason (9) Elevated troponin: Status: Acute Category: Medical Code(s): R79.89 - Other specified abnormal findings of blood chemistry (10) Atypical angina: Status: Acute Category: Medical Code(s): I20.89 - Other forms of angina pectoris (11) Hyperkalemia: Status: Acute Category: Medical Code(s): E87.5 - Hyperkalemia (12) PVCs (premature ventricular contractions): Status: Acute Category: Medical Code(s): I49.3 - Ventricular premature depolarization Plan Plan: 1. The patient was admitted to the hospital with a non-STEMI and acute on chronic HFpEF. The patient does have an elevated troponin with a troponin max of 0.13. The patient has known coronary artery disease. Given his non-STEMI and atypical angina we will plan to proceed with left cardiac catheterization today to evaluate his coronary artery disease. 2. The patient has been educated the risk and benefits of proceeding with left cardiac catheterization. The patient verbalizes understanding and is agreeable in proceeding with the procedure. 3. The patient will be n.p.o. in preparation for left cardiac catheterization. 4. We will obtain an echocardiogram to evaluate his LV function due to known congestive heart failure and flash pulmonary edema. Preliminary echocardiogram shows an ejection fraction of 40 to 45% which is an interval decrease from around 50-55% in May 2022. Given his new onset HFrEF and cardiomyopathy will plan to proceed with left cardiac catheterization as mentioned above. 5. Continue aspirin 81 mg daily for his known coronary artery disease. 6. Start Toprol XL 25 mg p.o. daily for HFrEF and coronary artery disease. The patient is also having a lot of ventricular ectopy and the beta-jag will help with suppression of this ventricular ectopy as well. 7. The patient has HFrEF. His BNP is elevated. Will start him on Lasix 40 mg IV twice daily for diuresis. 8. Hold on spironolactone because he is hyperkalemic. If his hyperkalemia does not improve with diuresis, consider Kayexalate. 9. Continue Jardiance for HFrEF. 10. His blood pressure is on the lower side. Once his blood pressure has improved he will need to be started on Entresto 24/26 mg p.o. twice daily for HFrEF. 11. The patient is diabetic. Will defer management of his diabetes to his primary care provider. 12. Further recommendations were made pending the patient's response to treatment and the results of his left cardiac catheterization today. Thank you for the opportunity to help participate in the care of this patient. All recommendations and orders are per Dr. Gutierrez. Addendum: Left cardiac catheterization shows patent coronary artery disease. His LVEDP is 50 mmHg. LV gram shows an ejection fraction of 20%. Preliminary echocardiogram showed ejection fraction of 40 to 45%. Will await for the official read. The patient will need significant diuresis over the weekend. Will change his Lasix to 80 mg IV every 8 hours until he has a significant bump in his creatinine. Continue to hold spironolactone due to hyperkalemia. After the official read of his echocardiogram if his ejection fraction is less than 20% then a LifeVest will be ordered.
[2023-12-15] MEDS: ASPIRIN EC 81MG TABLET 81 MG PO (13:18)
[2023-12-15] MEDS: EMPAGLIFLOZIN 10MG TABLET 10 MG PO (13:18)
[2023-12-15] MEDS: METOPROLOL SUCCINATE XL 25MG TABLET 25 MG PO (13:18)
[2023-12-15 13:33] LABS: Troponin I 0.18 ng/ml (0.00-0.034)
[2023-12-15 13:33] LABS: Reflex Lactic (2 hrs) Add Lactic Reflex
[2023-12-15] MEDS: LIDOCAINE 1% 10ML MDV 20 ML IJ (13:36)
[2023-12-15] MEDS: HEPARIN 1,000 UNITS/500ML NS (CATH LAB) 3000 UNIT IV (13:37)
[2023-12-15] MEDS: MIDAZOLAM HCL 1MG/ML 5ML VIAL 1 MG IV (13:50)
[2023-12-15] MEDS: FENTANYL 100MCG/2ML VIAL 50 MCG IV (13:51)
[2023-12-15] MEDS: FUROSEMIDE 100MG/10ML VIAL 80 MG IV ×2 (14:05→20:11)
--- NOTE | 2023-12-15 14:52 | PC.NURSE ---
1320 pt left unit with Domenica CARDOZA in cath laboratory technician 1430 pt returned from cath laboratory technician
[2023-12-15] MEDS: IOPAMIDOL-370 (76%);100ML BOTTLE 50 ML IV (14:53)
[2023-12-15] MEDS: ATORVASTATIN 40MG TABLET 80 MG PO (20:08)
[2023-12-15] MEDS: FAMOTIDINE 20MG TABLET 20 MG PO (20:09)
[2023-12-16] VITALS (11 sets, daily range): BP systolic 102–140; BP diastolic 51–76; PULSE 60–78; RESP 14–19; TEMP 36.6–36.9; O2SAT 90–97
[2023-12-16] MEDS: FUROSEMIDE 100MG/10ML VIAL 80 MG IV ×3 (06:12→15:13)
[2023-12-16 07:19] LABS: Basophils # 0.1 K/mm3 (0-0.2); Basophils % 0.7 % (0.1-2.0); Eosinophils # 0.3 K/mm3 (0.0-0.4); Eosinophils % 2.4 % (0.1-12.0); Hematocrit 48.5 % (42.0-52.0); Hemoglobin 15.8 g/dL (14.1-18.0); Lymphocytes # 1.8 K/mm3 (0.7-4.5); Mean Corpuscular HGB Conc 32.5 g/dL (31.8-35.4); Mean Corpuscular Hemoglobin 26.3 pg (27.0-31.2); Mean Platelet Volume 7.5 fl (7.4-10.4); Monocytes # 0.7 K/mm3 (0.1-1.0); Monocytes % 6.9 % (1.7-9.3); Neutrophils # 7.8 K/mm3 (1.8-7.8); Platelet Count 185 K/mm3 (142-424); Red Blood Count 5.99 M/mm3 (4.60-6.20); Red Cell Distribution Width 15.3 % (11.5-17.5); White Blood Count 10.7 K/mm3 (4.8-10.8)
[2023-12-16 07:24] LABS: Chloride 103 mmol/L (98-107)
[2023-12-16 07:25] LABS: Chloride 103 mmol/L (98-107); Potassium 3.9 mmoL/L (3.5-5.1); Sodium 138 mmol/L (136-145)
[2023-12-16 07:27] LABS: Alanine Aminotransferase 39 U/L (12-78); Alkaline Phosphatase 88 U/L (38-126); Anion Gap 12.9 mEq/L (5-15); Aspartate Amino Transferase 31 U/L (17-59); Bilirubin,Indirect 0.8 mg/dL (0.0-0.9); Bilirubin,Total 0.8 mg/dl (0.2-1.3); Bilirubin,Unconjugated 0.7 mg/dL (0.0-1.1); Blood Urea Nitrogen 32 mg/dl (9-20); Carbon Dioxide 26 mmol/L (22.0-30.0); Cholesterol 180 mg/dl (140-200); Creatinine Clearance Estimated 55 mL/min (50-200); Estimated Glomerular Filt Rate 47 ml/min (>60); GFR (African American) 57 ML/MIN (>60); Glucose 176 mg/dl (74-100); Total Protein,Serum 6.8 g/dl (6.3-8.2); Triglycerides 284 mg/dl (30-150); VLDL Cholesterol 57 mg/dL (0-40)
[2023-12-16 07:28] LABS: Alanine Aminotransferase 40 U/L (12-78); Albumin/Globulin Ratio 1.5 (1.1-1.8); Alkaline Phosphatase 89 U/L (38-126); Aspartate Amino Transferase 32 U/L (17-59); Bilirubin,Total 0.8 mg/dl (0.2-1.3); Blood Urea Nitrogen 31 mg/dl (9-20); Carbon Dioxide 26 mmol/L (22.0-30.0); Creatinine Clearance Estimated 55 mL/min (50-200); Estimated Glomerular Filt Rate 47 ml/min (>60); GFR (African American) 57 ML/MIN (>60); Globulin 2.7 g/dL (1.3-3.2); HDL Cholesterol 28 mg/dl (40-60); Total Protein,Serum 6.7 g/dl (6.3-8.2)
[2023-12-16 07:29] LABS: Calcium 8.9 mg/dl (8.4-10.2); Glucose 176 mg/dl (74-100)
[2023-12-16 07:30] LABS: Chol/HDL Ratio 6.4 (1-3.5)
[2023-12-16 07:38] LABS: Direct LDL Cholesterol 109.19 mg/dL (100-129)
[2023-12-16] MEDS: FAMOTIDINE 20MG TABLET 20 MG PO ×2 (08:06→20:56)
[2023-12-16] MEDS: METOPROLOL SUCCINATE XL 25MG TABLET 25 MG PO (08:06)
[2023-12-16] MEDS: ASPIRIN EC 81MG TABLET 81 MG PO (08:06)
[2023-12-16] MEDS: EMPAGLIFLOZIN 10MG TABLET 10 MG PO (08:06)
[2023-12-16 08:21] LABS: Anion Gap 12.9 mEq/L (5-15); Potassium 3.9 mmoL/L (3.5-5.1)
[2023-12-16 08:51] LABS: HCV Ab Non Reactive (Non Reactive)
--- NOTE | 2023-12-16 08:52 | P.PN_ITS ---
Subjective *Date: 12/16/23 *Time: 08:52 Interval history: Patient feels better today, breathing has improved. He has urinated a large amount after receiving IV Lasix. Medical Exam Vital signs and Labs for Last 24 Hours: Vital Signs Temp Pulse Pulse Resp BP BP BP 12/16/23 08:00 97.9 F 12/16/23 08:00 78 18 112/65 12/16/23 07:50 78 12/16/23 06:00 70 17 108/64 L 12/16/23 04:00 70 12/16/23 04:00 98.3 F 65 14 105/51 L 12/16/23 02:00 65 18 102/62 L 12/16/23 00:00 70 12/16/23 00:00 98.1 F 61 17 104/53 L 12/15/23 22:36 70 12/15/23 22:00 71 17 110/77 12/15/23 20:00 98.1 F 83 16 127/70 12/15/23 19:31 18 12/15/23 19:00 12/15/23 18:15 72 18 138/83 12/15/23 17:49 98.2 F 12/15/23 17:15 65 18 129/71 12/15/23 17:00 12/15/23 16:45 55 L 18 118/79 12/15/23 16:30 54 L 18 113/76 12/15/23 16:17 78 18 106/71 L 12/15/23 16:02 97.8 F 72 18 122/71 12/15/23 16:00 70 12/15/23 16:00 97.8 F 72 18 122/71 12/15/23 15:47 71 16 112/65 12/15/23 15:30 83 18 112/61 12/15/23 15:15 69 18 112/61 12/15/23 15:00 74 16 105/71 L 12/15/23 14:54 12/15/23 14:45 61 16 111/71 12/15/23 14:40 61 12/15/23 14:30 98.5 F 71 16 113/70 12/15/23 14:15 63 20 131/81 12/15/23 14:10 67 20 152/84 H 12/15/23 14:05 69 20 143/92 H 12/15/23 14:02 70 75 20 150/90 H 12/15/23 13:15 12/15/23 12:00 75 12/15/23 11:00 12/15/23 09:11 98.8 F 75 19 114/75 12/15/23 09:10 12/15/23 09:09 72 12/15/23 09:09 65 12/15/23 09:03 98.0 F 82 18 114/75 Pulse Ox O2 Del Method O2 Flow Rate 12/16/23 08:00 12/16/23 08:00 94 L Room Air 12/16/23 07:50 94 L Room Air 12/16/23 06:00 95 Room Air 12/16/23 04:00 12/16/23 04:00 90 L Room Air, CPAP 12/16/23 02:00 91 L Room Air, CPAP 12/16/23 00:00 12/16/23 00:00 94 L Room Air, CPAP 12/15/23 22:36 12/15/23 22:00 95 Room Air 12/15/23 20:00 94 L Room Air 12/15/23 19:31 91 L Nasal Cannula 2 12/15/23 19:00 Room Air 12/15/23 18:15 100 Nasal Cannula 2 12/15/23 17:49 12/15/23 17:15 97 Nasal Cannula 2 12/15/23 17:00 Nasal Cannula 12/15/23 16:45 94 L Room Air 12/15/23 16:30 93 L Room Air 12/15/23 16:17 97 Room Air 12/15/23 16:02 97 Nasal Cannula 2 12/15/23 16:00 12/15/23 16:00 97 Nasal Cannula 2 12/15/23 15:47 99 Nasal Cannula 2 12/15/23 15:30 98 Nasal Cannula 2 12/15/23 15:15 96 Nasal Cannula 3 12/15/23 15:00 98 Nasal Cannula 3 12/15/23 14:54 Nasal Cannula 3 12/15/23 14:45 98 Nasal Cannula 3 12/15/23 14:40 96 Nasal Cannula 3 12/15/23 14:30 94 L Nasal Cannula 3 12/15/23 14:15 95 Nasal Cannula 12/15/23 14:10 95 Nasal Cannula 12/15/23 14:05 93 L Nasal Cannula 12/15/23 14:02 90 L Room Air 12/15/23 13:15 Nasal Cannula 3 12/15/23 12:00 12/15/23 11:00 Nasal Cannula 3 12/15/23 09:11 97 Room Air 12/15/23 09:10 Nasal Cannula 3 12/15/23 09:09 96 Nasal Cannula 3 12/15/23 09:09 12/15/23 09:03 CPAP Intake and Output 12/15/23 12/16/23 12/16/23 23:59 07:59 15:59 Intake Total 760 / 1161.125 400 / 640 240 / 640 Output Total 2851 / 6326 3200 / 3200 Balance -2091 / -5164.875 -2800 / -2560 240 / -2560 Intake: Intake, Oral Amount 760 / 1160 400 / 640 240 / 640 Output: Output, Urine Amount 2851 / 6326 3200 / 3200 Other: Number of Voids 1 1 Number of Unmeasured Voids 1 Laboratory Results - last 24 hr 12/15/23 07:15: Hepatitis C Antibody Non reactive, HIV 1&2 Antibody Rapid Nonreactive 12/15/23 09:50: Troponin I 0.13 H 12/15/23 11:23: Lactate 2.1 12/15/23 13:00: Troponin I 0.18 H 12/15/23 15:41: Lactate 2.0 12/16/23 06:52: WBC 10.7, RBC 5.99, Hgb 15.8, Hct 48.5, MCV 81.0, MCH 26.3 L, MCHC 32.5, RDW 15.3, Plt Count 185, MPV 7.5, Neut % (Auto) 73.0, Lymph % (Auto) 17.0, [place] % (Auto) 6.9, Eos % (Auto) 2.4, Baso % (Auto) 0.7, Neut # (Auto) 7.8, Lymph # (Auto) 1.8, [place] # (Auto) 0.7, Eos # (Auto) 0.3, Baso # (Auto) 0.1, Sodium 138 12/16/23 06:52: Sodium 138, Potassium 3.9 D 12/16/23 06:52: Potassium 3.9, Chloride 103 12/16/23 06:52: Chloride 103, Carbon Dioxide 26 12/16/23 06:52: Carbon Dioxide 26, Anion Gap 12.9 12/16/23 06:52: Anion Gap 12.9, BUN 32 H 12/16/23 06:52: BUN 31 H, Creatinine 1.50 H D 12/16/23 06:52: Creatinine 1.50 H, Estimated Creat Clear 55 12/16/23 06:52: Estimated Creat Clear 55, Estimated GFR 47 L 12/16/23 06:52: Estimated GFR 47 L, Est GFR ( Amer) 57 L D 12/16/23 06:52: Est GFR ( Amer) 57 L, Glucose 176 H 12/16/23 06:52: Glucose 176 H, Calcium 9.0 12/16/23 06:52: Calcium 8.9, Total Bilirubin 0.8 12/16/23 06:52: Total Bilirubin 0.8, Direct Bilirubin 0.0, Conjugated Bilirubin 0.0, Indirect Bilirubin 0.8, Unconjugated Bilirubin 0.7, AST 31 D 12/16/23 06:52: AST 32, ALT 39 12/16/23 06:52: ALT 40, Alkaline Phosphatase 88 12/16/23 06:52: Alkaline Phosphatase 89, Total Protein 6.8 12/16/23 06:52: Total Protein 6.7, Albumin 4.0 D 12/16/23 06:52: Albumin 4.0, Globulin 2.7, Albumin/Globulin Ratio 1.5, Triglycerides 284 H, Cholesterol 180, LDL Cholesterol Direct 109.19, VLDL Cholesterol 57 H, HDL Cholesterol 28 L, Cholesterol/HDL Ratio 6.4 H I & O for Labs for Last 24 Hours: Intake & Output 12/13/23 12/14/23 12/15/23 12/16/23 23:59 23:59 23:59 23:59 Intake Total 761.125 / 1161.125 640 / 640 Output Total 4226 / 6326 3200 / 3200 Balance -3464.875 / -5164.875 -2560 / -2560 Weight 337 lb 7 oz Constitutional: Present no acute distress Respiratory: Present normal respiratory effort Cardiac: Present Reg Rate and Rhythm GI: Present normal bowel sounds; Absent tenderness Extremities: Present normal inspection, full ROM and edema (1 + bilateral legs) Skin: Present intact; Absent erythema Comment:: several small superficial wounds on legs with excoriations Neuro: Present Grossly Intact and moves all extremities Assessment and Plan *Assessment and plan (1) Acute hypoxic respiratory failure: Status: Acute Category: Medical Code(s): J96.01 - Acute respiratory failure with hypoxia (2) Severe hypertension: Status: Acute Category: Medical Code(s): I10 - Essential (primary) hypertension (3) Flash pulmonary edema: Status: Acute Category: Medical Code(s): J81.0 - Acute pulmonary edema (4) Obstructive sleep apnea hypopnea, severe: Problem Comment: Severe FIDELINA currently doing well on AutoPap 8/12 cm, ICodeConnect, Goldy, DME, nasal pillow mask Status: Chronic Category: Medical Code(s): G47.33 - Obstructive sleep apnea (adult) (pediatric) (5) Congestive heart failure: Status: Chronic Qualifiers: Heart failure chronicity: chronic Heart failure type: diastolic Qualified Code(s): I50.32 - Chronic diastolic (congestive) heart failure Category: Medical Code(s): I50.9 - Heart failure, unspecified (6) HTN (hypertension): Status: Chronic Qualifiers: Hypertension type: essential hypertension Qualified Code(s): I10 - E ssential (primary) hypertension Category: Medical Code(s): I10 - Essential (primary) hypertension (7) HLD (hyperlipidemia): Status: Chronic Qualifiers: Hyperlipidemia type: mixed hyperlipidemia Qualified Code(s): E78.2 - Mixed hyperlipidemia Category: Medical Code(s): E78.5 - Hyperlipidemia, unspecified (8) DM type 2 (diabetes mellitus, type 2): Status: Chronic Qualifiers: Diabetes mellitus intermediate card tender insulin use: unspecified intermediate card tender insulin use status Diabetes mellitus complication status: with other specified co mplication Qualified Code(s): E11.69 - Type 2 diabetes mellitus with other specified complication Category: Medical Code(s): E11.9 - Type 2 diabetes mellitus without complications (9) Morbid obesity: Status: Chronic Category: Medical Code(s): E66.01 - Morbid (severe) obesity due to excess calories (10) CAD (coronary artery disease): Status: Chronic Qualifiers: Coronary Disease-Associated Artery/Lesion type: [place] artery [place] vs. transplanted heart: [place] heart Associated angina: with other forms of angina Qualified Code(s): I25.118 - Atherosclerotic heart disease of [place] coronary artery with other forms of angina pectoris Category: Medical Code(s): I25.10 - Atherosclerotic heart disease of [place] coronary artery without angina pectoris (11) Elevated troponin: Status: Acute Category: Medical Code(s): R79.89 - Other specified abnormal findings of blood chemistry (12) Non compliance w medication regimen: Status: Acute Category: Medical Code(s): Z91.148 - Patient's other noncompliance with medication regimen for other reason (13) PVCs (premature ventricular contractions): Status: Acute Category: Medical Code(s): I49.3 - Ventricular premature depolarization (14) HFrEF (heart failure with reduced ejection fraction): Status: Acute Category: Medical Code(s): I50.20 - Unspecified systolic (congestive) heart failure (15) Atypical angina: Status: Acute Category: Medical Code(s): I20.89 - Other forms of angina pectoris (16) Acute on chronic heart failure with preserved ejection fraction (HFpEF): Status: Acute Category: Medical Code(s): I50.33 - Acute on chronic diastolic (congestive) heart failure (17) Non-STEMI (non-ST elevated myocardial infarction): Status: Resolved Category: Medical Code(s): I21.4 - Non-ST elevation (NSTEMI) myocardial infarction Plan Patient has had 7.5 liters of urine output since admission. Left heart cath report reviewed. EF is low LV pressures are elevated, Echo report is pending. Continue diuresis, OK to move out of step down.
[2023-12-16] MEDS: POTASSIUM CHLORIDE 20MEQ TAB 20 MEQ PO (09:59)
[2023-12-16] MEDS: humaLOG 100 UNITS/ML 10ML VIAL (SSI) SUBCUT ×2 (10:56→16:21)
[2023-12-16 16:19] LABS: POC Glucose,Bedside 151 (70-110)
--- NOTE | 2023-12-16 18:04 | PC.NURSE ---
pt a&ox4. sitting up to the chair. pt has ambulated both around the room and in the hallway this shift. pt also showered independently and tolerated well. tolerating room air with sats >90%. no complaints of pain this shift. radial site is c/d/i. call light within reach.
[2023-12-16] MEDS: ENOXAPARIN 40MG/0.4ML SYRINGE 40 MG SUBCUT (20:55)
[2023-12-16] MEDS: ATORVASTATIN 40MG TABLET 80 MG PO (20:56)
[2023-12-16 20:57] LABS: POC Glucose,Bedside 141 (70-110)
[2023-12-17] VITALS (8 sets, daily range): BP systolic 115–144; BP diastolic 52–90; PULSE 46–81; RESP 15–18; TEMP 36.3–36.8; O2SAT 93–99; BMI 45.7
[2023-12-17 06:31] LABS: POC Glucose,Bedside 152 (70-110)
[2023-12-17 07:18] LABS: Chloride 99 mmol/L (98-107); Potassium 4.1 mmoL/L (3.5-5.1); Sodium 138 mmol/L (136-145)
[2023-12-17 07:21] LABS: Anion Gap 12.1 mEq/L (5-15); Blood Urea Nitrogen 41 mg/dl (9-20); Calcium 9.2 mg/dl (8.4-10.2); Carbon Dioxide 31 mmol/L (22.0-30.0); Creatinine Clearance Estimated 49 mL/min (50-200); Estimated Glomerular Filt Rate 41 ml/min (>60); GFR (African American) 50 ML/MIN (>60); Glucose 161 mg/dl (74-100)
[2023-12-17 07:26] LABS: Basophils # 0.1 K/mm3 (0-0.2); Basophils % 0.6 % (0.1-2.0); Eosinophils # 0.3 K/mm3 (0.0-0.4); Eosinophils % 2.7 % (0.1-12.0); Hematocrit 48.2 % (42.0-52.0); Hemoglobin 15.8 g/dL (14.1-18.0); Lymphocytes # 2.4 K/mm3 (0.7-4.5); Lymphocytes % 22.8 % (10-50); Mean Corpuscular HGB Conc 32.8 g/dL (31.8-35.4); Mean Corpuscular Hemoglobin 26.3 pg (27.0-31.2); Mean Corpuscular Volume 80.1 fl (80-94); Mean Platelet Volume 7.5 fl (7.4-10.4); Monocytes # 0.7 K/mm3 (0.1-1.0); Monocytes % 7.2 % (1.7-9.3); Neutrophils # 6.9 K/mm3 (1.8-7.8); Neutrophils % 66.6 % (37.0-80.0); Platelet Count 168 K/mm3 (142-424); Red Blood Count 6.01 M/mm3 (4.60-6.20); Red Cell Distribution Width 15.3 % (11.5-17.5); White Blood Count 10.3 K/mm3 (4.8-10.8)
[2023-12-17] MEDS: ASPIRIN EC 81MG TABLET 81 MG PO (08:24)
[2023-12-17] MEDS: POTASSIUM CHLORIDE 20MEQ TAB 20 MEQ PO (08:24)
[2023-12-17] MEDS: EMPAGLIFLOZIN 10MG TABLET 10 MG PO (08:24)
[2023-12-17] MEDS: FAMOTIDINE 20MG TABLET 20 MG PO ×2 (08:24→20:19)
[2023-12-17] MEDS: FUROSEMIDE 100MG/10ML VIAL 80 MG IV (08:25)
--- NOTE | 2023-12-17 08:46 | EXP.ACUTE.PN ---
Subjective *Date: 12/17/23 *Time: 08:49 Interval history: Patient feels better today Medical Exam Vital signs and Labs for Last 24 Hours: Vital Signs Temp Pulse Pulse Resp BP Pulse Ox O2 Del Method 12/17/23 08:00 97.7 F 48 L 15 143/76 H 96 Room Air 12/17/23 07:41 Room Air 12/17/23 06:41 Room Air 12/17/23 05:00 Room Air 12/17/23 04:00 60 12/17/23 04:00 97.5 F L 61 16 115/68 93 L CPAP 12/17/23 03:00 Room Air 12/17/23 01:00 Room Air 12/17/23 00:00 98.2 F 81 18 120/60 94 L Room Air 12/17/23 00:00 60 12/16/23 23:00 Room Air 12/16/23 21:00 Room Air 12/16/23 20:55 Room Air 12/16/23 20:00 98.5 F 61 16 137/75 97 Room Air 12/16/23 18:40 Room Air 12/16/23 17:00 Room Air 12/16/23 16:00 70 12/16/23 15:33 98.4 F 65 19 140/76 94 L 12/16/23 15:00 Room Air 12/16/23 13:00 Room Air 12/16/23 12:09 60 12/16/23 12:00 97.8 F 63 19 109/71 L 93 L Room Air 12/16/23 11:00 Room Air 12/16/23 09:00 Room Air Intake and Output 12/16/23 12/17/23 12/17/23 23:59 07:59 15:59 Intake Total 400 / 1310 Output Total 1750 / 6600 400 / 400 Balance -1350 / -5290 -400 / -400 Intake: Intake, Oral Amount 400 / 1310 Output: Output, Urine Amount 1750 / 6600 400 / 400 Other: Number of Unmeasured Voids 0 Weight 337 lb 9.325 oz Patient Weight 12/17/23 23:59 Weight 337 lb 9.325 oz Laboratory Results - last 24 hr 12/15/23 07:15: Hepatitis C Antibody Non reactive 12/16/23 16:10: POC Glucose 151 H 12/16/23 20:49: POC Glucose 141 H 12/17/23 06:00: WBC 10.3, RBC 6.01, Hgb 15.8, Hct 48.2, MCV 80.1, MCH 26.3 L, MCHC 32.8, RDW 15.3, Plt Count 168, MPV 7.5, Neut % (Auto) 66.6, Lymph % (Auto) 22.8, [place] % (Auto) 7.2, Eos % (Auto) 2.7, Baso % (Auto) 0.6, Neut # (Auto) 6.9, Lymph # (Auto) 2.4, [place] # (Auto) 0.7, Eos # (Auto) 0.3, Baso # (Auto) 0.1, Sodium 138, Potassium 4.1, Chloride 99, Carbon Dioxide 31 H, Anion Gap 12.1, BUN 41 H D, Creatinine 1.70 H, Estimated Creat Clear 49, Estimated GFR 41 L, Est GFR ( Amer) 50 L, Glucose 161 H, Calcium 9.2 12/17/23 06:23: POC Glucose 152 H I & O for Labs for Last 24 Hours: Intake & Output 12/14/23 12/15/23 12/16/23 12/17/23 23:59 23:59 23:59 23:59 Intake Total 761.125 / 4395.310 8954 / 1310 Output Total 4226 / 6326 6600 / 6600 400 / 400 Balance -3464.875 / -5164.875 -5290 / -5290 -400 / -400 Weight 337 lb 7 oz 337 lb 9.325 oz Constitutional: Present no acute distress Respiratory: Present normal respiratory effort Cardiac: Present Reg Rate and Rhythm GI: Present normal bowel sounds; Absent tenderness Extremities: Present normal inspection, full ROM and edema (1 + bilateral legs) Skin: Present intact; Absent erythema Comment:: several small superficial wounds on legs with excoriations Neuro: Present Grossly Intact and moves all extremities Assessment and Plan *Assessment and plan (1) Acute hypoxic respiratory failure: Status: Acute Category: Medical Code(s): J96.01 - Acute respiratory failure with hypoxia (2) Severe hypertension: Status: Acute Category: Medical Code(s): I10 - Essential (primary) hypertension (3) Flash pulmonary edema: Status: Acute Category: Medical Code(s): J81.0 - Acute pulmonary edema (4) Obstructive sleep apnea hypopnea, severe: Problem Comment: Severe FIDELINA currently doing well on AutoPap 8/12 cm, ICodeConnect, Goldy, DME, nasal pillow mask Status: Chronic Category: Medical Code(s): G47.33 - Obstructive sleep apnea (adult) (pediatric) (5) Congestive heart failure: Status: Chronic Qualifiers: Heart failure chronicity: chronic Heart failure type: diastolic Qualified Code(s): I50.32 - Chronic diastolic (congestive) heart failure Category: Medical Code(s): I50.9 - Heart failure, unspecified (6) HTN (hypertension): Status: Chronic Qualifiers: Hypertension type: essential hypertension Qualified Code(s): I10 - Essential (primary) hypertension Category: Medical Code(s): I10 - Essential (primary) hypertension (7) HLD (hyperlipidemia): Status: Chronic Qualifiers: Hyperlipidemia type: mixed hyperlipidemia Qualified Code(s): E78.2 - Mixed hyperlipidemia Category: Medical Code(s): E78.5 - Hyperlipidemia, unspecified (8) DM type 2 (diabetes mellitus, type 2): Status: Chronic Qualifiers: Diabetes mellitus supervisor intermediates insulin use: unspecified usp insulin use status Diabetes mellitus complication status: with other specified complication Qualified Code(s): E11.69 - Type 2 diabetes mellitus with other specified complication Category: Medical Code(s): E11.9 - Type 2 diabetes mellitus without complications (9) Morbid obesity: Status: Chronic Category: Medical Code(s): E66.01 - Morbid (severe) obesity due to excess calories (10) CAD (coronary artery disease): Status: Chronic Qualifiers: Coronary Disease-Associated Artery/Lesion type: [place] artery [place] vs. transplanted heart: [place] heart Associated angina: with other forms of angina Qualified Code(s): I25.118 - Atherosclerotic heart disease of [place] coronary artery with other forms of angina pectoris Category: Medical Code(s): I25.10 - Atherosclerotic heart disease of [place] coronary artery without angina pectoris (11) Elevated troponin: Status: Acute Category: Medical Code(s): R79.89 - Other specified abnormal findings of blood chemistry (12) Non compliance w medication regimen: Status: Acute Category: Medical Code(s): Z91.148 - Patient's other noncompliance with medication regimen for other reason (13) PVCs (premature ventricular contractions): Status: Acute Category: Medical Code(s): I49.3 - Ventricular premature depolarization (14) HFrEF (heart failure with reduced ejection fraction): Status: Acute Category: Medical Code(s): I50.20 - Unspecified systolic (congestive) heart failure (15) Atypical angina: Status: Acute Category: Medical Code(s): I20.89 - Other forms of angina pectoris (16) Acute on chronic heart failure with preserved ejection fraction (HFpEF): Status: Acute Category: Medical Code(s): I50.33 - Acute on chronic diastolic (congestive) heart failure (17) Non-STEMI (non-ST elevated myocardial infarction): Status: Resolved Category: Medical Code(s): I21.4 - Non-ST elevation (NSTEMI) myocardial infarction Plan Patient is improving everyday with diuresis, Echo shows EF of 30%, eGFR is trending down, will decrease Lasix dose today. Recheck labs tomorrow.
[2023-12-17 11:08] LABS: POC Glucose,Bedside 168 (70-110)
[2023-12-17] MEDS: FUROSEMIDE 40MG/4ML VIAL 40 MG IV (15:49)
[2023-12-17 16:03] LABS: POC Glucose,Bedside 174 (70-110)
--- NOTE | 2023-12-17 16:22 | PC.NURSE ---
pt is sitting up in the chair. alert and oriented x4. pt has ambulated in the laurent and outside with staff. eating and drinking well. lung sounds diminished. 1+ edema noted to ble. abdomen soft/non tender with active bowel sounds. pt stated his last bowel movement was yesterday. will continue to monitor.
[2023-12-17] MEDS: ATORVASTATIN 40MG TABLET 80 MG PO (20:19)
[2023-12-17 20:20] LABS: POC Glucose,Bedside 196 (70-110)
[2023-12-17] MEDS: humaLOG 100 UNITS/ML 10ML VIAL (SSI) SUBCUT (20:20)
[2023-12-18] VITALS: BP 145/60; PULSE 65; PULSE 70; RESP 18; TEMP 36.4; O2SAT 96
[2023-12-18 04:00] VITALS: BP 138/73; PULSE 70; PULSE 72; RESP 16; TEMP 36.6; O2SAT 96; BMI 45.5
[2023-12-18 06:17] LABS: POC Glucose,Bedside 140 (70-110)
[2023-12-18 07:11] LABS: Basophils # 0.1 K/mm3 (0-0.2); Basophils % 0.6 % (0.1-2.0); Eosinophils # 0.3 K/mm3 (0.0-0.4); Eosinophils % 2.9 % (0.1-12.0); Hemoglobin 15.3 g/dL (14.1-18.0); Lymphocytes % 19.7 % (10-50); Mean Corpuscular HGB Conc 33.2 g/dL (31.8-35.4); Mean Corpuscular Hemoglobin 26.4 pg (27.0-31.2); Mean Corpuscular Volume 79.6 fl (80-94); Mean Platelet Volume 7.8 fl (7.4-10.4); Monocytes # 0.8 K/mm3 (0.1-1.0); Neutrophils # 6.8 K/mm3 (1.8-7.8); Neutrophils % 68.8 % (37.0-80.0); Platelet Count 160 K/mm3 (142-424); Red Blood Count 5.79 M/mm3 (4.60-6.20); Red Cell Distribution Width 15.1 % (11.5-17.5); White Blood Count 9.9 K/mm3 (4.8-10.8)
[2023-12-18 07:16] LABS: Chloride 96 mmol/L (98-107); Potassium 3.6 mmoL/L (3.5-5.1); Sodium 136 mmol/L (136-145)
[2023-12-18 07:19] LABS: Anion Gap 13.6 mEq/L (5-15); Blood Urea Nitrogen 43 mg/dl (9-20); Calcium 8.7 mg/dl (8.4-10.2); Carbon Dioxide 30 mmol/L (22.0-30.0); Creatinine Clearance Estimated 46 mL/min (50-200); Estimated Glomerular Filt Rate 38 ml/min (>60); GFR (African American) 46 ML/MIN (>60); Glucose 165 mg/dl (74-100)
[2023-12-18 08:00] VITALS: BP 133/67; PULSE 62; PULSE 70; RESP 16; TEMP 36.4; O2SAT 98
[2023-12-18] MEDS: FAMOTIDINE 20MG TABLET 20 MG PO (08:12)
[2023-12-18] MEDS: ASPIRIN EC 81MG TABLET 81 MG PO (08:12)
[2023-12-18] MEDS: POTASSIUM CHLORIDE 20MEQ TAB 20 MEQ PO (08:12)
[2023-12-18] MEDS: ENOXAPARIN 40MG/0.4ML SYRINGE 40 MG SUBCUT (08:13)
[2023-12-18] MEDS: FUROSEMIDE 40MG/4ML VIAL 40 MG IV (08:13)
[2023-12-18] MEDS: EMPAGLIFLOZIN 10MG TABLET 10 MG PO (08:13)
[2023-12-18] MEDS: METOPROLOL SUCCINATE XL 25MG TABLET 25 MG PO (08:13)
--- NOTE | 2023-12-18 08:13 | EXP.ACUTE.PN ---
Subjective *Date: 12/18/23 *Time: 08:49 Interval history: Today's labs chemistries show BUN of 43 and creatinine 1.8. Patient is sitting up in a chair and states he feels great. He did eat all of his breakfast. Feels he is ready to go home. He did sleep. He denies chest pain and shortness of breath. He is voiding QS. Bowels have moved. Medical Exam Vital signs and Labs for Last 24 Hours: Vital Signs Temp Pulse Pulse Resp BP Pulse Ox O2 Del Method 12/18/23 08:00 97.5 F L 62 16 133/67 98 Room Air 12/18/23 06:49 Room Air 12/18/23 05:00 Room Air 12/18/23 04:00 70 12/18/23 04:00 97.8 F 72 16 138/73 96 Room Air 12/18/23 03:00 CPAP 12/18/23 01:00 CPAP 12/18/23 00:00 70 12/18/23 00:00 97.6 F 65 18 145/60 H 96 Room Air 12/17/23 22:52 Room Air 12/17/23 21:00 Room Air 12/17/23 20:20 Room Air 12/17/23 20:00 65 12/17/23 20:00 97.4 F L 69 18 136/61 96 Room Air 12/17/23 18:13 Room Air 12/17/23 17:00 Room Air 12/17/23 16:00 70 12/17/23 15:59 97.9 F 48 L 18 124/90 99 Room Air 12/17/23 15:00 Room Air 12/17/23 13:00 Room Air 12/17/23 12:00 80 12/17/23 11:45 97.6 F 46 L 16 144/52 H 96 12/17/23 11:00 Room Air Intake and Output 12/17/23 12/18/23 12/18/23 19:59 03:59 11:59 Intake Total 1190 / 1190 Output Total 2250 / 2250 500 / 2750 Balance -1060 / -1060 -500 / -1560 Intake: Intake, Oral Amount 1190 / 1190 Output: Output, Urine Amount 2250 / 2250 500 / 2750 Other: Number of Unmeasured Voids 0 Number of Bowel Movements 1 Weight 336 lb 3.279 oz Patient Weight 10/28/24 11:59 Weight 336 lb 3.279 oz Laboratory Results - last 24 hr 12/17/23 10:57: POC Glucose 168 H 12/17/23 15:47: POC Glucose 174 H 12/17/23 20:13: POC Glucose 196 H 12/18/23 06:10: POC Glucose 140 H 12/18/23 06:24: WBC 9.9, RBC 5.79, Hgb 15.3, Hct 46.0, MCV 79.6 L, MCH 26.4 L, MCHC 33.2, RDW 15.1, Plt Count 160, MPV 7.8, Neut % (Auto) 68.8, Lymph % (Auto) 19.7, [place] % (Auto) 8.0, Eos % (Auto) 2.9, Baso % (Auto) 0.6, Neut # (Auto) 6.8, Lymph # (Auto) 2.0, [place] # (Auto) 0.8, Eos # (Auto) 0.3, Baso # (Auto) 0.1, Sodium 136, Potassium 3.6, Chloride 96 L, Carbon Dioxide 30, Anion Gap 13.6, BUN 43 H, Creatinine 1.80 H, Estimated Creat Clear 46, Estimated GFR 38 L, Est GFR ( Amer) 46 L, Glucose 165 H, Calcium 8.7 I & O for Labs for Last 24 Hours: Intake & Output 12/15/23 12/16/23 12/17/23 12/18/23 11:59 11:59 11:59 11:59 Intake Total 1.125 / 1.125 1400 / 1400 1150 / 1150 1190 / 1190 Output Total 725 / 725 7501 / 7501 3900 / 3900 2750 / 2750 Balance -723.875 / -723.875 -6101 / -6101 -2750 / -2750 -1560 / -1560 Weight 337 lb 7 oz 337 lb 9.325 oz 336 lb 3.279 oz Constitutional: Present no acute distress Comment:: Sitting up in the chair. Drinking a second cup of coffee. Feels good. Respiratory: Present CTA bilaterally (Anteriorly and posteriorly) Cardiac: Present Regular Rate GI: Present soft and normal bowel sounds; Absent tenderness Extremities: Present edema (Bilateral pitting 1-2+) Neuro: Present alert, awake and oriented x 3 Assessment and Plan *Assessment and plan (1) Acute hypoxic respiratory failure: Status: Acute Category: Medical Code(s): J96.01 - Acute respiratory failure with hypoxia (2) Severe hypertension: Status: Acute Category: Medical Code(s): I10 - Essential (primary) hypertension (3) Flash pulmonary edema: Status: Acute Category: Medical Code(s): J81.0 - Acute pulmonary edema (4) Obstructive sleep apnea hypopnea, severe: Problem Comment: Severe FIDELINA currently doing well on AutoPap 8/12 cm, ICodeConnect, Goldy, DME, nasal pillow mask Status: Chronic Category: Medical Code(s): G47.33 - Obstructive sleep apnea (adult) (pediatric) (5) Congestive heart failure: Status: Chronic Qualifiers: Heart failure chronicity: chronic Heart failure type: diastolic Qualified Code(s): I50.32 - Chronic diastolic (congestive) heart failure Category: Medical Code(s): I50.9 - Heart failure, unspecified (6) HTN (hypertension): Status: Chronic Qualifiers: Hypertension type: essential hypertension Qualified Code(s): I10 - Essential (primary) hypertension Category: Medical Code(s): I10 - Essential (primary) hypertension (7) HLD (hyperlipidemia): Status: Chronic Qualifiers: Hyperlipidemia type: mixed hyperlipidemia Qualified Code(s): E78.2 - Mixed hyperlipidemia Category: Medical Code(s): E78.5 - Hyperlipidemia, unspecified (8) DM type 2 (diabetes mellitus, type 2): Status: Chronic Qualifiers: Diabetes mellitus complication status: with other specified complication Diabetes mellitus ad terminal makeup operator insulin use: unspecified correction insulin use status Qualified Code(s): E11.69 - Type 2 diabetes mellitus with other specified complication Category: Medical Code(s): E11.9 - Type 2 diabetes mellitus without complications (9) Morbid obesity: Status: Chronic Category: Medical Code(s): E66.01 - Morbid (severe) obesity due to excess calories (10) CAD (coronary artery disease): Status: Chronic Qualifiers: Associated angina: with other forms of angina Coronary Disease-Associated Artery/Lesion type: [place] artery [place] vs. transplanted heart: [place] heart Qualified Code(s): I25.118 - Atherosclerotic heart disease of [place] coronary artery with other forms of angina pectoris Category: Medical Code(s): I25.10 - Atherosclerotic heart disease of [place] coronary artery without angina pectoris (11) Elevated troponin: Status: Acute Category: Medical Code(s): R79.89 - Other specified abnormal findings of blood chemistry (12) Non compliance w medication regimen: Status: Acute Category: Medical Code(s): Z91.148 - Patient's other noncompliance with medication regimen for other reason (13) PVCs (premature ventricular contractions): Status: Acute Category: Medical Code(s): I49.3 - Ventricular premature depolarization (14) HFrEF (heart failure with reduced ejection fraction): Status: Acute Category: Medical Code(s): I50.20 - Unspecified systolic (congestive) heart failure (15) Atypical angina: Status: Acute Category: Medical Code(s): I20.89 - Other forms of angina pectoris (16) Acute on chronic heart failure with preserved ejection fraction (HFpEF): Status: Acute Category: Medical Code(s): I50.33 - Acute on chronic diastolic (congestive) heart failure (17) Non-STEMI (non-ST elevated myocardial infarction): Status: Resolved Category: Medical Code(s): I21.4 - Non-ST elevation (NSTEMI) myocardial infarction Plan Patient is most improved with diuresing. He continues to be followed by cardiology. He is probably ready for discharge to home. Will need to continue to monitor his renal function. Dr. Patton entry - Saw patient, agree with above note.
[2023-12-18] MEDS: FLUTICASONE PROP 50MCG NASAL SPRAY 16GM 1 SPRAY NS (08:14)
--- NOTE | 2023-12-18 09:04 | CA_ITS ---
APPROVED REPORT EXAM: Limited 2D Echocardiogram with contrast Building Performance Consultant: Deborah Courtney CRT Ht: 6 ft 0 in Wt: 337lbs BSA: 2.66 BP: 114/75 mmHg Indications: ef check, echo 12/15/23 30% Diabetes, CAD, Hyperlipidemia, Hypertension/HDD Echo Enhancing Agent Indication: Endocardial border delineation Agent(s) / Amount(s) Used: Definity 2 cc Comments: contrast given M-Mode Dimensions RVDd 4.06 cm (0.9-2.6) LVDd 6.02 cm (3.5-5.7) LVDs 4.82 cm (3.5-5.7) IVSd 1.25 cm (0.6-1.1) PWd 1.03 cm (0.6-1.1) EF (Teich) 40.10% FS 19.90% EDV (Teich) 181.40 mL ESV (Teich) 108.60 mL Other Information Study Quality: Fair Conclusion This is a limited TTE to evaluate for LVEF. Limited windows were obtained. Ultrasound enhancing agent is administered. The LV is normal in size. There is increased LV wall thickness. There is mild to moderate reduction in global LV systolic function. The septum is asynchronous. LVEF is 40%. Administration of ultrasound enhancing agent does not demonstrate evidence of LV thrombus. When compared to recent study from 12/15/2023, the LVEF is higher, this likely reflects the better visualization of the endocardial borders in the study due to administration of ultrasound enhancing agent. Electronically signed by : Sonia Gutierrez MD 12/18/2023 11:46:13
[2023-12-18] MEDS: DEFINITY US ECHO CONTRAST 2ML INJ 2 MG IV (10:42)
--- NOTE | 2023-12-18 11:25 | EXP.CARD.PN ---
Subjective Subjective Date: 12/18/23 Time: 10:00 Interval history: Diursed 10L since admission. Repeat ECHO pending. Exam Data for Last 24 hours Vital signs and Labs for Last 24 Hours: Temp Pulse Resp BP Pulse Ox O2 Del Method O2 Flow Rate 97.5 F L 62 16 133/67 98 Room Air 3 12/18/23 08:00 12/18/23 08:00 12/18/23 08:00 12/18/23 08:00 12/18/23 08:00 12/18/23 09:00 12/17/23 08:00 FiO2 30 12/15/23 06:46 Laboratory Results - last 24 hr 12/17/23 15:47: POC Glucose 174 H 12/17/23 20:13: POC Glucose 196 H 12/18/23 06:10: POC Glucose 140 H 12/18/23 06:24: WBC 9.9, RBC 5.79, Hgb 15.3, Hct 46.0, MCV 79.6 L, MCH 26.4 L, MCHC 33.2, RDW 15.1, Plt Count 160, MPV 7.8, Neut % (Auto) 68.8, Lymph % (Auto) 19.7, [place] % (Auto) 8.0, Eos % (Auto) 2.9, Baso % (Auto) 0.6, Neut # (Auto) 6.8, Lymph # (Auto) 2.0, [place] # (Auto) 0.8, Eos # (Auto) 0.3, Baso # (Auto) 0.1, Sodium 136, Potassium 3.6, Chloride 96 L, Carbon Dioxide 30, Anion Gap 13.6, BUN 43 H, Creatinine 1.80 H, Estimated Creat Clear 46, Estimated GFR 38 L, Est GFR ( Amer) 46 L, Glucose 165 H, Calcium 8.7 I & O for Last 24 hours: Intake & Output 12/15/23 12/16/23 12/17/23 12/18/23 23:59 23:59 23:59 23:59 Intake Total 761.125 / 6444.212 3127 / 1310 1670 / 1670 500 / 500 Output Total 4226 / 6326 6600 / 6600 4050 / 4050 750 / 750 Balance -3464.875 / -5164.875 -5290 / -5290 -2380 / -2380 -250 / -250 Weight 337 lb 7 oz 337 lb 9.325 oz 336 lb 3.279 oz Constitutional Constitutional: no acute distress, obese and cooperative *Routine HEENT Exam Eye: Present PERRL *Routine Respiratory Exam Respiratory: Present CTA bilaterally; Absent accessory muscle use, wheezes or crackles *Routine Cardiovascular Exam Cardiovascular: Present RRR, Normal S1 and Normal S2; Absent murmur, gallop or rubs *Routine Abdominal Exam Abdominal: Present soft; Absent tenderness *Routine Extremities Exam Extremities: Present pulses intact; Absent cyanosis or edema Comments: 2+ alberto high BLE edema and numerous non-infected excoriations *Routine Skin Exam Skin: Present intact; Absent erythema or wounds *Routine Neurological Exam Neurological: Present alert and oriented X3 Routine Psychiatric Exam Psychiatric: Present cooperative Progress Note: A&P Assessment and plan (1) Acute hypoxic respiratory failure: Status: Acute (2) Severe hypertension: Status: Acute (3) Flash pulmonary edema: Status: Acute (4) Obstructive sleep apnea hypopnea, severe: Problem details: Severe FIDELINA currently doing well on AutoPap 8/12 cm, ICodeConnect, Goldy, DME, nasal pillow mask Status: Chronic (5) HTN (hypertension): Status: Chronic (6) HLD (hyperlipidemia): Status: Chronic (7) DM type 2 (diabetes mellitus, type 2): Status: Chronic (8) Morbid obesity: Status: Chronic (9) CAD (coronary artery disease): Status: Chronic (10) Elevated troponin: Status: Acute (11) Non compliance w medication regimen: Status: Acute (12) HFrEF (heart failure with reduced ejection fraction): Status: Acute Assessment and Plan Assessment and Plan for All Diagnoses:: Acute Left Systolic Heart Failure - historically EF 45% in 2020 with minimal coronary disease. EF had improved and was stable for years - missed meds x1 month and came here with severe vol overload and elevated Trop - LHC here: mod dz in LAD and RCA, LV gram EF 20% ECHO EF 30% but all of that was in setting of severely elevated EDP which alters interpretation - pt diuresed 10L over the weekend and is on room air and feeling back to baseline, will repeat limted ECHO today - Cont Jardiance, pt has mild DAVID following diuresis - hold on Aldactone and Entresto - LifeVest if EF <35% - Consider repeat LHC with FFR of moderate disease CAD with NSTEMI 12/15/23 - Trop peaked at 0.18 - EKG shows inferior q-waves and lateral ischemic changes - LHC: moderate 40-50% dz in LAD/RCA not believed to be ischemic but could not check FFR in setting of severely elevated EDP - Cont ASA, Lovenox, BB, Statin, add Plavix Acute Kidney Injury - likely due to heavy diuresis - 10L - Cr 1.2 on arrival, now 1.8 - reduce Lasix to qd, hold on Entresto, Aldactone - repeat BMP tomorrow Frequent PVCs - cont Metoprolol, correct lytes Htn - improved/stable - cont Severe FIDELINA - recommend CPAP compliance Morbid Obesity, BMI 45 -needs aggressive weight loss via diet/exercise - consider OP GLP-1 DM-II - on Insulin at home - check A1C - cont Jardiance, consider GLP-1 HLD, goal <55 - LDL 109 - resume high dose statin *CV stable/improving. Repeat limited echo shows EF at least 40%. Discussed option of repeat cath with FFR with Dr. Jerome who states no need at this point as patient is improving. Can reassess as an outpatient on GDMT. Pt feels ready for DC home. CV DC Meds: Aspirin 81 mg 1 p.o. daily Plavix 75 mg 1 p.o. daily Toprol XL 25 mg 1 p.o. daily Jardiance 10 mg 1 p.o. daily Pt needs BMP and office f/u with us in 1 week. We will try and add Entresto and Aldactone at that time. Case discussed with his Attending, Dr. Patton.
[2023-12-18 11:33] LABS: POC Glucose,Bedside 165 (70-110)
[2023-12-18 11:41] LABS: POC Glucose,Bedside 169 (70-110)
[2023-12-18 11:52] VITALS: BP 115/62; PULSE 76; RESP 18; TEMP 36.4; O2SAT 98
[2023-12-18] MEDS: CLOPIDOGREL 300MG TABLET 300 MG PO (12:14)
[2023-12-18 14:49] LABS: Hemoglobin A1C 7.1 % (4.0-6.0)
--- NOTE | 2023-12-19 12:51 | SW/DCPLANNER ---
Hospital follow up phone call: patient stated that he is feeling much better. 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 Patient did not have any further questions/needs at this time.
--- NOTE | 2023-12-25 14:19 | P.DS_ITS ---
General Admission date:: 12/15/23 Discharge date: 12/18/23 HPI HPI HPI: 63-year-old male with history of CAD, CHF, hypertension, hyperlipidemia, diabetes presents to the ER with acute onset shortness of breath. Patient reports 1 hour ago he suddenly started feeling very short of breath. He also got sweaty. He stated his symptoms felt like his last heart attack, family brought him to the ER. Patient admits he has had a lot going on in his personal life and has missed multiple doses of his home medications including his Lasix and blood pressure medications. Patient reports he has not had fevers, chills, he does not report chest pain, he denies nausea, vomiting, abdominal pain, he does report increased swelling in the legs. He denies a history of COPD, does not smoke. No headache or dizziness. ROS otherwise negative. (above as per ER physician) The patient was evaluated in the ER and found to have CHF. He was started on Lasix and a nitro drip.. His chest x-ray showed pulmonary edema. His BNP was elevated. He was able to be weaned off of his nitroglycerin drip but did have to be placed on CPAP. He had significant diuresis with the IV Lasix. He was admitted for cardiology consult, further diuresis, and an echocardiogram. Of note, he states he has been off of his medications for over a month. Hospital Course Hospital Course Hospital Course: On admission patient was started on Lasix and CPAP. He diuresed well. He was able to weaned to nasal cannula for oxygen. Cardiology was consulted. Cardiology felt that he had a non-STEMI With acute on chronic HFpEF. Due to his non-STEMI and atypical angina he had a left cardiac catheterization ( see report). He was also scheduled for echocardiogram. He was to stay on aspirin 81 mg daily Toprol-XL 25 mg daily. Potassium was elevated and spironolactone was held. Patient's breathing did improve with diuresis after receiving the IV Lasix. EF was low and left ventricular pressures were elevated according the echo report. Echo showed an EF of 30%. GFR trended downward and Lasix was decreased. Cardiology did follow patient and noted a diuresis of 10 L since admission. Aldactone and Entresto continued to be held. He was continued with the metoprolol. Aggressive weight loss with diet and exercise was discussed. He was to continue with Jardiance. Repeat echo showed ejection fraction at least 40%. DC cardiac meds were to be aspirin 81 mg daily Plavix 75 mg daily Toprol-XL 25 mg daily and Jardiance 10 mg daily. Possible addition of Entresto and Aldactone at a later date with stable BMP. On 12/18/2023 he was stable to be discharged home. Medications as per cardiology as noted. Exam Data for Last 24 hours Vital signs and Labs for Last 24 Hours: Temp Pulse Resp BP Pulse Ox O2 Del Method O2 Flow Rate 97.5 F L 76 18 115/62 98 Room Air 3 12/18/23 11:52 12/18/23 11:52 12/18/23 11:52 12/18/23 11:52 12/18/23 11:52 12/18/23 15:00 12/17/23 08:00 FiO2 30 12/15/23 06:46 Narrative: Constitutional: Present no acute distress Comment:: Sitting up in the chair. Drinking a second cup of coffee. Feels good. Respiratory: Present CTA bilaterally (Anteriorly and posteriorly) Cardiac: Present Regular Rate GI: Present soft and normal bowel sounds; Absent tenderness Extremities: Present edema (Bilateral pitting 1-2+) Neuro: Present alert, awake and oriented x 3 Results Data Completed and Pending Completed studies during hospitalization [Text1]: 12/15/2023 CXR IMPRESSION: 1. Pulmonary edema/CHF. 2. Cardiomegaly. 12/15/2023 ECHO Conclusion Technically difficult study due to poor acoustic windows. Moderate to severe reduction in LV systolic function (LVEF 30%). Severe hypokinesis of the basal septal, inferoseptal, and anteroseptal LV saunders. Biatrial dilation. Mild to moderate MR. 03/16/2023 cardiac cath ANGIOGRAPHIC RESULTS The left main artery Normal The left anterior descending artery Is proximally normal and then has a concentric 40% stenosis immediately after the first septal pipe fitter supervisor and first diagonal artery. NATHAN II flow was present down the LAD. There are additional 40% mid vessel and distal stenosis The circumflex artery Is dominant and has diffuse mild 10% luminal regularities The right coronary artery Is nondominant yet still large and has mid vessel concentric 40 to 50% stenosis The BARNEY ventriculogram reveals Severe left ventricular dilatation with global hypokinesis estimated ejection fraction 25% The left ventricular end-diastolic pressure Critically elevated at 50 mmHg IMPRESSION Coronary artery disease as described above which is unlikely to be ischemic however the degree of decompensated heart failure is to critical to appropriately assess for ischemic heart disease New onset severely reduced ejection fraction Critically elevated LVEDP PLAN 1. Patient is critically ill with severely elevated LVEDP. He requires IV diuresis over the weekend. I would like to repeat the echocardiogram on Monday. In the setting of an LVEDP of 50 ejection fraction is not going to be accurate. Previously his ejection fraction was nearly normal and this may improve with additional diuresis. 2. If ejection fraction remains severely depressed on Monday after large-volume diuresis then consideration should be given to place a LifeVest. 3. Standard therapy for systolic heart failure 4. After patient is in a euvolemic state we may need to reconsider evaluating the LAD and right coronary artery lesion for ischemia. Currently the LVEDP is too elevated to appropriately and accurately assess with FFR 5. LDL less than 55 to achieve that high intensity statin 12/17/23 15:47: POC Glucose 174 H 12/17/23 20:13: POC Glucose 196 H 12/18/23 06:10: POC Glucose 140 H 12/18/23 06:24: WBC 9.9, RBC 5.79, Hgb 15.3, Hct 46.0, MCV 79.6 L, MCH 26.4 L, MCHC 33.2, RDW 15.1, Plt Count 160, MPV 7.8, Neut % (Auto) 68.8, Lymph % (Auto) 19.7, Giles % (Auto) 8.0, Eos % (Auto) 2.9, Baso % (Auto) 0.6, Neut # (Auto) 6.8, Lymph # (Auto) 2.0, Giles # (Auto) 0.8, Eos # (Auto) 0.3, Baso # (Auto) 0.1, Sodium 136, Potassium 3.6, Chloride 96 L, Carbon Dioxide 30, Anion Gap 13.6, BUN 43 H, Creatinine 1.80 H, Estimated Creat Clear 46, Estimated GFR 38 L, Est GFR ( Amer) 46 L, Glucose 165 H, Calcium 8.7 DS: Diagnosis Discharge Diagnosis (1) Acute hypoxic respiratory failure: Status: Acute Code(s): J96.01 - Acute respiratory failure with hypoxia (2) Severe hypertension: Status: Acute Code(s): I10 - Essential (primary) hypertension (3) Flash pulmonary edema: Status: Acute Code(s): J81.0 - Acute pulmonary edema (4) Obstructive sleep apnea hypopnea, severe: Status: Chronic Code(s): G47.33 - Obstructive sleep apnea (adult) (pediatric) Problem details: Severe FIDELINA currently doing well on AutoPap 8/12 cm, ICodeConnect, Goldy, DME, nasal pillow mask (5) HTN (hypertension): Status: Chronic Code(s): I10 - Essential (primary) hypertension Qualifiers: Hypertension type: essential hypertension Qualified Code(s): I10 - Essential (primary) hypertension (6) HLD (hyperlipidemia): Status: Chronic Code(s): E78.5 - Hyperlipidemia, unspecified Qualifiers: Hyperlipidemia type: mixed hyperlipidemia Qualified Code(s): E78.2 - Mixed hyperlipidemia (7) DM type 2 (diabetes mellitus, type 2): Status: Chronic Code(s): E11.9 - Type 2 diabetes mellitus without complications Qualifiers: Diabetes mellitus penitentiary insulin use: unspecified sweat box attendant insulin use status Diabetes mellitus complication status: with other specified complication Qualified Code(s): E11.69 - Type 2 diabetes mellitus with other specified complication (8) Morbid obesity: Status: Chronic Code(s): E66.01 - Morbid (severe) obesity due to excess calories (9) CAD (coronary artery disease): Status: Chronic Code(s): I25.10 - Atherosclerotic heart disease of [place] coronary artery without angina pectoris Qualifiers: Coronary Disease-Associated Artery/Lesion type: [place] artery [place] vs. transplanted heart: [place] heart Associated angina: with other forms of angina Qualified Code(s): I25.118 - Atherosclerotic heart disease of [place] coronary artery with other forms of angina pectoris (10) Elevated troponin: Status: Acute Code(s): R79.89 - Other specified abnormal findings of blood chemistry (11) Non compliance w medication regimen: Status: Acute Code(s): Z91.148 - Patient's other noncompliance with medication regimen for other reason (12) HFrEF (heart failure with reduced ejection fraction): Status: Acute Code(s): I50.20 - Unspecified systolic (congestive) heart failure Meds Home Medications and Allergies Home Medications ?Medication ?Instructions ?Recorded ?Confirmed ?Type atorvastatin 80 mg tablet 80 mg PO HS 09/25/21 12/15/23 History allopurinol 300 mg tablet 300 mg PO DAILY 03/02/22 12/15/23 History aspirin 81 mg tablet,delayed 81 mg PO DAILY 03/02/22 12/15/23 History release potassium citrate 15 mEq (1,620 15 meq PO BID 03/02/22 12/15/23 History mg) tablet,extended release clopidogrel 75 mg tablet 75 mg PO DAILY #30 tabs 12/18/23 Rx empagliflozin 25 mg tablet 25 mg PO DAILY #1 tab 12/18/23 12/15/23 Rx (Jardiance) furosemide 40 mg tablet (Lasix) 40 mg PO DAILY #30 tabs 12/18/23 Rx metoprolol succinate 25 mg 25 mg PO DAILY #30 tabs 12/18/23 Rx tablet,extended release 24 hr New Prescriptions to Start Prescriptions: clopidogrel Taz Patton furosemide [Lasix] Taz Patton metoprolol succinate Taz Patton Allergies Allergy/AdvReac Type Severity Reaction Status Date / Time No Known Allergies Allergy Verified 05/22/23 13:19 Discharge Plan Disposition Patient Disposition: Home, Self-Care Condition: Good Discharge Order Discharge Orders: Discharge Order (Routine); Ordered 12/18/23 Ordered By: Taz Patton Follow up Plan Follow up with: Taz Patton MD [Primary Care Provider] - 01/01/24 9:45 am Taz Chairez PA [Physician Sustainability Communicator] - 12/25/23 1:45 pm Prescriptions/Medication Reconciliation: New clopidogrel 75 mg Tablet 75 mg PO DAILY Qty: 30 0RF furosemide [Lasix] 40 mg tablet 40 mg PO DAILY Qty: 30 0RF Continued aspirin 81 mg tablet,delayed release (DR/EC) 81 mg PO DAILY allopurinol 300 mg tablet 300 mg PO DAILY potassium citrate 15 mEq tablet extended release 15 meq PO BID atorvastatin 80 MG tablet 80 mg PO HS Jardiance 25 mg tablet 25 mg PO DAILY Qty: 1 0RF Changed metoprolol succinate 25 MG tablet extended release 24 hr 25 mg PO DAILY Qty: 30 0RF Problem Reconciliation Problems Reviewed?: Yes Patient Discharge Instructions ACTIVITY: Limited activity DIET: low salt diet and cardiac Patient Instructions: Heart Failure, DI for Heart Failure Print Language: Greek Providers Primary Care Provider: Tza Patton Admit Provider: Taz Patton Attending Provider: Taz Patton
== END 2023-12-18 15:54 | disposition home or self-care (01) | DRG 280 ==
LOC: ER 08:11 → 2ND 08:14
PROVIDERS: Internal Medicine; Nurse Practitioner Family; Physician Assistant; Admitting Provider Family Medicine; Emergency Provider Emergency Medicine; PCP Family Medicine; Visit Provider Family Medicine
PROC: 4A023N7 Measurement of Cardiac Sampling and Pressure, Left Heart, Percutaneous Approach (ICD-10-PCS; principal; 2023-12-15 13:00)
DX: I21.4 Non-ST elevation (NSTEMI) myocardial infarction (principal); I50.21 Acute systolic (congestive) heart failure; J96.01 Acute respiratory failure with hypoxia; Z68.42 Body mass index [BMI] 45.0-49.9, adult; I42.9 Cardiomyopathy, unspecified; N17.9 Acute kidney failure, unspecified; G47.33 Obstructive sleep apnea (adult) (pediatric); E78.2 Mixed hyperlipidemia; E11.69 Type 2 diabetes mellitus with other specified complication; E66.01 Morbid (severe) obesity due to excess calories; Z91.148 Patient's other noncompliance with medication regimen for other reason; I25.118 Atherosclerotic heart disease of native coronary artery with other forms of angina pectoris; I49.3 Ventricular premature depolarization; Z91.199 Patient's noncompliance with other medical treatment and regimen due to unspecified reason; I11.0 Hypertensive heart disease with heart failure; I25.119 Atherosclerotic heart disease of native coronary artery with unspecified angina pectoris; E78.5 Hyperlipidemia, unspecified
CPT/HCPCS: 36415; 71045; 80048; 80053; 80061; 80076; 82803; 82962; 83036; 83605; 83735; 83880; 84484; 85025; 85378; 85610; 86803; 87389; 93005; 93306; 93308; 93458; 99152; 99291; C1725; C1760; C1769; J1644; J1650; J1940; J2250; J3010; J7620; Q9957; Q9967

== ENCOUNTER 2023-12-28 10:14 | Outpatient (CLI) | payer BC, SELFPAY ==
[2023-12-28 11:11] LABS: Anion Gap 12.9 mEq/L (5-15); Blood Urea Nitrogen 25 mg/dl (9-20); Calcium 9.4 mg/dl (8.4-10.2); Carbon Dioxide 29 mmol/L (22.0-30.0); Chloride 104 mmol/L (98-107); Estimated Glomerular Filt Rate 47 ml/min (>60); GFR (African American) 57 ML/MIN (>60); Glucose 166 mg/dl (74-100); Potassium 4.9 mmoL/L (3.5-5.1); Sodium 141 mmol/L (136-145)
== END 2023-12-28 23:59 | disposition home or self-care (01) ==
PROVIDERS: PCP Family Medicine; Visit Provider Physician Assistant
DX: I50.20 Unspecified systolic (congestive) heart failure (principal)
CPT/HCPCS: 36415; 80048

== ENCOUNTER 2024-01-22 08:53 | Outpatient (CLI) | payer BC, SELFPAY ==
[2024-01-22 10:25] LABS: Blood Urea Nitrogen 27 mg/dl (9-20); Calcium 9.4 mg/dl (8.4-10.2); Carbon Dioxide 27 mmol/L (22.0-30.0); Chloride 105 mmol/L (98-107); Estimated Glomerular Filt Rate 51 ml/min (>60); GFR (African American) 62 ML/MIN (>60); Glucose 222 mg/dl (74-100); Sodium 141 mmol/L (136-145)
== END 2024-01-22 23:59 | disposition home or self-care (01) ==
LOC: LAB 08:54
PROVIDERS: PCP Family Medicine; Visit Provider Physician Assistant
DX: I50.20 Unspecified systolic (congestive) heart failure (principal); I50.32 Chronic diastolic (congestive) heart failure; I25.118 Atherosclerotic heart disease of native coronary artery with other forms of angina pectoris; I10 Essential (primary) hypertension; E78.2 Mixed hyperlipidemia
CPT/HCPCS: 36415; 80048

== ENCOUNTER 2024-01-29 11:55 | Emergency (ER) | payer BC, SELFPAY ==
[2024-01-29 12:15] VITALS: BP 131/69; PULSE 55; RESP 20; TEMP 36.6; O2SAT 99; BMI 45.8
--- NOTE | 2024-01-29 12:50 | EXP.UTC ---
Discharge Plan Disposition Patient Disposition: Home, Self-Care Condition: Good Prescriptions Prescriptions: No Action aspirin 81 mg tablet,delayed release (DR/EC) 81 mg PO DAILY allopurinol 300 mg tablet 300 mg PO DAILY potassium citrate 15 mEq tablet extended release 15 meq PO BID Entresto 24-26 mg tablet 0RF furosemide [Lasix] 40 mg tablet 40 mg PO BID 90 Days Qty: 180 3RF Entresto 24-26 mg tablet 1 tab PO BID Qty: 60 5RF atorvastatin 80 MG tablet 80 mg PO HS clopidogrel 75 mg Tablet 75 mg PO DAILY Qty: 30 0RF metoprolol succinate 25 MG tablet extended release 24 hr 25 mg PO DAILY Qty: 30 0RF Jardiance 25 mg tablet 25 mg PO DAILY Qty: 1 0RF Referrals Follow up/Referrals: Taz Patton MD [Primary Care Provider] - See instructions Jhony Peters MD [Physician] - See instructions Vince Acosta MD [Physician] - See instructions Vignesh Madden III, MD [Staff Physician] - See instructions Raysa Saldivar APRN [Nurse Practitioner] - See instructions Activity Restrictions/Add. Instructions Additional Instructions/Restrictions: Aftrin sprayed in side that is activy bleeding may help with nose bleed Using Saline spray in your nose may help with dryness and irritation from CPap Small amount of vasoline just inside the nose may help with dryness and irritation Straight to ER if your nose starts back bleeding and you cannot get it to stop Follow up with ENT if you continue to have nose bleeds Clinical Impressions Clinical Impression: Epistaxis Instructions Patient Instructions: DI for Nosebleed, Nosebleed, Nosebleeds (Alternative Therapy) Print Language Print Language: Uzbek Discharge ED Provider: Jessy Gaspar [facility] General Stated complaint: nose bleed x 2 hours Mode of Arrival: Ambulatory Source of Information: Patient Time Seen by Provider: 01/29/24 12:50 Description of Symptoms (Recalled from Triage Doc. by RN): NOSE BLEED FOR 2 HRS, LET CPAP RUN DRY HEENT Symptoms (Recalled from RN notes): Yes Resp Symptoms (Recalled from RN notes): No Skin Symptoms (Recalled from RN notes): No MS Symptoms (Recalled from RN notes): No Functional Status (Recalled from RN notes): WNL History of Present Illness Provider Complaint: Patient states that last night he let his Cpap machine run dry and then this morning after he woke up his nose started bleeding on the left side States that he tried to get it to stop and couldnt so he came in to get it checked, while here the bleeding stopped but still wanted to get it looked at Related Data Home Medications ?Medication ?Instructions ?Recorded ?Confirmed atorvastatin 80 mg tablet 80 mg PO HS 09/25/21 01/29/24 allopurinol 300 mg tablet 300 mg PO DAILY 03/02/22 01/29/24 aspirin 81 mg tablet,delayed 81 mg PO DAILY 03/02/22 01/29/24 release potassium citrate 15 mEq (1,620 15 meq PO BID 03/02/22 01/29/24 mg) tablet,extended release Previous Rx's ?Medication ?Instructions ?Recorded clopidogrel 75 mg tablet 75 mg PO DAILY #30 tabs 12/18/23 empagliflozin 25 mg tablet 25 mg PO DAILY #1 tab 12/18/23 (Jardiance) metoprolol succinate 25 mg 25 mg PO DAILY #30 tabs 12/18/23 tablet,extended release 24 hr furosemide 40 mg tablet (Lasix) 40 mg PO BID 90 days #180 tabs 12/28/23 sacubitril 24 mg-valsartan 26 mg 1 tab PO BID #60 tabs 01/01/24 tablet (Entresto) Allergies Allergy/AdvReac Type Severity Reaction Status Date / Time No Known Allergies Allergy Verified 01/22/24 08:19 Worker's Comp Is this a Worker's Comp case?: No [facility] Disclaimer: The information contained in this section may have been updated after the patient was seen, as this information can be updated by other users. Medical History Sinusitis Exposure to 2019 novel coronavirus Drainage from wound Ureterolithiasis Calculus of kidney DAVID (acute kidney injury) Cholelithiasis SBO (small bowel obstruction) Non-ischemic cardiomyopathy PVCs (premature ventricular contractions) Hyperkalemia HFrEF (heart failure with reduced ejection fraction) Atypical angina Acute on chronic heart failure with preserved ejection fraction (HFpEF) History of left heart catheterization Congestive heart failure DM type 2 (diabetes mellitus, type 2) Non-STEMI (non-ST elevated myocardial infarction) Kidney stone History of chest pain History of heart attack Hyperlipidemia Hypertension Obstructive uropathy Acute renal failure Sinusitis Cellulitis AHUJA (dyspnea on exertion) Surgical History History of bowel resection History of lithotripsy History of tonsillectomy History of appendectomy Family History Other Alcoholism Cancer Coronary artery disease Diabetes Heart attack Hyperlipidemia Hypertension Stroke Social History Smoking Status: Never smoker alcohol intake: current alcohol intake frequency: holidays/special occasions only substance use type: denies use current occupational status: other Travel in the last 8 weeks: None adopted: No caregiver/support person: No household members: spouse, family and children housing: house lives independently: No marital status: number of children: 4 number of grandchildren: 13 education level: high school service: Yes ([employer]) status: retired branch: [employer] care home: No current occupational exposures/hazards: No pets and animals: No diet: low salt well-balanced diet: about half the time caffeine: Yes high-fat food intake: 0-1 times daily daily servings fruits/ve-4 daily servings of milk/calcium: 0-1 eating out: 1-3 times/week reads food labels: seldom or never special maggie needs: No agree to transfusion: Yes helmet use: Yes helmet use: always drive intox or ride w/ intox 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 water heater temp set < 120 deg: Yes working smoke detector in home: Yes fire extinguisher in home: Yes carbon monox detector in home: Yes firearms in home: Yes firearms unloaded and locked: Yes do you feel safe at home: Yes victim of physical abuse: No victim of sexual abuse: No ROS Obtained: Yes All systems reviewed & no additional complaints except as documented and Yes Systems reviewed as appropriate & no additional complaints except as documented Constitutional Constitutional: Reports system reviewed and no additional complaints, except as documented and Reports as per HPI ENT Ears, Nose, Mouth, and Throat: Reports system reviewed and no additional complaints, except as documented, Reports as per HPI and Reports epistaxis Cardiovascular Cardiovascular: Reports system reviewed and no additional complaints, except as documented and Reports as per HPI Respiratory Respiratory: Reports system reviewed and no additional complaints, except as documented and Reports as per HPI Gastrointestinal Gastrointestingal: Reports system reviewed and no additional complaints, except as documented and as per HPI Physical Exam General General appearance: alert and in no apparent distress ENT ENT exam: Present mucous membranes moist Expanded ENT Exam Nose exam: Present other (dried blood noted bilateral no active bleeding noted at this time ) Throat exam: Present normal inspection Respiratory Respiratory exam: Present normal lung sounds bilaterally; Absent respiratory distress or wheezes Cardiovascular Cardiovascular exam: Present regular rate, normal rhythm and normal heart sounds Neurological Exam Neurological exam: Present alert, oriented X3 and normal gait Medical Decision Making Medical Records Screening: Per USPSTF and CDC recommendations, given the prevalence of disease in our region, it is our hospital?s policy to screen for HIV and viral Hepatitis for all patients aged 18 and over and those with ongoing risk factors. Eliceo Inquiry Pt receiving controlled substance: No Eliceo was queried for this patient: No Vital Signs: 01/29/24 12:15 Temperature 97.9 F Temperature Source Oral Pulse Rate [Left Radial] 55 L Respiratory Rate 20 Blood Pressure [Left Arm] 131/69 Blood Pressure Mean [Left Arm] 89 02 Sat by Pulse Oximetry 99
[2024-01-29 13:06] VITALS: BP 131/69; PULSE 55; RESP 20; TEMP 36.6
== END 2024-01-29 13:07 | disposition home or self-care (01) ==
PROVIDERS: Emergency Provider Nurse Practitioner; PCP Family Medicine
DX: R04.0 Epistaxis (principal)
CPT/HCPCS: 99211; G0380

== ENCOUNTER 2024-03-21 14:43 | Outpatient (RCR) | payer BC, SELFPAY | END 2024-05-31 15:00 | disposition home or self-care (01) | LOC: CR 14:43 | PROVIDERS: Visit Provider Internal Medicine | DX: I25.118 Atherosclerotic heart disease of native coronary artery with other forms of angina pectoris (principal); I50.33 Acute on chronic diastolic (congestive) heart failure | CPT/HCPCS: 93798 ==

== ENCOUNTER 2024-04-04 10:30 | Outpatient (CLI) | payer BC, SELFPAY ==
--- NOTE | 2024-04-04 10:35 | CA_ITS ---
APPROVED REPORT EXAM: Limited 2D Echocardiogram with contrast Brazing Machine Setter: RT Cyn(R) Ht: 6 ft 0 in Wt: 338lbs BSA: 2.66 BP: 123/85 mmHg Indications: HFrEF, HTN, DM, hyperlipidemia, EF 40% 12/15/23, CAD, FIDELINA. Ordered as limited to reassess EF Echo Enhancing Agent Indication: Endocardial border delineation Agent(s) / Amount(s) Used: Definity 2 cc 2D Dimensions EF AP4 33.70 % GL Strain -10.9 % M-Mode Dimensions RVDd 4.37 cm (0.9-2.6) LVDd 5.77 cm (3.5-5.7) LVDs 4.65 cm (3.5-5.7) IVSd 0.94 cm (0.6-1.1) PWd 0.94 cm (0.6-1.1) EF (Teich) 39.40% FS 19.40% EDV (Teich) 164.60 mL ESV (Teich) 99.80 mL Other Information Study Quality: Fair Conclusion This is a limited TTE to evaluate for LV systolic function. Limited windows are obtained. Ultrasound enhancing agent is administered. The left ventricle is normal in size. There is increased LV wall thickness. There is mild global hypokinesis present. The septum is asynchronous. LVEF is 45%. Administration of ultrasound enhancing agent demonstrates no evidence of LV thrombus. Electronically signed by : Sonia Gutierrez MD 04/05/2024 21:24:55
[2024-04-04] MEDS: DEFINITY US ECHO CONTRAST 2ML INJ 2 MG IV (11:31)
== END 2024-04-04 23:59 | disposition home or self-care (01) ==
LOC: RT 10:31
PROVIDERS: PCP Family Medicine; Visit Provider Physician Assistant
DX: I50.20 Unspecified systolic (congestive) heart failure (principal)
CPT/HCPCS: 93308; Q9957

== ENCOUNTER 2024-04-11 10:47 | Day surgery (SDC) | payer BC, SELFPAY ==
[2024-04-09 13:41] VITALS: BMI 44.7
[2024-04-11 11:08] VITALS: BP 125/70; PULSE 64; RESP 18; TEMP 36.3; O2SAT 99
[2024-04-11] MEDS: LACTATED RINGERS 1000ML 1,000 ML 50 ML IV (11:17)
[2024-04-11 11:20] LABS: POC Glucose,Bedside 209 (70-110)
--- NOTE | 2024-04-11 12:08 | P.PNANES_ITS ---
[facility] Disclaimer: The information contained in this section may have been updated after the patient was seen, as this information can be updated by other users. Medical History Sinusitis Exposure to 2019 novel coronavirus Drainage from wound Ureterolithiasis Calculus of kidney DAVID (acute kidney injury) Cholelithiasis SBO (small bowel obstruction) Non-ischemic cardiomyopathy PVCs (premature ventricular contractions) Hyperkalemia HFrEF (heart failure with reduced ejection fraction) Atypical angina Acute on chronic heart failure with preserved ejection fraction (HFpEF) History of left heart catheterization Congestive heart failure DM type 2 (diabetes mellitus, type 2) Non-STEMI (non-ST elevated myocardial infarction) Kidney stone History of chest pain History of heart attack Hyperlipidemia Hypertension Obstructive uropathy Acute renal failure Sinusitis Cellulitis AHUJA (dyspnea on exertion) Surgical History History of cardiac cath History of bowel resection History of lithotripsy History of tonsillectomy History of appendectomy Family History Other Cancer Coronary artery disease Diabetes Heart attack Hyperlipidemia Hypertension Stroke Social History (Updated 04/11/24 @ 11:16 by Amanda Day RN) Smoking Status: Never smoker alcohol intake: current alcohol intake frequency: holidays/special occasions only substance use type: denies use current occupational status: retired Travel in the last 8 weeks: None adopted: No caregiver/support person: No household members: spouse, family and children housing: house lives independently: No marital status: number of children: 4 number of grandchildren: 13 education level: high school service: Yes ([employer]) status: retired branch: [employer] longterm: No current occupational exposures/hazards: No pets and animals: No diet: low salt well-balanced diet: about half the time caffeine: Yes high-fat food intake: 0-1 times daily daily servings fruits/ve-4 daily servings of milk/calcium: 0-1 eating out: 1-3 times/week reads food labels: seldom or never special maggie needs: No agree to transfusion: Yes helmet use: Yes helmet use: always drive intox or ride w/ intox 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 water heater temp set < 120 deg: Yes working smoke detector in home: Yes fire extinguisher in home: Yes carbon monox detector in home: Yes firearms in home: Yes firearms unloaded and locked: Yes do you feel safe at home: Yes victim of physical abuse: No victim of sexual abuse: No Have you lived/traveled outside [place] in past 30 days?: No Contact w/someone who lives/traveled outside US past 30 days?: No Exposure to someone with infectious disease in past 14 days?: No Do you have a fever (greater than 100.4 F or 38 C)?: No Have you tested positive for COVID-19: No Exposed to someone with COVID-19 in past 14 days?: No Do you have a sore throat?: No Do you have a cough?: No Do you have any weakness?: No Are you experiencing any nausea/vomitting?: No Do you have any diarrhea?: No Are you experiencing any unusual bleeding?: No Do you have any muscle aches/pain?: No Do you have any abdominal pain?: No Are you experiencing loss of taste or smell?: No [facility] Anesthesia Checklist Patient Identification Patient Identification: Arm Band Structural Data Admitted From: Home Planned Operative Procedure/s: Colonoscopy Consent for Planned Operative Procedure(s) Verified: Yes Verified Documents: Surgical Consent and History and Physical NPO Status Verified Time NPO: 00:00 Additional verifications Anesthesia Reactions: No Airway Assessment Mallampati Score:: Class II C-Spine Mobility Assessed: Yes TMJ Mobility Assessed: Yes Dentition: Edentulous Neurological Assessment Level of Consciousness: Awake, Alert and Appropriate Anesthesia Plan Anesthesia Risk discussed: Yes Anesthesia Plan: Verified ASA Class: III Anesthesia Type: MAC
--- NOTE | 2024-04-11 12:35 | P.HP_ITS ---
History of Present Illness *Admission Date: 04/11/24 *Reason for visit:: Screening for colon cancer *History of present illness: Mr. Mendez is a 63-year-old gentleman who is here for initial screening colonoscopy. The examination is deemed medically necessary for screening colonoscopy. The patient has been seen, interviewed and examined prior to the procedure by both myself and the anesthesia provider. [facility] Disclaimer: The information contained in this section may have been updated after the patient was seen, as this information can be updated by other users. Medical History Sinusitis Exposure to 2019 novel coronavirus Drainage from wound Ureterolithiasis Calculus of kidney DAVID (acute kidney injury) Cholelithiasis SBO (small bowel obstruction) Non-ischemic cardiomyopathy PVCs (premature ventricular contractions) Hyperkalemia HFrEF (heart failure with reduced ejection fraction) Atypical angina Acute on chronic heart failure with preserved ejection fraction (HFpEF) History of left heart catheterization Congestive heart failure DM type 2 (diabetes mellitus, type 2) Non-STEMI (non-ST elevated myocardial infarction) Kidney stone History of chest pain History of heart attack Hyperlipidemia Hypertension Obstructive uropathy Acute renal failure Sinusitis Cellulitis AHUJA (dyspnea on exertion) Surgical History History of cardiac cath History of bowel resection History of lithotripsy History of tonsillectomy History of appendectomy Family History Other Cancer Coronary artery disease Diabetes Heart attack Hyperlipidemia Hypertension Stroke Social History (Updated 04/11/24 @ 11:16 by Amanda Day RN) Smoking Status: Never smoker alcohol intake: current alcohol intake frequency: holidays/special occasions only substance use type: denies use current occupational status: retired Travel in the last 8 weeks: None adopted: No caregiver/support person: No household members: spouse, family and children housing: house lives independently: No marital status: number of children: 4 number of grandchildren: 13 education level: high school service: Yes ([employer]) status: retired branch: [employer]: No current occupational exposures/hazards: No pets and animals: No diet: low salt well-balanced diet: about half the time caffeine: Yes high-fat food intake: 0-1 times daily daily servings fruits/ve-4 daily servings of milk/calcium: 0-1 eating out: 1-3 times/week reads food labels: seldom or never special maggie needs: No agree to transfusion: Yes helmet use: Yes helmet use: always drive intox or ride w/ intox pick up driver: No water heater temp set < 120 deg: Yes working smoke detector in home: Yes fire extinguisher in home: Yes carbon monox detector in home: Yes firearms in home: Yes firearms unloaded and locked: Yes do you feel safe at home: Yes victim of physical abuse: No victim of sexual abuse: No Have you lived/traveled outside [place] in past 30 days?: No Contact w/someone who lives/traveled outside [place] past 30 days?: No Exposure to someone with infectious disease in past 14 days?: No Do you have a fever (greater than 100.4 F or 38 C)?: No Have you tested positive for COVID-19: No Exposed to someone with COVID-19 in past 14 days?: No Do you have a sore throat?: No Do you have a cough?: No Do you have any weakness?: No Are you experiencing any nausea/vomitting?: No Do you have any diarrhea?: No Are you experiencing any unusual bleeding?: No Do you have any muscle aches/pain?: No Do you have any abdominal pain?: No Are you experiencing loss of taste or smell?: No Other Medical History Have you received the Flu Vaccine for this season: No Have you received the Pneumonia Vaccine: No Review of Systems Review of Systems Review of systems (narrative): Negative *Cardiovascular Comments: Negative *Gastrointestinal Comments: Negative *Genitourinary Comments: Negative *Musculoskeletal Comments: Negative *Neurologic Comments: Negative Meds Home Medications and Allergies Home Medications ?Medication ?Instructions ?Recorded ?Confirmed ?Type atorvastatin 80 mg tablet 80 mg PO HS 09/25/21 04/11/24 History allopurinol 300 mg tablet 300 mg PO DAILY 03/02/22 04/11/24 History aspirin 81 mg tablet,delayed 81 mg PO DAILY 03/02/22 04/11/24 History release potassium citrate 15 mEq (1,620 15 meq PO BID 03/02/22 04/11/24 History mg) tablet,extended release empagliflozin 25 mg tablet 25 mg PO DAILY #1 tab 12/18/23 04/11/24 Rx (Jardiance) metoprolol succinate 25 mg 25 mg PO DAILY #30 tabs 12/18/23 04/11/24 Rx tablet,extended release 24 hr furosemide 40 mg tablet (Lasix) 40 mg PO BID 90 days #180 tabs 12/28/23 04/11/24 Rx sacubitril 24 mg-valsartan 26 mg 1 tab PO BID #60 tabs 01/01/24 04/11/24 Rx tablet (Entresto) sodium,potassium,mag sulfates 17.5 See Rx Instructions PO .COMPLEX 03/29/24 04/09/24 Rx gram-3.13 gram-1.6 gram oral soln #354 mL (Suprep Bowel Prep Kit) clopidogrel 75 mg tablet 75 mg PO DAILY 04/09/24 04/11/24 History pioglitazone 30 mg tablet (Actos) 30 mg PO DAILY 04/09/24 04/11/24 History New Prescriptions to Start Prescriptions: Allergies Allergy/AdvReac Type Severity Reaction Status Date / Time No Known Allergies Allergy Verified 04/11/24 11:01 Exam Data for Last 24 hours Vital signs and Labs for Last 24 Hours: Temp Pulse Resp BP Pulse Ox O2 Del Method 97.4 F L 64 18 125/70 99 Room Air 04/11/24 11:08 04/11/24 11:08 04/11/24 11:08 04/11/24 11:08 04/11/24 11:08 04/11/24 11:08 Laboratory Results - last 24 hr 04/11/24 11:11: POC Glucose 209 H I & O for Last 24 hours: Intake & Output 04/08/24 04/09/24 04/10/24 04/11/24 23:59 23:59 23:59 23:59 Weight 330 lb *Routine HEENT Exam Head: Present normocephalic Eye: Present EOMI and PERRL ENT: Present mucous membranes moist *Routine Neck Exam Neck: Present supple *Routine Respiratory Exam Respiratory: Present CTA bilaterally *Routine Cardiovascular Exam Cardiovascular: Present RRR *Routine Abdominal Exam Abdominal: Present soft and normoactive bowel sounds; Absent tenderness *Routine Rectal Exam Rectal:: deferred *Routine Genitalia Exam Genitalia:: deferred *Routine Extremities Exam Extremities: Absent cyanosis, clubbing or edema *Routine Skin Exam Skin: Present warm; Absent rash *Routine Neurological Exam Neurological: Present alert and oriented X3 Assessment and Plan *Assessment and plan (1) Screening for colon cancer: Status: Acute Category: Medical Code(s): Z12.11 - Encounter for screening for malignant neoplasm of colon Plan A/P: 1. Screening for colon cancer is the preprocedural diagnosis. The patient will be anesthetized/sedated using MAC sedation. The patient has been seen and examined. Cardiac and lung assessment prior to the examination is stable. Proceed with planned screening colonoscopy
--- NOTE | 2024-04-11 12:37 | [facility].PROCNOTE ---
[facility] Procedure Note Date: 04/11/24 Time: 12:54 Procedure Note:: Colonoscopy Procedure Report: Colonoscopy with cold snare polypectomy Endoscopist: Ryan Merlos II, MD Referring physician: Taz Patton MD Date of Procedure: April 11, 2024 Equipment: Olympus 190 variable stiffness pediatric colonoscope Sedation: MAC sedation Indication: Mr. Mendez is a 63-year-old gentleman who is here for initial screening colonoscopy. He reports no abdominal pain, weight loss, change in his bowel habits or rectal bleeding. He reports no family history of colon cancer. Procedure: Prior to the procedure, a history and physical exam was performed, and patient's medications and allergies were reviewed. The risks, benefits and alternatives of the sedation and procedure were discussed with the patient. All questions were answered and informed consent was obtained. The patient was brought to the procedure room. Patient identification and proposed procedure were verified by the physician and the nurse. The patient was placed in a left lateral decubitus position and the scope was passed under direct vision. Throughout the procedure, the patient's blood pressure, pulse, and oxygen saturations were monitored continuously. The colonoscopy was accomplished without difficulty. The patient tolerated the procedure well. Findings: On digital rectal examination there was normal rectal tone. There were no external hemorrhoids. The prostate was 2+, smooth, soft, symmetric without nodules. The colonoscope was introduced through the anal canal to the rectum and advanced to the cecum. The ileocecal valve and appendiceal orifice were identified. The scope was advanced a short distance into the ileum which appeared grossly normal. The scope was then withdrawn into the colon. There was a single 4 mm transverse colon polyp removed via cold snare polypectomy. The remaining cecum, ascending and transverse colon and mucosa were grossly normal. There were scattered diverticuli throughout the descending and sigmoid colon (LEFT colon). The rectum itself was normal. Upon retroflexion within the rectum there were grade 2 internal hemorrhoids. The preparation was excellent throughout with [place] Preparation Score of 9. The cecal time was 10 minutes. Impression: 1. Diminutive 4 mm transverse colon polyp 2. Left-sided diverticulosis 3. Grade 2 internal hemorrhoids Plan: I will follow-up the polyp histology and recommend repeat surveillance colonoscopy again in 7 to 10 years based upon the pathology. I would encourage bulking fiber supplementation on a maintenance basis.
[2024-04-11 13:01] VITALS: BP 98/47; PULSE 56; RESP 14; TEMP 36.2; O2SAT 94
[2024-04-11 13:11] VITALS: BP 115/76; PULSE 62; RESP 16; O2SAT 97
[2024-04-11 13:21] VITALS: BP 129/65; PULSE 66; RESP 18; O2SAT 98
[2024-04-11 13:31] VITALS: BP 133/72; PULSE 62; RESP 18; O2SAT 98
== END 2024-04-11 14:06 | disposition home or self-care (01) ==
PROVIDERS: PCP Family Medicine; Visit Provider Internal Medicine Gastroenterology
PROC: 0DJD8ZZ Inspection of Lower Intestinal Tract, Via Natural or Artificial Opening Endoscopic (ICD-10-PCS; CPT 45378; principal; 2024-04-11 12:00)
DX: K63.5 Polyp of colon (principal); K57.30 Diverticulosis of large intestine without perforation or abscess without bleeding; K64.1 Second degree hemorrhoids; Z12.11 Encounter for screening for malignant neoplasm of colon
CPT/HCPCS: 45385; 82962; J2704; J7120